=== PATIENT | male | born 1960 | race Caucasian/White ===

== ENCOUNTER → 2019-11-29 14:35 | Outpatient (BNVA) | payer MEDICARE, MEDICAID, SELFPAY | PROVIDERS: Family Provider Internal Medicine; PCP Internal Medicine; Visit Provider Specialist | DX: F31.9 Bipolar disorder, unspecified (principal) | CPT/HCPCS: 99213 ==

== ENCOUNTER 2019-12-17 11:50 | Inpatient (IN) | payer MEDICARE, MEDICAID, SELFPAY ==
[2019-12-17] VITALS (69 sets, daily range): BP systolic 79–132; BP diastolic 45–94; PULSE 65–124; RESP 5–23; TEMP 35.7–37.6; O2SAT 89–100; BMI 27.6
--- NOTE | 2019-12-17 12:07 | XR_ITS ---
WS: [id number] XR chest 1V portable [id number] REASON FOR EXAM: sob FINDINGS: Comparisons October 12, 2018. There is now evidence of an alveolar infiltrate in the basilar portion of the right lower lung. There is increased peribronchial markings noted bilaterally. There is normal appearance of the heart. XR/XR chest 1V portable [id number] IMPRESSION: Low-grade pneumonia bronchitis changes throughout both lung domínguez with pneumon ia right lower lung.
--- NOTE | 2019-12-17 12:09 | ECG_ITS ---
Measurements Intervals [place] Rate: 92 P: 46 [place]: 121 QRS: -4 QRSD: 92 T: 11 QT: 364 QTc: 452 SINUS RHYTHM LOW QRS VOLTAGE IN PRECORDIAL LEADS [QRS DEFLECTION < 1.0 mV IN CHEST LEADS] INCOMPLETE RIGHT BUNDLE BRANCH BLOCK [90+ ms QRS DURATION, TERMINAL R IN V1/V2, 40+ ms S IN I/aVL/V4/V5/V6] INTERPRETATION BASED ON A DEFAULT AGE OF 40 YEARS Compared to ECG 10/21/2015 20:02:40 Incomplete right bundle-branch block now present Electronically Signed On 12-18-2019 17:00:53 CDT by Lebron Nevarez M.D. [id number] hairston
--- NOTE | 2019-12-17 12:10 | USR_ITS ---
PROCEDURE INFORMATION: Exam: US Duplex Lower Extremity Veins, Bilateral Exam date and time: 12/17/2019 12:11 PM Age: 59 years old Clinical indication: Other: Leg weakness; Patient HX: History of dvt in the right TECHNIQUE: Imaging protocol: Real-time duplex ultrasound of the extremities with 2-D gee scale, color Doppler flow and spectral waveform analysis with image documentation. Complete exam focused on the bilateral lower extremity veins. COMPARISON: No relevant prior studies available. FINDINGS: Right deep veins: No deep venous thrombosis in the visualized right common femoral, popliteal, peroneal, or posterior tibial veins. Nonocclusive thrombus in the right superficial and deep femoral veins, which is reportedly chronic by history. Right superficial veins: Saphenofemoral junction is patent without thrombus. Left deep veins: No deep venous thrombosis in the visualized left common femoral, profunda femorals, superficial femoral, popliteal, peroneal, or posterior tibial veins. Left superficial veins: Saphenofemoral junction is patent without thrombus. Soft tissues: Subcutaneous edema. US/CV venous duplex [facility] [id number] IMPRESSION: 1. No deep venous thrombosis in the visualized left lower extremity. 2. Nonocclusive thrombus in the right superficial and deep femoral veins, which is reportedly chronic by history.
--- NOTE | 2019-12-17 12:12 | ED_ITS ---
HPI - General Adult General: Chief complaint: General Medical Stated complaint: fever/poss blood clot Time Seen by Provider: 12/17/19 11:53 History of Present Illness: HPI narrative: Patient caregiver reports the patient has had a fever today. Also report that he is usually able to help with transfers and with walking but today his legs are too weak to support him at all. Onset (ago): hour(s) Review of Systems General: Reports: 10 or more systems reviewed and unremarkable except in HPI and below Const: Reports: fever(s) Neuro: Reports: weakness in extremities and difficulty walking PFS ED PFSH: Medical History Alzheimers disease Bipolar 1 disorder Hypothyroidism, unspecified Trisomy 21 Social History Smoking and tobacco status: never smoked Alcohol intake: never Physical Exam HENMT: COMMON NORMALS: normocephalic HEAD & SCALP: normocephalic Neck/C-Spine: COMMON NORMALS: full ROM, no meningeal signs and no JVD Resp: COMMON NORMALS: normal respiratory effort, No retractions, No use of accessory muscles and clear to auscultation bilaterally AUSCULTATION: clear to auscultation bilaterally Cardio: COMMON NORMALS: no JVD, regular rate and regular rhythm RATE: regular rate RHYTHM: regular rhythm GI: COMMON NORMALS: Normal to inspection, nondistended, normoactive bowel sounds present Extremity: COMMON NORMALS: capillary refill normal, no joint enlargement and no clubbing, cyanosis or edema GENERAL: Yes weight-bearing difficulty Neuro: MENINGEAL SIGNS: Yes no meningeal signs Course Vital Signs: Vital signs: Vital Signs Temperature 99.7 F H 12/17/19 11:55 Pulse Rate 84 12/17/19 14:40 Respiratory Rate 19 H 12/17/19 14:40 Blood Pressure 97/54 12/17/19 14:40 Pulse Oximetry 89 L 12/17/19 14:40 [facility] - General Adult Lab Data: Labs: Lab Results 12/17/19 12/17/19 12/17/19 Range/Units 12:13 12:13 12:13 WBC 16.2 H (4.0-10.0) 10^3/ uL RBC 3.80 L (4.1-5.3) 10^6/u L Hgb 12.1 (11.7-16.6) g/dL Hct 38.9 L (42.0-52.0) % MCV 102.4 H (80-94) fL MCH 31.8 (28.0-34.0) pg MCHC 31.1 (30.0-36.0) g/dL RDW 14.3 (12.1-15.1) % Plt Count 139 (130-400) 10^3/c mm MPV 10.2 (7.4-10.4) fL Neut % (Auto) 90.6 % Lymph % (Auto) 3.5 % [place] % (Auto) 4.8 % Eos % (Auto) 0.1 % Baso % (Auto) 0.4 % Neut # (Auto) 14.7 H (1.8-7.7) 10^3/u L Lymph # (Auto) 0.6 L (0.8-4.8) 10^3/u L [place] # (Auto) 0.8 (0.2-0.9) 10^3/u L Eos # (Auto) 0.0 (0.0-0.8) 10^3/u L Baso # (Auto) 0.1 (0.0-0.1) 10^3/u L Nucleated RBC % (a uto) 0 % Nucleated RBCs # 0.0 /100WBC PT (10.5-13.3) SECO NDS INR (0.8-1.2) Sodium 143 (136-145) mmol/L Potassium 4.8 (3.5-5.1) mmol/L Chloride 104 (98-107) mmol/L Carbon Dioxide 26 (22-29) mmol/L Anion Gap 17.8 (5-19) BUN 20 (6-20) mg/dL Creatinine 1.3 H (0.7-1.2) mg/dL GFR Calculation 56.7 L (90-130) mL/min Glucose 128 H (65-115) mg/dL Calculated Osmolal ity 294 (285-295) mOsm/k g Lactate 3.0 H (0.5-2.2) mmol/L Calcium 8.9 (8.5-10.5) mg/dL Magnesium 1.8 (1.7-2.3) mg/dL Total Bilirubin 0.6 (0.15-1.2) mg/dL AST 26 (0-40) U/L ALT 16 (0-41) U/L Alkaline Phosphata se 78 (40-130) IU/L Troponin T Baselin e (0-15) ng/mL Troponin T 120 Min resighini (0-15) ng/mL Delta Troponin T (0-10) ABS# NT-Pro-B Natriuret Pep 122 (0-125) pg/mL Total Protein 6.4 L (6.6-8.7) g/dL Albumin 3.3 L (3.5-5.2) g/dL Globulin 3.1 (1.3-4.6) g/dL 12/17/19 12/17/19 12/17/19 Range/Units 12:13 12:13 14:19 WBC (4.0-10.0) 10^3/ uL RBC (4.1-5.3) 10^6/u L Hgb (11.7-16.6) g/dL Hct (42.0-52.0) % MCV (80-94) fL MCH (28.0-34.0) pg MCHC (30.0-36.0) g/dL RDW (12.1-15.1) % Plt Count (130-400) 10^3/c mm MPV (7.4-10.4) fL Neut % (Auto) % Lymph % (Auto) % [place] % (Auto) % Eos % (Auto) % Baso % (Auto) % Neut # (Auto) (1.8-7.7) 10^3/u L Lymph # (Auto) (0.8-4.8) 10^3/u L [place] # (Auto) (0.2-0.9) 10^3/u L Eos # (Auto) (0.0-0.8) 10^3/u L Baso # (Auto) (0.0-0.1) 10^3/u L Nucleated RBC % (a uto) % Nucleated RBCs # /100WBC PT 22.80 H (10.5-13.3) SECO NDS INR 1.93 H (0.8-1.2) Sodium (136-145) mmol/L Potassium (3.5-5.1) mmol/L Chloride (98-107) mmol/L Carbon Dioxide (22-29) mmol/L Anion Gap (5-19) BUN (6-20) mg/dL Creatinine (0.7-1.2) mg/dL GFR Calculation (90-130) mL/min Glucose (65-115) mg/dL Calculated Osmolal ity (285-295) mOsm/k g Lactate (0.5-2.2) mmol/L Calcium (8.5-10.5) mg/dL Magnesium (1.7-2.3) mg/dL Total Bilirubin (0.15-1.2) mg/dL AST (0-40) U/L ALT (0-41) U/L Alkaline Phosphata se (40-130) IU/L Troponin T Baselin e 21 H (0-15) ng/mL Troponin T 120 Min resighini 19.42 H (0-15) ng/mL Delta Troponin T -1.58 L (0-10) ABS# NT-Pro-B Natriuret Pep (0-125) pg/mL Total Protein (6.6-8.7) g/dL Albumin (3.5-5.2) g/dL Globulin (1.3-4.6) g/dL Discharge Plan Discharge Patient Disposition: Admitted As Inpatient Clinical Impression: Trisomy 21 Sepsis Qualifiers: Sepsis type: sepsis due to unspecified organism Sepsis acute organ dysfunction status: unspecified Qualified Code(s): A41.9 - Sepsis, unspecified organism Condition: Stable Referrals: Jimmy Gomez MD [Primary Care Provider] - Coding Level of Care Code ED Domestic Maid for [facility] Fwd Exam Detailed
[2019-12-17] MEDS: sodium chloride 0.9% 500 ML IV (12:25)
[2019-12-17 12:30] LABS: Basophils # 0.1 10^3/uL (0.0-0.1); Basophils % 0.4 %; Eosinophils % 0.1 %; Hematocrit 38.9 % (42.0-52.0); Hemoglobin 12.1 g/dL (11.7-16.6); Lymphocytes # 0.6 10^3/uL (0.8-4.8); Lymphocytes % 3.5 %; Mean Corpuscular HGB Conc 31.1 g/dL (30.0-36.0); Mean Corpuscular Hemoglobin 31.8 pg (28.0-34.0); Mean Corpuscular Volume 102.4 fL (80-94); Mean Platelet Volume 10.2 fL (7.4-10.4); Monocytes # 0.8 10^3/uL (0.2-0.9); Monocytes % 4.8 %; Neutrophils # 14.7 10^3/uL (1.8-7.7); Neutrophils % 90.6 %; Nucleated Red Blood Cells % 0 %; Platelet Count 139 10^3/cmm (130-400); Red Cell Distribution Width 14.3 % (12.1-15.1); White Blood Count 16.2 10^3/uL (4.0-10.0)
[2019-12-17 12:47] LABS: Troponin(5th) Baseline 21 ng/mL (0-15)
[2019-12-17 12:56] LABS: Alanine Aminotransferase 16 U/L (0-41); Albumin Level 3.3 g/dL (3.5-5.2); Alkaline Phosphatase 78 IU/L (40-130); Anion Gap 17.8 (5-19); Aspartate Amino Transferase 26 U/L (0-40); Blood Urea Nitrogen 20 mg/dL (6-20); Calcium 8.9 mg/dL (8.5-10.5); Carbon Dioxide 26 mmol/L (22-29); Chloride 104 mmol/L (98-107); Globulin 3.1 g/dL (1.3-4.6); Glomerular Filtration Rate 56.7 mL/min (90-130); Glucose 128 mg/dL (65-115); Magnesium 1.8 mg/dL (1.7-2.3); NT Pro B Type Natriuretic Pept 122 pg/mL (0-125); Osmolality Calculated 294 mOsm/kg (285-295); Potassium 4.8 mmol/L (3.5-5.1); Sodium 143 mmol/L (136-145); Total Bilirubin 0.6 mg/dL (0.15-1.2); Total Protein 6.4 g/dL (6.6-8.7)
[2019-12-17] MEDS: piperacillin-tazobactam 4.5 GM in sodium chloride 0.9% (plus) 50 ML IV (13:35)
--- NOTE | 2019-12-17 14:09 | ECG_ITS ---
Measurements Intervals [place] Rate: 72 P: 43 [place]: 129 QRS: 23 QRSD: 90 T: 40 QT: 398 QTc: 436 SINUS RHYTHM LOW QRS VOLTAGE IN PRECORDIAL LEADS [QRS DEFLECTION < 1.0 mV IN CHEST LEADS] Compared to ECG 10/21/2015 20:02:40 No significant changes Electronically Signed On 12-18-2019 17:06:46 CDT by Lebron Nevarez M.D. [id number]
[2019-12-17] MEDS: lidocaine 2% Urojet 20 mL TOPICAL (14:33)
[2019-12-17] MEDS: sodium chloride 0.9% 1,000 ML 999 ML IV (14:41)
[2019-12-17 14:43] LABS: Troponin 5 2HR 19.42 ng/mL (0-15)
--- NOTE | 2019-12-17 14:56 | PC.NURSE ---
unable to get past the prostate with multiple attempts and multiple different sizes of catheters.
--- NOTE | 2019-12-17 14:57 | PC.NURSE ---
Patient bladder scanned and only 94 mL in bladder
[2019-12-17 15:00] LABS: INR 1.93 (0.8-1.2)
[2019-12-17 15:01] LABS: Troponin 5 2HR Delta -1.58 ABS# (0-10)
--- NOTE | 2019-12-17 15:06 | CTR_ITS ---
PROCEDURE INFORMATION: Exam: CT Abdomen And Pelvis With Contrast Exam date and time: 12/17/2019 3:09 PM Age: 59 years old Clinical indication: Patient HX: Fever, weakness, SOB, abd discomfort; Additional info: Abd pain TECHNIQUE: Imaging protocol: Computed tomography of the abdomen and pelvis with intravenous contrast. Radiation optimization: All CT scans at this facility use at least one of these dose optimization techniques: automated exposure control; mA and/or kV adjustment per patient size (includes targeted exams where dose is matched to clinical indication); or iterative reconstruction. Contrast material: OMNI 300; Contrast volume: 95 ml; Contrast route: 20G; COMPARISON: US Bladder wwo Post Void [id number] 01/15/2014 10:32 AM RADIATION DOSE METRICS: Total DLP: 1330.32 mGy-cm FINDINGS: The examination performed is degraded by motion artifact. Lungs: Interstitial prominence and chronic granulomatous disease. Poorly defined 4 mm nodular density in the left lower lobe (series 2: Image 1).For patients at low risk (minimal or absent history of smoking and of other known risk factors), no routine follow-up is indicated. For patients at high risk (history of smoking or of other known risk factors), consider optional CT Chest at 12 months. [place] H, Fleischner Society, 2017. Borderline cardiomegaly. Small hiatal hernia. Liver: Macey's lobe, without focal hepatic mass. Gallbladder and bile ducts: No cholelithiasis or biliary ductal dilatation. Pancreas: No pancreatic mass or ductal dilatation. Spleen: No splenomegaly. 10 mm accessory spleen. Adrenals: Unremarkable adrenals. Kidneys and ureters: Dilatation of the left renal pelvis and/or parapelvic cysts, which are poorly differentiated in the absence of contrast opacification. No ureteral dilatation. Stomach and bowel: Questionable wall thickening in the nondistended stomach. No significant small bowel dilatation. Copious stool, in a pattern of constipation. Diverticula, without pericolonic inflammation. Appendix: No acute appendicitis. Intraperitoneal space: No free fluid. Vasculature: Normal caliber of the abdominal aorta. Lymph nodes: No pathologically enlarged lymph nodes. Bladder: Marked circumferential bladder wall thickening. Reproductive: Prostate calcification. Bones/joints: Levoscoliosis. Degenerative change and disc bulging. Soft tissues: Bowel containing left inguinal hernia, without high-grade obstruction. CT/CT abdomen pelvis w con* [id number] IMPRESSION: 1. Dilatation of the left renal pelvis and/or parapelvic cysts, which are poorly differentiated in the absence of contrast opacification. 2. Marked circumferential bladder wall thickening. 3. Additional findings as described above. Radiation Dose CTDIVOL = (mGy): DLP = 1330.32 (mGy-cm)
--- NOTE | 2019-12-17 15:15 | PM.HP ---
Providers/Chief Complaint Primary Care Provider: Jimmy Gomez MD Chief Complaint: fever/poss blood clot History of Present Illness Nicanor Hung is a 59 year old male with Down syndrome who presents with 2-day history of increasing weakness. He has had some cough. A fever is indicated by his caregiver. He is not for sure exactly how high it was. No vomiting or diarrhea. Seems lethargic at times. Worker reports seemed to have some right lower quadrant pain, yesterday but obviously this is difficult for the patient to communicate. Has been urinating quite a bit but has not seem to indicate any pain. No exposure to anybody with COVID and no ill contacts. Lives with caregiver in independent living. Guardian is Teto Velasquez. No recent antibiotics. Patient cannot give a history as most of the time he is nonverbal. Caregiver with him now usually just drives him. While in the emergency department he required some oxygen. Urinalysis was attempted by cath 3 different times, without success. Caregiver indicates he urinates on his own without difficulty usually. Bladder scan was done while I was in the room and only 90 cc was indicated. Review of Systems General: Reports: ROS unobtainable due to mental status (Typically nonverbal with Down's) Medications/Allergies Home Medications Medication Instructions Recorded Confirmed Last Taken Type levothyroxine 112 mcg capsule 112 mcg PO DAILY #30 cap 08/21/19 12/17/19 12/17/19 Rx inhalational spacing device #1 each 09/26/19 12/17/19 Unknown Rx acetaminophen 325 mg tablet 650 mg PO QID PRN tab 11/08/19 12/17/19 Unknown History aluminum-mag hydroxide-simethicone 5 ml PO QID PRN 11/08/19 12/17/19 Unknown History 400 mg-400 mg-40 mg/5 mL oral susp bismuth subsalicylate 525 mg/15 mL 525 mg PO Q30M PRN 11/08/19 12/17/19 Unknown History oral suspension carbamide peroxide 6.5 % ear drops 5 drop EAR-BOTH DAILY 11/08/19 12/17/19 Unknown History citalopram 40 mg tablet 40 mg PO DAILY 11/08/19 12/17/19 12/17/19 History dextromethorphan-guaifenesin 10 10 ml PO Q4H PRN 11/08/19 12/17/19 Unknown History mg-100 mg/5 mL oral liquid donepezil 5 mg tablet 5 mg PO DAILY 11/08/19 12/17/19 12/17/19 History fluticasone 500 mcg-salmeterol 50 1 inh INHALATION BID 11/08/19 12/17/19 Unknown History mcg/dose blistr powdr for inhalation fluticasone propionate 230 2 puff INHALATION BID 11/08/19 12/17/19 Unknown History mcg-salmeterol 21 mcg/actuation HFA inhaler loratadine 10 mg tablet 10 mg PO DAILY 11/08/19 12/17/19 12/17/19 History magnesium hydroxide 2,400 mg/10 mL 5 ml PO DAILY PRN 11/08/19 12/17/19 Unknown History oral suspension olanzapine 2.5 mg tablet 5 mg PO DAILY 11/08/19 12/17/19 Unknown History olanzapine 5 mg tablet 5 mg PO DAILY 11/08/19 12/17/19 12/16/19 History warfarin 2 mg tablet 2 mg PO .DAILY DIRECTED tab 11/08/19 12/17/19 12/16/19 History ketoconazole 1 applic TOPICAL BID 12/17/19 12/17/19 12/17/19 History [id number] See Rx Instructions .ROUTE .COMPLEX 12/17/19 12/17/19 Unknown History [Neosporin (bib-gfy-boicy)] Allergies Allergy/AdvReac Type Severity Reaction Status Date / Time No Known Allergies Allergy Verified 11/29/19 15:02 PFSH Acute PFSH: Medical History (Updated 12/17/19 @ 15:25 by Ang Hunter MD) Alzheimers disease Bipolar 1 disorder Chronic anticoagulation DVT (deep venous thrombosis) Hypothyroidism, unspecified Pathological dislocation of both shoulder joints Trisomy 21 Social History Smoking and tobacco status: never smoked Alcohol intake: never Supplemental PFSH Information: Secondary to mental status unable to obtain family history. No current tobacco alcohol or illicit substance use. This was obtained from caregiver. Vitals/I&O/Wt Last Vital Signs Temp 99.7 F H 12/17/19 11:55 Pulse 84 12/17/19 14:40 Resp 19 H 05/31/20 14:40 BP 97/54 12/17/19 14:40 Pulse Ox 89 L 12/17/19 14:40 12/17/19 12/17/19 12/17/19 06:59 14:59 22:59 Intake Total 550 / 550 Balance 550 / 550 Weight last 48 hrs Weight 77.836 kg Physical Exam Narrative: EXAM NARRATIVE: General exam is no apparent distress, opens eyes and allows exam. Blood pressure noted to be low on admission but is now improved. HEENT: Pupils equally round. Oropharynx appears clear without erythema or exudate Neck is supple no lymphadenopathy or thyromegaly Cardiovascular regular rate and rhythm without murmur Lungs show a few crackles at the bases bilaterally. Abdomen is soft, obese. I cannot delineate any tenderness currently. No obvious organomegaly demonstrates uncircumcised male with a little bit of blood at his meatus Extremities trace edema bilaterally. No cyanosis or clubbing Skin without rash Neuro no focal deficits Data : 12/17/19 12:13 12/17/19 12:13 Micro: Microbiology 12/17/19 12:10 Blood Culture - Preliminary Blood SPECIMEN COLLECTED 12/17/19 12:13 Blood Culture - Preliminary Blood SPECIMEN COLLECTED Other data: CT abdomen and pelvis has been ordered Chest x-ray shows bibasilar infiltrates, official read pending. INR 1.93 LFTs largely normal. Troponin baseline 21, and no significant delta on repeat Venous duplex demonstrates nonocclusive thrombus right superficial and deep femoral veins which appear chronic EKG demonstrates sinus rhythm, left axis deviation, incomplete right bundle A&P Assessment and plan (1) Sepsis: As demonstrated by leukocytosis, history of fever, lethargy, hypotension on arrival. Source is not yet known. Per my read of x-ray he appears to have a bibasilar pneumonia. Initially will start on Zosyn If has any clinical worsening consider addition of vancomycin Continue to try to obtain urine in case UTI is present. With history of some abdominal discomfort we will also check CT abdomen and pelvis. I have visited briefly with urology that we may require their services for catheter placement if he cannot urinate it is known or has significant urinary retention. No evidence currently of septic shock as he already responded to fluid bolus. He is at high risk for fluid overload with his Down syndrome and already with some peripheral edema. IV fluids at maintenance currently and close clinical follow-up. Covid 19 testing will be done secondary to his history of cough and fever Status: Acute Qualifiers: Sepsis acute organ dysfunction status: unspecified Sepsis type: sepsis due to unspecified organism Qualified Code(s): A41.9 - Sepsis, unspecified organism (2) Leukocytosis: See above Status: Acute (3) Anticoagulated on Coumadin: INR near therapeutic. No other intervention for DVT prophylaxis needed today. Hold Coumadin currently in case any surgical procedures are needed If INR dropping tomorrow, consider institution of DVT prophylaxis dosing of Lovenox Status: Acute Additional A&P Information Down syndrome History of hypothyroidism, check TSH Dementia History of bipolar disorder Full code at this time Recently on Coumadin, INR 1.93. No DVT prophylaxis until reassessed tomorrow. Attestations Medical Necessity Statement*: Will need greater than 2 midnight stay for evaluation and treatment of sepsis Time Spent in Patient Care: Greater than 35 minutes Coding Level of Care Code Acute Electric Dolly Operator for [facility] Fwd Diagnoses Sepsis A41.9 Sepsis acute organ dysfunction status: unspecified Sepsis type: sepsis due to unspecified organism Leukocytosis D72.829 Anticoagulated on Coumadin Z79.01
[2019-12-17 15:23] LABS: Add On to Lab Order(s) Added
[2019-12-17] MEDS: iohexol 300 mg/mL 100 mL Btl IV (15:33)
[2019-12-17 15:45] LABS: Procalcitonin 0.81 ng/mL (0-0.5); Thyroid Stimulating Hormone 0.57 uIU/mL (0.27-4.20)
[2019-12-17] MEDS: sodium chloride 0.9% 1,000 ML 75 ML IV ×2 (16:15→22:41)
--- NOTE | 2019-12-17 16:25 | PC.NURSE ---
attempted to put on pt ,nonverbal appears scared and uncomfortable pulling away taken off for now sitting at bedside with him in isolation
--- NOTE | 2019-12-17 16:52 | PC.NURSE ---
continues to sit up in bed looking around on room air at this time sat of 92 heart rate 73. frequent looking out window of isolation room and looking at o2 sat probe and iv . appears scared at bedside in isolation room to offer calm support . nonverbal.but moves hand and head . ekg done
--- NOTE | 2019-12-17 18:09 | ECG_ITS ---
Measurements Intervals [place] Rate: 80 P: 46 [place]: 130 QRS: -11 QRSD: 93 T: 5 QT: 398 QTc: 460 SINUS RHYTHM LOW QRS VOLTAGE IN PRECORDIAL LEADS [QRS DEFLECTION < 1.0 mV IN CHEST LEADS] INCOMPLETE RIGHT BUNDLE BRANCH BLOCK [90+ ms QRS DURATION, TERMINAL R IN V1/V2, 40+ ms S IN I/aVL/V4/V5/V6] Compared to ECG 10/21/2015 20:02:40 Incomplete right bundle-branch block now present Electronically Signed On 12-18-2019 17:05:51 CDT by Lebron Nevarez M.D. [id number]
[2019-12-17 18:45] LABS: Troponin 5 6HR 16.19 ng/mL (0-15)
[2019-12-17 18:47] LABS: Troponin 5 6HR Delta -4.81 ng/L (0-12)
--- NOTE | 2019-12-17 19:12 | PC.NURSE ---
Unable to void Dr. Dozier at bedside with portable bladder scope for goodman placement. Large clots were expressed from meatus. Dr. Dozier unable to advance scope due to obstruction. Orders were given to prep for OR for cystoscopy for goodman placement and possible suprapublic catheter placement. Pt tolerated well.
--- NOTE | 2019-12-17 19:35 | PC.NURSE ---
Consent At 1935 DPOA Teto Lobato was notified by phone and consented to surgery for cystoscopy for goodman catheter placement with the possibility of supra pubic catheter placement. Second nurse verified authorization, see chart.
--- NOTE | 2019-12-17 19:38 | P.CONIM_ITS ---
Providers/Reason For Consult Consulting Physican/Specialty*: Urology/Dozier Reason for Consult*: Urinary retention, inability to pass catheter, urethral false passage Attending Physician: Ang Hunter MD Primary Care Provider: Jimmy Gomez MD History of Present Illness History of Present Illness Nicanor Hung is a 59 year old male who I evaluated for the first time tonight at the request of Ang Hunter for the above complaints. He is a 59-year-old Down syndrome patient who I saw x2 visits in 2013 for bloody urethral discharge and possibly a slow stream. Full work-up was reviewed including cystoscopy but his attendant felt that would require general anesthes ia. The bloody discharge spontaneously resolved. Bladder ultrasound showed no retention or bladder wall thickening. Cytology was negative. Physical exam revealed tight phimosis and bilateral testicular atrophy but no other gross pathology. Was placed on a return to clinic as needed basis. He presented this hospital stay with a 2-day history of weakness and cough. Subjective fever noted by his caregiver. Did not seem his usual self. No specific complaints of pain. No exposure to COVID although he is under COVID precautions. He is not able to address any of his symptoms due to nonverbal status. His blood pressure was somewhat low on evaluation in the emergency department and attempts at catheter placement were unsuccessful with ultimately bleeding noted. Further complicated by chronic warfarin 2 mg daily. Initially bladder scan showed about 90 cc in his bladder. Later he was rescanned with about 250 cc in his bladder but he did try to void and just had some blood. I was consulted for catheter placement PROCEDURE: Flexible cystoscopy with flexible cystoscope and flexible ureteroscope Scope was lubricated. Prepped and draped in the usual sterile fashion. Scope was introduced into the tight phimosis and under direct vision the urethral meatus was identified with the flexible cystoscope which was then passed and in the bulbar urethra there was a significant amount of trauma with no clear lumen identified. It appeared that there was probably a stricture in that area that was disrupted with catheter attempts. A 7 Faroese flexible ureteroscope was then utilized to see if this would help find the true lumen but all attempts were unsuccessful. I could not see anything that looked like a flap of normal mucosa leading to true lumen. Procedure was aborted after extensive trial of trying to identify the true lumen. Recommendations to take to the operating room for attempt at identification of the true lumen and if possible catheter placement over guidewire or suprapubic tube placement. Consent was obtained from his legal guardian for medical decisions Mr. Velasquez. Review of Systems General: Reports: ROS unobtainable due to mental status Meds/Allergies Home Medications and Allergies Home Medications Medication Instructions Recorded Confirmed Last Taken Type levothyroxine 112 mcg capsule 112 mcg PO DAILY #30 cap 08/21/19 12/17/19 12/17/19 Rx inhalational spacing device #1 each 09/26/19 12/17/19 Unknown Rx acetaminophen 325 mg tablet 650 mg PO QID PRN tab 11/08/19 12/17/19 Unknown History aluminum-mag hydroxide-simethicone 5 ml PO QID PRN 11/08/19 12/17/19 Unknown History 400 mg-400 mg-40 mg/5 mL oral susp bismuth subsalicylate 525 mg/15 mL 525 mg PO Q30M PRN 11/08/19 12/17/19 Unknown History oral suspension carbamide peroxide 6.5 % ear drops 5 drop EAR-BOTH DAILY 11/08/19 12/17/19 Unknown History citalopram 40 mg tablet 40 mg PO DAILY 11/08/19 12/17/19 12/17/19 History dextromethorphan-guaifenesin 10 10 ml PO Q4H PRN 11/08/19 12/17/19 Unknown History mg-100 mg/5 mL oral liquid donepezil 5 mg tablet 5 mg PO DAILY 11/08/19 12/17/19 12/17/19 History fluticasone 500 mcg-salmeterol 50 1 inh INHALATION BID 11/08/19 12/17/19 Unknown History mcg/dose blistr powdr for inhalation fluticasone propionate 230 2 puff INHALATION BID 11/08/19 12/17/19 Unknown Histo ry mcg-salmeterol 21 mcg/actuation HFA inhaler loratadine 10 mg tablet 10 mg PO DAILY 11/08/19 12/17/19 12/17/19 History magnesium hydroxide 2,400 mg/10 mL 5 ml PO DAILY PRN 11/08/19 12/17/19 Unknown History oral suspension olanzapine 2.5 mg tablet 5 mg PO DAILY 11/08/19 12/17/19 Unknown History olanzapine 5 mg tablet 5 mg PO DAILY 11/08/19 12/17/19 12/16/19 History warfarin 2 mg tablet 2 mg PO .DAILY DIRECTED tab 11/08/19 12/17/19 12/16/19 History ketoconazole 1 applic TOPICAL BID 12/17/19 12/17/19 12/17/19 History [id number] See Rx Instructions .ROUTE .COMPLEX 12/17/19 12/17/19 Unknown History [Neosporin ([id number])] Allergies Allergy/AdvReac Type Severity Reaction Status Date / Time No Known Allergies Allergy Verified 11/29/19 15:02 Current Medications Current Medications Generic Name Dose Route Start Last Admin Trade Name Freq PRN Reason Stop Dose Admin Sodium Chloride 1,000 mls @ 75 mls/hr 12/17/19 15:41 12/17/19 16:15 Sodium Chloride 0.9% IV 75 mls/hr .[id number] PATRICE Administration PFSH Acute PFSH: Medical History Alzheimers disease Bipolar 1 disorder Chronic anticoagulation DVT (deep venous thrombosis) Hypothyroidism, unspecified Pathological dislocation of both shoulder joints Trisomy 21 Social History Smoking and tobacco status: never smoked Alcohol intake: never Vitals/I&O/Wt Last Vital Signs Temp 99.7 F H 12/17/19 11:55 Pulse 78 12/17/19 16:30 Resp 14 12/17/19 16:30 BP 93/76 12/17/19 16:30 Pulse Ox 94 12/17/19 16:30 12/17/19 12/17/19 12/17/19 06:59 14:59 22:59 Intake Total 550 / 550 Balance 550 / 550 Weight last 48 hrs Weight 171 lb 9.6 oz Physical Exam Const: COMMON NORMALS: no acute distress, alert and well nourished GENERAL APPEARANCE: well kempt and well developed NUTRITIONAL APPEARANCE: obese morbidly obese HENMT: COMMON NORMALS: normocephalic and atraumatic HEAD & SCALP: normocephalic and atraumatic Eye: COMMON NORMALS: no scleral icterus Neck/C-Spine: GENERAL: Yes normal visual inspection Resp: COMMON NORMALS: normal respiratory effort EFFORT & INSPECTION: No labored and Yes Actively coughing OTHER: Coarse breath sounds. Cardio: COMMON NORMALS: regular rate and regular rhythm RATE: regular rate RHYTHM: regular rhythm Extremity: NARRATIVE EXTREMITY EXAM: Mild edema. 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
--- NOTE | 2019-12-17 20:08 | P.ANESASSM_ITS ---
Pre-Anesthetic Assessment Pre-Anesthetic Assessment: Height/Weight: Height 1.68 m Weight 77.836 kg Temp Pulse Resp BP Pulse Ox 99.7 F H 78 14 93/76 94 12/17/19 11:55 12/17/19 16:30 12/17/19 16:30 12/17/19 16:30 12/17/19 16:30 Proposed Procedure: Operation Date: 12/17/19 20:30 Proposed Procedures p Cystoscopy(Not Applicable) - Kwaku Dozier MD Last intake: Intake Last Liquid Date 12/17/19 Last Liquid Time 16:00 Last Solid Date 12/17/19 Last Solid Time 16:00 Social: Social History: No alcohol and No tobacco Exam: Pre-Anes Outpt Exam: alert, oriented x 3 (non verbal, ) and clear to auscultation bilaterally Airway: Submandibular: WNL Cervical ROM: WNL MP: 3 Dentition: False (upper and lower) History/ROS: No significant history except as noted Pulmonary: Pulmonary: Asthma CV/HEM: CV/HEM: DVT : : Chronic renal Insufficiency Hepatic: Hepatic: None reported GI: GI: GERD Metabolic: Metabolic: Thyroid Musc/skel: Musc/skel: OA/DJD Comments: bilat shoulder dislocations Neuropsych: Neuropsych: Bipolar and Dementia Comments: trisomy 21 Anesthetic Plan: ASA status: 3E Anesthesia: Anesthesia Evaluation and General Risk of > 500 ml blood loss (7ml/kg in children): No Meds/Allergies Current Medications: Current Medications Generic Name Dose Route Start Last Admin Trade Name Freq PRN Reason Stop Dose Admin Sodium Chloride 1,000 mls @ 75 ml s/hr 12/17/19 15:41 12/17/19 16:15 Sodium Chloride 0.9% IV 75 mls/hr .[id number] PATRICE Administration PFSH Anesthesia PFSH: Medical History Alzheimers disease Bipolar 1 disorder Chronic anticoagulation DVT (deep venous thrombosis) Hypothyroidism, unspecified Pathological dislocation of both shoulder joints Trisomy 21 Social History Smoking and tobacco status: never smoked Alcohol intake: never Supplemental PFSH Information: Secondary to mental status unable to obtain family history. No current tobacco alcohol or illicit substance use. This was obtained from caregiver. Data Anesthesia CBC & Chem 7: 12/17/19 12:13 12/17/19 12:13 Other Labs: Laboratory Results - last 48 hr 12/17/19 12/17/19 12/17/19 12:13 12:13 12:13 WBC 16.2 H RBC 3.80 L Hgb 12.1 Hct 38.9 L MCV 102.4 H MCH 31.8 MCHC 31.1 RDW 14.3 Plt Count 139 MPV 10.2 Neut % (Auto) 90.6 Lymph % (Auto) 3.5 [place] % (Auto) 4.8 Eos % (Auto) 0.1 Baso % (Auto) 0.4 Neut # (Auto) 14.7 H Lymph # (Auto) 0.6 L [place] # (Auto) 0.8 Eos # (Auto) 0.0 Baso # (Auto) 0.1 Nucleated RBC % (auto) 0 Nucleated RBCs # 0.0 PT INR Sodium 143 Potassium 4.8 Chloride 104 Carbon Dioxide 26 Anion Gap 17.8 BUN 20 Creatinine 1.3 H GFR Calculation 56.7 L Glucose 128 H Calculated Osmolality 294 Lactate 3.0 H Calcium 8.9 Magnesium 1.8 Total Bilirubin 0.6 AST 26 ALT 16 Alkaline Phosphatase 78 Troponin I 6 Hour Troponin I Hi Sens Del Troponin T Baseline Troponin T 120 Minute Delta Troponin T NT-Pro-B Natriuret Pep 122 Total Protein 6.4 L Albumin 3.3 L Globulin 3.1 Procalcitonin TSH 12/17/19 12/17/19 12/17/19 12:13 12:13 14:19 WBC RBC Hgb Hct MCV MCH MCHC RDW Plt Count MPV Neut % (Auto) Lymph % (Auto) [place] % (Auto) Eos % (Auto) Baso % (Auto) Neut # (Auto) Lymph # (Auto) [place] # (Auto) Eos # (Auto) Baso # (Auto) Nucleated RBC % (auto) Nucleated RBCs # PT 22.80 H INR 1.93 H Sodium Potassium Chloride Carbon Dioxide Anion Gap BUN Creatinine GFR Calculation Glucose Calculated Osmolality Lactate Calcium Magnesium Total Bilirubin AST ALT Alkaline Phosphatase Troponin I 6 Hour Troponin I Hi Sens Del Troponin T Baseline 21 H Troponin T 120 Minute 19.42 H Delta Troponin T -1.58 L NT-Pro-B Natriuret Pep Total Protein Albumin Globulin Procalcitonin TSH 12/17/19 12/17/19 14:19 18:15 WBC RBC Hgb Hct MCV MCH MCHC RDW Plt Count MPV Neut % (Auto) Lymph % (Auto) [place] % (Auto) Eos % (Auto) Baso % (Auto) Neut # (Auto) Lymph # (Auto) [place] # (Auto) Eos # (Auto) Baso # (Auto) Nucleated RBC % (auto) Nucleated RBCs # PT INR Sodium Potassium Chloride Carbon Dioxide Anion Gap BUN Creatinine GFR Calculation Glucose Calculated Osmolality Lactate Calcium Magnesium Total Bilirubin AST ALT Alkaline Phosphatase Troponin I 6 Hour 16.19 H Troponin I Hi Sens Del -4.81 L Troponin T Baseline Troponin T 120 Minute Delta Troponin T NT-Pro-B Natriuret Pep Total Protein Albumin Globulin Procalcitonin 0.81 H TSH 0.57 Micro: Microbiology 12/17/19 12:10 Blood Culture - Preliminary Blood SPECIMEN COLLECTED 12/17/19 12:13 Blood Culture - Preliminary Blood SPECIMEN COLLECTED Cardiac Studies: No Data to Display
--- NOTE | 2019-12-17 20:20 | PC.NURSE ---
Patient to OR To OR via bed on 3L NC. Consent received, preoperative check list completed and chlorhexidine gluconate bath given. Mask placed on patient for transport. 20 gauge IV to right forearm patent and intact.
--- NOTE | 2019-12-17 20:26 | SC_ITS ---
WS: [id number] C-arm [place] for Urology REASON FOR EXAM: intra-op FINDINGS: Intraoperative images show filling of the bladder with irregular diverticulum of the bladde r. The ureters were not identified on these images. SC/C-arm [facility] for Urology IMPRESSION: Dilated urinary bladder with diverticulum.
[2019-12-17] MEDS: piperacillin-tazobactam 3.375 GM in sodium chloride 0.9% (plus) 50 ML IV (20:34)
[2019-12-17] MEDS: iohexol 300 mg/mL 50 mL Btl (OR ONLY) XX (21:15)
[2019-12-17] MEDS: neomycin-poly-bacitracin oint 28 gm 1 APPLIC TOPICAL (21:48)
--- NOTE | 2019-12-17 21:48 | P.OP_ITS ---
Operative Report Date of procedure: December 17, 2019 Pre-op Diagnosis: Urinary retention, inability to place urethral catheter, multiple false passages Post-op diagnosis: same Procedure Done: 1. Urethroscopy 2. Retrograde urethrogram 3. Suprapubic tube placement percutaneously Implants: 10 [place]er suprapubic Das catheter Pathology: none sent Surgeon: Tasia Anesthesia: General Estimated blood loss: Less than 10 cc Urine output: Not measured Complications: No surgical complications but failed to be able to access the true urethral lumen due to severe false passages and urethral trauma. Suprapubic tube was placed percutaneously without difficulty. Findings: Despite extensive endoscopic investigation with a very small ureteroscope I could never find the true lumen. Retrograde urethrogram showed no extravasation into surrounding tissues but there was essentially blind ending passageways. 10 Hong Konger Das catheter placed suprapubically with percutaneous suprapubic tube catheter set Condition: stable Disposition: ICU Brief History: Homero is a very pleasant 59-year-old Down syndrome nonverbal patient who presented with fever, cough, pneumonia. A catheter was attempted to be placed to monitor urine output due to concern for sepsis. Apparently multiple attempts were made in the emergency department unsuccessfully with different catheters. There was some blood. Bladder scan at that time showed about 90 cc. Because the patient did spontaneously void on his own at baseline it was decided to give a further trial of voiding but he failed to initiate a stream with his much is 250 cc in his bladder. Prior to bringing him to the operating room a flexible cystoscopy and then a flexible ureteroscope were used to try to find the true lumen but they were unsuccessful. It was decided to reattempt in the operating room under anesthesia with more controlled setting and if unsuccessful place a suprapubic tube. His CT scan was thoroughly evaluated and the bladder though thickened and what appeared to be fairly low volume in it at that time was positioned such that there was no bowel anterior to the bladder. He had had no prior abdominal surgeries in that area. Did have a large inguinal hernia incision that was well-healed though on the right side. Procedure: After emergent evaluation examination and obtaining of informed consent from his medical guardian he was taken to the operating suite on 12/17/2019 where general anesthesia was administered under COVID precaution protocols since he is under investigation. Appropriate timeout was performed. Prepped and draped in usual sterile fashion in dorsolithotomy position pain careful attention to avoiding pressure points. The tight phimosis foreskin was stretched with hemostat. A 6 [place] Konger mini ureteroscope was then advanced through the preputial skin into the urethra. There were multiple levels of mild trauma but the most concerning area was a deep bulbar urethra where there was a generalized traumatized appearance. There appeared to be multiple directions of false passages. No severe bleeding at the time. I could never identify the true lumen nor any flaps of mucosa that might have been created with 1 of the false passages. I spent about 30 to 40 minutes looking. A retrograde urethrogram was performed showing no evidence of extravasation but did show some multiple blind-ending avenues. Gentle attempts at passing a flexible tip guidewire was unsuccessful. Fluoroscopy was utilized during this time and the wire just simply curled. Fluoroscopy was then utilized to visualize the bladder which was distended with contrast from a CT scan earlier. The fluoroscopic unit was then placed in a lateral position in order to help visualize the entry way into the bladder with a percutaneous needle placement. Approximately 1 inch above the symphysis pubis (which was the preferable area based on CT scan evaluation) a 22-gauge 3.5 spinal needle was advanced posteriorly and popped into the bladder. Good flow demonstrated without bleeding. The bladder could be palpated somewhat but he was rather obese with a thick abdominal wall. A percutaneous suprapubic catheter kit was utilized with a 14 Hong Konger grooved trocar, 10 Hong [place]er Das catheter, and stylette. The catheter was secured in the trocar in appropriate position. A puncture incision was made in the appropriately determined spot as above. Hemostat was passed down to the abdominal wall and blunt dissection was utilized. The suprapubic trocar was then passed without difficulty into the bladder with good drainage noted through the Das catheter. With the lateral position fluoroscopy assisting with guidance the trocar was passed approximately another 2 inches into the bladder well away from the posterior wall. The stylette was then placed in the catheter and the trocar was then backed off of the catheter. The balloon was inflated and confirmed to be functioning. Urine continued to drain. The catheter was secured to the skin with 2 heavy silk sutures and a drain sponge was placed. Some antibiotic ointment was used on the incision site. Catheter was confirmed to be functioning well and the procedure completed. He tolerated the procedure well without complications and was awakened in the operating room and sent directly to the ICU. PLANS: 1. Maintain suprapubic catheter with plans for change to a larger size catheter in approximately 1 month. 2. Sequential increase catheter size and at some point consider reevaluation of the urethra possibly from a retrograde and antegrade approach. 3. Given the degree of trauma I think that there is a reasonably good chance that he will stenosed completely and have a impassable urethral stricture.
--- NOTE | 2019-12-17 22:19 | PC.NURSE ---
Back to unit From OR at 2210. Eyes open spontanenously and lethargic. Large snoring on arrival to unit , 8 liters via simple mask. Breathing even and non-labored. Lung sounds coarse throughout. No pain per flacc scale. Pt has Suprapubic catheter sutured in place. Pt placed in droplet/contact isolation pending covid results.
--- NOTE | 2019-12-17 22:29 | ANE.PACU2 ---
Inpatient post-anesthesia follow up: Vital signs: Temperature 98.3 F Pulse Rate [Monito r] 100 Pulse Rate 74 Respiratory Rate 14 Blood Pressure [Le ft Arm] 80/46 Blood Pressure 95/61 Pulse Oximetry 94 Oxygen Delivery Me thod Oxymask Oxygen Flow Rate 10 Fraction of Inspir ed Oxygen Hydration adequate: Yes Nausea and vomiting: No Pain level: Other Pain level: non verbal appears comfortable Mental status: Baseline
[2019-12-17 22:51] LABS: Bilirubin Urine Neg (NEGATIVE); Blood Urine 3+ (Negative); Glucose Urine UA Norm (Normal); Ketones Urine Negative (Negative); Nitrate Urine Negative (Negative); Protein Urine Neg (Negative); Specific Gravity, Urine 1.005 (1.005-1.030); Urine Appearance SL Hazy (CLEAR); Urine Color Straw (Yellow); pH Urine 5 (5-7)
[2019-12-17 22:52] LABS: Add Urine Microscopic? YES; Leukocyte Esterase Urine Negative (Negative); Urobilinogen Urine Norm (Negative)
[2019-12-17 22:53] LABS: Add Urine Culture? Yes; Bacteria Urine TRACE; Hyaline Casts Urine 0-4; Mucus Urine TRACE; RBC Urine >100 /hpf (0-2); Squamous Epithelial Cell Urine 0-4 (0-5); WBC Urine 0-4 /hpf (0-5)
[2019-12-18] VITALS (27 sets, daily range): BP systolic 79–116; BP diastolic 52–75; PULSE 62–92; RESP 10–21; TEMP 36.1–37.4; O2SAT 89–98
--- NOTE | 2019-12-18 02:35 | PC.NURSE ---
Physician notification Lung sounds more coarse with rhonchi, pt asleep with shallow respiration. Weak cough. O2 saturations 90-93 on 3L NC. Frequent periodic episodes of sleep apnea, physician aware. Chest xray ordered and ordered to hold fluids until results obtained.
--- NOTE | 2019-12-18 02:39 | XR_ITS ---
WS: [id number] XR chest 1V portable [id number] REASON FOR EXAM: crackles FINDINGS: Cardiomegaly is noted the heart is larger than previous exam. Interstitial pulmonary edema seen bilaterally with small amount of right pleural effusion. There is no pneumonia, pneumothorax, or consolidation. XR/XR chest 1V portable [id number] IMPRESSION: Interstitial pulmonary edema Mild right pleural effusion.
[2019-12-18] MEDS: piperacillin-tazobactam 3.375 GM in sodium chloride 0.9% (plus) 50 ML IV ×3 (03:28→20:25)
[2019-12-18 03:32] LABS: INR 1.95 (0.8-1.2)
[2019-12-18 03:37] LABS: Basophils # 0.1 10^3/uL (0.0-0.1); Basophils % 0.7 %; Eosinophils # 0.2 10^3/uL (0.0-0.8); Eosinophils % 1.6 %; Hematocrit 37.6 % (42.0-52.0); Hemoglobin 11.6 g/dL (11.7-16.6); Lymphocytes # 0.8 10^3/uL (0.8-4.8); Lymphocytes % 8.4 %; Mean Corpuscular HGB Conc 30.9 g/dL (30.0-36.0); Mean Corpuscular Hemoglobin 32.1 pg (28.0-34.0); Mean Corpuscular Volume 104.2 fL (80-94); Mean Platelet Volume 10.3 fL (7.4-10.4); Monocytes # 0.6 10^3/uL (0.2-0.9); Monocytes % 6.5 %; Neutrophils # 7.8 10^3/uL (1.8-7.7); Neutrophils % 82.5 %; Nucleated Red Blood Cells % 0 %; Platelet Count 122 10^3/cmm (130-400); Red Blood Count 3.61 10^6/uL (4.1-5.3); Red Cell Distribution Width 14.5 % (12.1-15.1); White Blood Count 9.5 10^3/uL (4.0-10.0)
[2019-12-18 03:46] LABS: Alanine Aminotransferase 15 U/L (0-41); Albumin Level 2.8 g/dL (3.5-5.2); Alkaline Phosphatase 67 IU/L (40-130); Anion Gap 11.1 (5-19); Aspartate Amino Transferase 26 U/L (0-40); Blood Urea Nitrogen 15 mg/dL (6-20); Calcium 7.4 mg/dL (8.5-10.5); Carbon Dioxide 26 mmol/L (22-29); Chloride 109 mmol/L (98-107); Globulin 3.2 g/dL (1.3-4.6); Glomerular Filtration Rate 99.3 mL/min (90-130); Glucose 82 mg/dL (65-115); Osmolality Calculated 289 mOsm/kg (285-295); Potassium 4.1 mmol/L (3.5-5.1); Sodium 142 mmol/L (136-145)
[2019-12-18] MEDS: FUROsemide 10 mg/mL SDV 2mL 20 MG IVP (06:19)
--- NOTE | 2019-12-18 08:24 | PC.NURSE ---
Spoke with Nayeli Baldwin [phone] who states she is the warehouse operations manager at [facility] where the patient lives. Updated given Nayeli asked that the physician give her a call when he rounds on the patient this morning. Dr. Osborn notified and number given to him for Nayeli Baldwin.
--- NOTE | 2019-12-18 08:58 | P.PN_ITS ---
Subjective Subjective: Interval history: Non-verbal, but appears in good spirits. Sitter reports he has had mild episode of cough with breakfast. Vitals/I&O/Wt Last Vital Signs Temp 98.0 F 12/18/19 08:00 Pulse 74 12/18/19 08:00 Resp 18 12/18/19 08:00 BP 97/63 12/18/19 08:00 Pulse Ox 96 12/18/19 08:00 12/17/19 12/18/19 12/18/19 22:59 06:59 14:59 Intake Total 1028.75 / 1578.75 210 / 1788.75 50 / 50 Output Total 905 / 905 275 / 1180 1080 / 1080 Balance 123.75 / 673.75 -65 / 608.75 -1030 / -1030 Weight last 48 hrs Weight 77.836 kg Physical Exam Const: COMMON NORMALS: no acute distress; negative for patient oriented x3 HENMT: COMMON NORMALS: oropharynx normal Neck/C-Spine: COMMON NORMALS: no JVD (Although difficult to examine neck) Resp: COMMON NORMALS: normal respiratory effort and clear to auscultation bilaterally AUSCULTATION: clear to auscultation bilaterally Cardio: COMMON NORMALS: no JVD (Although difficult to examine neck), regular rhythm, S1 normal heart sound present, S2 normal heart sound present and No murmurs present (Cardio) RHYTHM: regular rhythm HEART SOUNDS: S1 normal heart sound present and S2 normal heart sound present GI: COMMON NORMALS: Normal to inspection, nondistended, normoactive bowel soun ds present, Soft to palpation and non-tender PALPATION: Yes Soft to palpation Extremity: COMMON NORMALS: no joint enlargement and no pedal edema Neuro: COMMON NORMALS: moves all extremities; negative for patient oriented x3 Skin: COMMON NORMALS: no rashes or lesions noted GENERAL SKIN EXAM: no rashes or lesions noted Urinary Catheter Management^: Suprapubic: Cath Placed During This Visit: yes Reason for Continuing Indwelling Catheter: Acute Urinary Retention or Obstruction Urinary Catheter Date of Insertion: 12/17/19 Urinary Catheter Time of Insertion: 21:48 Data : 12/18/19 03:04 12/18/19 03:04 Micro: Microbiology 12/17/19 12:10 Blood Culture - Preliminary Blood SPECIMEN COLLECTED 12/17/19 12:13 Blood Culture - Preliminary Blood SPECIMEN COLLECTED A&P Assessment and plan (1) Pneumonia: At this time continue antibiotic with Zosyn. He was noted to have some cough with food and drink today. Prescription with [facility] appears he frequently loses focus, sometimes eating too fast, sometimes coughing with f ood. Needs to be frequently redirected to pay attention. At [place] [facility] he is on mechanical soft diet. Nickel sized bites. Overall, unfortunately, condition recently has been declining. He has not been needing assistance with ambulation, and other tasks. Is not normally on oxygen. For now pending COVID-19 testing. Would benefit from additional assessment by speech therapy, possibly barium sw allow evaluation. Status: Acute (2) Sepsis: Sepsis appears to be improving, with leukocytosis resolved, no tachyca rdia, afebrile. Overnight IV fluids had to be stopped. Requiring oxygen currently. With noted pulmonary edema on x-ray. Received Lasix. At this time will hold off additional fluids. Continue antibiotics. Follow-up COVID-19 results. UA not very suggestive of infection. Hematuria suspected secondary to urethral manipulation. Status: Acute Qualifiers: Sepsis acute organ dysfunction status: unspecified Sepsis type: sepsis due to unspecified organism Qualified Code(s): A41.9 - Sepsis, unspecified orga nism (3) Leukocytosis: Resolved Status: Acute (4) Anticoagulated on Coumadin: INR still 1.95. Per discussion w urology can continue warfarin. Status: Acute (5) Urinary retention: Urinary catheter could not be placed, including with flexible cystoscopy and flexible ureteroscope due to multiple false lumens, trauma. Suprapubic catheter had to be placed. At this time will stay in place with plans for change to a larger size in 1 month. With sequential increase in catheter size consideration at some point will be given to reevaluation of her urethra. See urology note regarding more details. Status: Acute Additional A&P Information Down syndrome History of hypothyroidism, check TSH Dementia History of bipolar disorder VTE Attestations Medical Necessity Statement*: Continue admission versus management of pneu monia, improving sepsis, urinary retention, status post suprapubic catheter in the setting of chronic anticoagulation, VTE. Coding Level of Care Code Acute Channel Program Manager for [facility] Diagnoses Pneumonia J18.9 Sepsis A41.9 Sepsis acute organ dysfunction status: unspecified Sepsis type: sepsis due to unspecified organism Leukocytosis D72.829 Anticoagulated on Coumadin Z79.01 Urinary retention R33.9
[2019-12-18] MEDS: OLANZapine 5 mg TABLET PO (09:00)
[2019-12-18] MEDS: donepezil 5 MG Tablet PO (09:00)
[2019-12-18] MEDS: levothyroxine 112 mcg Tablet PO (09:00)
[2019-12-18 14:30] LABS: Coronavirus Lab Test PTC NOT DETECTED
[2019-12-18] MEDS: warfarin 2 mg Tablet PO (14:46)
--- NOTE | 2019-12-18 15:01 | PC.NURSE ---
Received a call from the warehouse material handler at this time that patient's COVIID test was negative.
--- NOTE | 2019-12-18 15:08 | PC.NURSE ---
Nayeli Baldwin warehouse associate at [facility] notified that patient's COVIID test was negative.
[2019-12-19] VITALS (12 sets, daily range): BP systolic 93–121; BP diastolic 58–75; PULSE 86–96; RESP 18–24; TEMP 36.9–37.8; O2SAT 85–94
[2019-12-19] MEDS: piperacillin-tazobactam 3.375 GM in sodium chloride 0.9% (plus) 50 ML IV (03:57)
[2019-12-19] MEDS: acetaminophen 325 mg Tablet 650 MG PO (05:03)
[2019-12-19 05:31] LABS: Basophils % 0.4 %; Eosinophils # 0.1 10^3/uL (0.0-0.8); Eosinophils % 1.3 %; Hematocrit 36.3 % (42.0-52.0); Hemoglobin 11.4 g/dL (11.7-16.6); Lymphocytes # 0.5 10^3/uL (0.8-4.8); Mean Corpuscular HGB Conc 31.4 g/dL (30.0-36.0); Mean Corpuscular Hemoglobin 32.8 pg (28.0-34.0); Mean Corpuscular Volume 104.3 fL (80-94); Mean Platelet Volume 10.5 fL (7.4-10.4); Monocytes # 0.4 10^3/uL (0.2-0.9); Monocytes % 5.1 %; Neutrophils # 7.2 10^3/uL (1.8-7.7); Neutrophils % 86.7 %; Nucleated Red Blood Cells % 0 %; Platelet Count 102 10^3/cmm (130-400); Red Blood Count 3.48 10^6/uL (4.1-5.3); Red Cell Distribution Width 14.5 % (12.1-15.1); White Blood Count 8.4 10^3/uL (4.0-10.0)
[2019-12-19 05:34] LABS: INR 2.15 (0.8-1.2)
--- NOTE | 2019-12-19 05:39 | PC.NURSE ---
Gave report to Kelsi LUNA on Med surg floor.
[2019-12-19 05:52] LABS: Alanine Aminotransferase 14 U/L (0-41); Albumin Level 2.9 g/dL (3.5-5.2); Alkaline Phosphatase 66 IU/L (40-130); Anion Gap 10.5 (5-19); Aspartate Amino Transferase 23 U/L (0-40); Blood Urea Nitrogen 9 mg/dL (6-20); Calcium 8.2 mg/dL (8.5-10.5); Carbon Dioxide 30 mmol/L (22-29); Chloride 105 mmol/L (98-107); Globulin 3.2 g/dL (1.3-4.6); Glomerular Filtration Rate 86.7 mL/min (90-130); Glucose 92 mg/dL (65-115); Osmolality Calculated 288 mOsm/kg (285-295); Potassium 4.5 mmol/L (3.5-5.1); Sodium 141 mmol/L (136-145); Total Bilirubin 0.6 mg/dL (0.15-1.2); Total Protein 6.1 g/dL (6.6-8.7)
[2019-12-19] MEDS: donepezil 5 MG Tablet PO (08:50)
[2019-12-19] MEDS: OLANZapine 5 mg TABLET PO (08:50)
[2019-12-19] MEDS: levothyroxine 112 mcg Tablet PO (08:50)
--- NOTE | 2019-12-19 09:28 | FL_ITS ---
WS: [id number] FL barium swallow modifd [id number] REASON FOR EXAM: Oral dysphagia FLUOROSCOPY TIME: 2 minutes FINDINGS: Fluoroscopy was performed for speech therapy. No definite deformities were seen. FL/FL barium swallow modifd [id number] IMPRESSION: Fluoroscopy performed for speech therapy please see their workup for details.
--- NOTE | 2019-12-19 14:47 | P.DS_ITS ---
Discharge Providers Date of Admission: 12/17/19 15:28 Date of Discharge: December 19, 2019 Attending Provider at Admission: Ang Hunter MD Attending Provider at Discharge: Geovanni Osborn Primary Care Provider: Jimmy Gomez MD Diagnoses at Discharge Discharge Diagnosis (1) Pneumonia: Status: Acute (2) Sepsis: Status: Acute Qualifiers: Sepsis acute organ dysfunction status: unspecified Sepsis type: sepsis due to unspecified organism Qualified Code(s): A41.9 - Sepsis, unspecified organism (3) Leukocytosis: Status: Acute (4) Anticoagulated on Coumadin: Status: Acute (5) Urinary retention: Status: Acute Reason for Visit Reason for Visit: fever/poss blood clot Hospital Course Hospital Course: Pleasant 59-year-old gentleman with Down syndrome, history of DVT, on chronic anticoagulation with warfarin, and other medical conditions, was admitted for assessment management after presenting with worsening weakness in the 2 preceding days, some cough, fever, lethargy, requiring some oxygen on presentation, noted to be in sepsis with leukocytosis, fever, mental status changes, hypotension on presentation. With pneumonia noted on imaging, so was started on Zosyn. Attempts to obtain urine studies were unsuccessful, with noted urinary retention, inability to place Das catheter. He responded well to fluid boluses and blood pressure improved. Given his symptoms also was tested for COVID-19 which was negative. Warfarin was held for 1 day as he required assessment by urology, unfortunately again with inability to find the true lumen despite fiber scopic evaluation, with finding of multiple false lumens, with noted trauma, possibly from attempts at Das placement earlier. Due to retention, suprapubic catheter had to be placed, and will be maintained at this time, with repeat follow-up with urology in office in about 1 month for consideration of exchange to larger size, and subsequently consideration of ad ditional reevaluation. CT abdomen pelvis performed on admission did not show findings concerning for mass, was noted to have circumferential bladder thickening, although urine studies once could be obtained were not suggestive of UTI. Perhaps secondary to prior infections, alternatively perhaps secondary to recurrent obstruction episodes. Noted some dilation of left renal pelvis. Is abscess quickly resolved. He was noted to have some coughing with food and drink, and per discussion with living facility unfortunately has been overall declining in terms of functional capacity, requiring assistance with walking over the last several weeks to months, as well as more frequent episodes of cough with food, requiring close supervision during eating. He was assessed by speech therapy here with finding of risk of aspiration, and subsequently noted penetration with all consistencies of diet but no aspiration on modified barium swallow evaluation, with recommendation for continuation of pur?ed diet with nectar thick liquids. As per discussion with his legal guardian, unfortunately given overall functional decline, he is at risk of recurrence of further aspiration episodes. Current episode of pneumonia has been improving well. Sepsis resolved. He has been comfortable, not in any distress, not short of breath, and has weaned down to room air on oxygen requirement at rest, although on home evaluation does still need 2 L by nasal cannula. Please continue close supervision with very strict aspiration precautions. His warfarin has been resumed, please continue regular INR monitoring. Latest INR today therapeutic at 2.15. Physical Exam Const: COMMON NORMALS: no acute distress; negative for patient oriented x3 GENERAL APPEARANCE: comfortable ORIENTATION/CONSCIOUSNESS: Yes Other orientation findings (Noncommunicative, which is baseline.) HENMT: COMMON NORMALS: oropharynx normal Neck/C-Spine: COMMON NORMALS: no JVD (Although difficult to examine neck) Resp: COMMON NORMALS: normal respiratory effort and clear to auscultation bilaterally AUSCULTATION: clear to auscultation bilaterally Cardio: COMMON NORMALS: no JVD (Although difficult to examine neck), regular rhythm, S1 normal heart sound present, S2 normal heart sound present and No murmurs present (Cardio) RHYTHM: regular rhythm HEART SOUNDS: S1 normal heart sound present and S2 normal heart sound present GI: COMMON NORMALS: Normal to inspection, nondistended, normoactive bowel sounds present, Soft to palpation and non-tender PALPATION: Yes Soft to palpation Extremity: COMMON NORMALS: no joint enlargement and no pedal edema Neuro: COMMON NORMALS: moves all extremities; negative for patient oriented x3 Skin: COMMON NORMALS: no rashes or lesions noted GENERAL SKIN EXAM: no rashes or lesions noted Urinary Catheter Management^: Suprapubic: Cath Placed During This Visit: yes Reason for Continuing Indwelling Catheter: Acute Urinary Retention or Obstruction Urinary Catheter Date of Insertion: 12/17/19 Urinary Catheter Time of Insertion: 21:48 Discharge Data Data Completed and Pending: Completed Studies During Hospitalization Category Date Time Status CT abdomen pelvis w con* [id number] Urge nt Cat Scan 12/17/19 15:06 Completed Modified barium s wallow [FL barium swallow modifd 742 30 Exams 12/19/19 09:28 Completed ] Routine XR chest 1V des ble [id number] Stat Exams 12/18/19 02:39 Completed XR chest 1V des ble [id number] Urgent Exams 12/17/19 12:07 [place] [id number] Urgent Ultrasound 12/17/19 12:10 Completed Pending at discharge Category Date Time Status Blood Culture Sta t Lab 12/17/19 12:10 Results Complete Blood Co unt w/Auto AM LABS Lab 12/20/19 04:00 Ordered Comprehensive Met abolic Panel AM LA BS Lab 12/20/19 04:00 Ordered Urine Culture Sta t Lab 12/17/19 22:20 Results Labs from last 24 hours 12/19/19 12/19/19 12/19/19 04:30 04:30 04:30 WBC 8.4 RBC 3.48 L Hgb 11.4 L Hct 36.3 L MCV 104.3 H MCH 32.8 MCHC 31.4 RDW 14.5 Plt Count 102 L MPV 10.5 H Neut % (Auto) 86.7 Lymph % (Auto) 6.0 Gates % (Auto) 5.1 Eos % (Auto) 1.3 Baso % (Auto) 0.4 Neut # (Auto) 7.2 Lymph # (Auto) 0.5 L Gates # (Auto) 0.4 Eos # (Auto) 0.1 Baso # (Auto) 0.0 Nucleated RBC % (a uto) 0 Nucleated RBCs # 0.0 PT 24.80 H INR 2.15 H Sodium 141 Potassium 4.5 Chloride 105 Carbon Dioxide 30 H Anion Gap 10.5 BUN 9 Creatinine 0.9 GFR Calculation 86.7 L Glucose 92 Calculated Osmolal ity 288 Calcium 8.2 L Total Bilirubin 0.6 AST 23 ALT 14 Alkaline Phosphata se 66 Total Protein 6.1 L Albumin 2.9 L Globulin 3.2 Vitals: Last Vital Signs Temp 98.6 F 12/19/19 12:00 Pulse 87 12/19/19 12:00 Resp 22 H 12/19/19 14:09 BP 103/64 12/19/19 12:00 Pulse Ox 85 L 12/19/19 13:44 Discharge Plan Discharge Patient Disposition: Xfer LTC Condition: Stable Prescriptions: New Augmentin 875-125 mg tablet 1 tab PO BID Qty: 14 RF: 0 Continued loratadine 10 mg tablet 10 mg PO DAILY RF: 0 olanzapine [Zyprexa] 5 mg tablet 5 mg PO DAILY RF: 0 Advair HFA 230-21 mcg/actuation HFA aerosol inhaler 2 puff INHALATION BID RF: 0 fluticasone propion-salmeterol [Advair Diskus] 500-50 mcg/dose blister with device 1 inh INHALATION BID RF: 0 olanzapine [Zyprexa] 2.5 mg tablet 5 mg PO DAILY RF: 0 carbamide peroxide [Debrox] 6.5 % drops 5 drop EAR-BOTH DAILY RF: 0 warfarin [Coumadin] 2 mg tablet 2 mg PO .DAILY DIRECTED RF: 0 citalopram [Celexa] 40 mg tablet 40 mg PO DAILY RF: 0 donepezil [Aricept] 5 mg tablet 5 mg PO DAILY RF: 0 dextromethorphan-guaifenesin [Adult Robitussin Peak Cold DM] 10-100 mg/5 mL liquid 10 ml PO Q4H PRN (Reason: COUGH/CONGESTION) RF: 0 bismuth subsalicylate 525 mg/15 mL suspension 525 mg PO Q30M PRN (Reason: DIARRHEA/STOMACH RELIEF) RF: 0 alum-mag hydroxide-simeth [Mylanta Maximum Strength] 400-400-40 mg/5 mL suspension 5 ml PO QID PRN (Reason: UPSET STOMACH/GAS RELIEF) RF: 0 magnesium hydroxide [Milk Of Magnesia Concentrated] 2,400 mg/10 mL suspension 5 ml PO DAILY PRN (Reason: Constipation) RF: 0 acetaminophen [Tylenol] 325 mg tablet 650 mg PO QID PRN (Reason: Pain) RF: 0 levothyroxine 112 mcg capsule 112 mcg PO DAILY Qty: 30 RF: 1 (DME) Compact Space Chamber Spacer See Rx Instructions .ROUTE .MEDSUPPLY Qty: 1 RF: 0 ketoconazole 2 % Cream 1 applic TOPICAL BID RF: 0 Neosporin ([id number]) 3.5-400-5,000 ra-saon-ruah Ointment In Packet See Rx Instructions .ROUTE .COMPLEX RF: 0 Discharge Orders: Discharge Order (Routine); Ordered 12/19/19 Ordered By: Geovanni Osborn Other Ambulatory Orders: DME: Oxygen (Order) Location: None Selected Ordered By: Geovanni Osborn Referrals: Jimmy Gomez MD [Primary Care Provider] - 12/25/19 1:45 pm Kwaku Dozier MD [Physician] - 01/17/20 10:45 am (Suprapubic catheter, possible urethral stricture, bladder wall thickening ) Discharge Diet: As Directed Discharge Activity: Resume usual activity Patient Instructions: Amoxicillin/Clavulanate Potassium (By mouth), Viral Pneumonia (DC), How to Care for Your Suprapubic Catheter (DC) Activity Restrictions/Additional Instructions: Strict aspiration precautions. Pur?ed diet, nectar thick liquids. Continue speech therapy follow-up. Continue catheter care. Maintain suprapubic catheter in place. Follow-up with urology in 1 month. With regards to new catheter: Shower and sponge bath are okay. Avoid soaking the area. 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
== END 2019-12-19 17:00 | DRG 871 ==
LOC: ER 14:49 → ICU 15:38 → MEDSURG 12-19 05:52
PROVIDERS: Family Medicine; Urology; Admitting Provider Internal Medicine; Emergency Provider Internal Medicine; Family Provider Internal Medicine; PCP Internal Medicine; Visit Provider Internal Medicine
PROC: 0WJR8ZZ Inspection of Genitourinary Tract, Via Natural or Artificial Opening Endoscopic Approach (ICD-10-PCS; CPT 51102; 2019-12-17 20:30)
DX: A41.9 Sepsis, unspecified organism (principal); J18.9 Pneumonia, unspecified organism; Q90.9 Down syndrome, unspecified; Z79.01 Long term (current) use of anticoagulants; F31.9 Bipolar disorder, unspecified; Z86.718 Personal history of other venous thrombosis and embolism; E03.9 Hypothyroidism, unspecified; R33.9 Retention of urine, unspecified
CPT/HCPCS: 12345; 36415; 51701; 51798; 71045; 74177; 74230; 76000; 80053; 81001; 83605; 83735; 83880; 84145; 84443; 84484; 85025; 85610; 87040; 87086; 87635; 92610; 92611; 93005; 93970; 94760; 96375; 99283; J0330; J1940; J2001; J2543; J2704; J2710; J3010; J3490; J7030; J7040; Q9967

== ENCOUNTER 2019-12-22 09:05 | Emergency (ER) | payer MEDICARE, MEDICAID, SELFPAY ==
[2019-12-22 09:15] VITALS: BP 121/58; PULSE 71; RESP 18; TEMP 36.6; O2SAT 95; BMI 30.6
--- NOTE | 2019-12-22 09:26 | ED_ITS ---
HPI - Male Genitourinary General: Chief complaint: Urogenital-Male Stated complaint: CATH ISSUE Time Seen by Provider: 12/22/19 09:15 Source: patient Mode of arrival: ambulatory Limitations: no limitations History of Present Illness: HPI Narrative: Patient was brought in due to continued urination through the penis. Patient has a suprapubic catheter intact but is not draining large amounts of fluid. Patient appears well. Patient appears in no pain. Patient was recently in the hospital for pneumonia and was noted to have urinary retention and had a suprapubic catheter put in place. Patient was noted to have a really diseased prostate and multiple false openings in the prostate which led to the suprapubic catheter placement. There is clear urine in the catheter and bag, caregiver was prompted to bring patient in due to urine output from the penis. Review of Systems General: Reports: 10 or more systems reviewed and unremarkable except in HPI and below : Reports: other (Suprapubic cath dysfunction) [facility] ED PFSH: Medical History (Updated 12/22/19 @ 10:28 by ELZBIETA Angulo) Alzheimers disease Bipolar 1 disorder Chronic anticoagulation DVT (deep venous thrombosis) Hypothyroidism, unspecified Pathological dislocation of both shoulder joints Trisomy 21 Social History Smoking and tobacco status: never smoked Alcohol intake: never Physical Exam Const: COMMON NORMALS: no acute distress and well nourished GENERAL APPEARANCE: cooperative HENMT: COMMON NORMALS: normocephalic and Normal external nose present HEAD & SCALP: normal to inspection and normocephalic NOSE: Normal external nose present Eye: GENERAL EYE: appearance normal, both eyes and all related structures Neck/C-Spine: COMMON NORMALS: full ROM Lymph: LYMPHATIC: no lymphadenopathy noted Chest: COMMONS NORMALS: normal inspection of the chest Resp: COMMON NORMALS: normal respiratory effort Cardio: COMMON NORMALS: regular rate and regular rhythm RATE: regular rate RHYTHM: regular rhythm GI: COMMON NORMALS: non-tender : COMMON NORMALS: Yes no CVA tenderness BLADDER/KIDNEY EXAM: Yes no CVA tenderness MALE GROIN/PERINEUM EXAM: Yes other (Suprapubic catheter in place, sutures are intact holding catheter in place, no redness or induration is noted of the tissues.) Back/Pelvis: COMMON NORMALS: no CVA tenderness and thoracic and lumbar spine normal to inspection Extremity: COMMON NORMALS: normal to inspection Neuro: COMMON NORMALS: moves all extremities Psych: COMMON NORMALS: mental status grossly normal and cooperative Skin: COMMON NORMALS: no rashes or lesions noted GENERAL SKIN EXAM: no rashes or lesions noted Course Vital Signs: Vital signs: Vital Signs Temperature 98 F 12/22/19 09:15 Pulse Rate 71 12/22/19 09:15 Respiratory Rate 18 12/22/19 09:15 Blood Pressure 121/58 12/22/19 09:15 Pulse Oximetry 95 12/22/19 09:15 MDM - Male MDM Narrative: Medical decision making narrative: Patient was brought in for concerns of clogged suprapubic urinary catheter. On exam patient's abdomen soft nontender. Suprapubic catheter site was healthy looking without any signs of infection. Vital signs were normal without fever. Differential diagnosis includes urinary tract infection, hematuria, dysfunction of the suprapubic catheter. Catheter was flushed without resistance and with good return. Reviewed with caregiver recommendations for flushing catheter as needed. Recommend monitoring for fever. Return to the ER as needed. Continue with routine care as directed. Follow-up with urology as scheduled. Discharge Plan Discharge Patient Disposition: Home, Self-Care Clinical Impression: Suprapubic catheter dysfunction Qualifiers: Encounter type: initial encounter Qualified Code(s): T83.010A - Breakdown (mechanical) of cystostomy catheter, initial encounter Condition: Stable Prescriptions: No Action loratadine 10 mg tablet 10 mg PO DAILY RF: 0 olanzapine [Zyprexa] 5 mg tablet 5 mg PO DAILY RF: 0 Advair HFA 230-21 mcg/actuation HFA aerosol inhaler 2 puff INHALATION BID RF: 0 olanzapine [Zyprexa] 2.5 mg tablet 5 mg PO DAILY RF: 0 carbamide peroxide [Debrox] 6.5 % drops 5 drop EAR-BOTH DAILY RF: 0 warfarin [Coumadin] 2 mg tablet 2 mg PO .DAILY DIRECTED RF: 0 citalopram [Celexa] 40 mg tablet 40 mg PO DAILY RF: 0 donepezil [Aricept] 5 mg tablet 5 mg PO DAILY RF: 0 dextromethorphan-guaifenesin [Adult Robitussin Peak Cold DM] 10-100 mg/5 mL liquid 10 ml PO Q4H PRN (Reason: COUGH/CONGESTION) RF: 0 bismuth subsalicylate 525 mg/15 mL suspension 525 mg PO Q30M PRN (Reason: DIARRHEA/STOMACH RELIEF) RF: 0 alum-mag hydroxide-simeth [Mylanta Maximum Strength] 400-400-40 mg/5 mL suspension 5 ml PO QID PRN (Reason: UPSET STOMACH/GAS RELIEF) RF: 0 magnesium hydroxide [Milk Of Magnesia Concentrated] 2,400 mg/10 mL suspension 5 ml PO DAILY PRN (Reason: Constipation) RF: 0 acetaminophen [Tylenol] 325 mg tablet 650 mg PO QID PRN (Reason: Pain) RF: 0 levothyroxine 112 mcg capsule 112 mcg PO DAILY Qty: 30 RF: 1 (DME) Compact Space Chamber Spacer See Rx Instructions .ROUTE .MEDSUPPLY Qty: 1 RF: 0 ketoconazole 2 % Cream 1 applic TOPICAL BID RF: 0 Neosporin ([id number]-[id number]) 3.5-400-5,000 tc-qvhk-ehoq Ointment In Packet See Rx Instructions .ROUTE .COMPLEX RF: 0 Augmentin 875-125 mg tablet 1 tab PO BID Qty: 14 RF: 0 Referrals: Jimmy Gomez MD [Primary Care Provider] - Discharge Diet: Usual diet Discharge Activity: Resume usual activity Activity Restrictions/Additional Instructions: Encourage plenty of fluids. Monitor for fever. He has tolerated. Follow-up with primary care in 1 week. Follow-up with urology as scheduled. Return to the ER for fever or new concerns. 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
[2019-12-22 11:15] VITALS: BP 114/78; PULSE 74; RESP 18; O2SAT 97
== END 2019-12-22 11:15 | disposition home or self-care (01) ==
PROVIDERS: Emergency Provider Nurse Practitioner Family; Family Provider Internal Medicine; PCP Internal Medicine
DX: T83.010A Breakdown (mechanical) of cystostomy catheter, initial encounter (principal); Z79.01 Long term (current) use of anticoagulants; G30.9 Alzheimer's disease, unspecified; F02.80 Dementia in other diseases classified elsewhere, unspecified severity, without behavioral disturbance, psychotic disturbance, mood disturbance, and anxiety
CPT/HCPCS: 12345; 99281

== ENCOUNTER 2019-12-22 21:15 | Emergency (ER) | payer MEDICARE, MEDICAID, SELFPAY ==
[2019-12-22 21:33] VITALS: BP 102/64; PULSE 88; RESP 18; TEMP 36.2; O2SAT 98
--- NOTE | 2019-12-22 21:44 | ED_ITS ---
HPI - Male Genitourinary General: Chief complaint: Urogenital-Male Stated complaint: catheter issues Time Seen by Provider: 12/22/19 21:36 History of Present Illness: HPI Narrative: Patient is a 59-year-old male who comes to the ED with suprapubic catheter issues. Patient's care worker is present. Patient was just here earlier today for same complaint. Suprapubic catheter was placed several days ago on 12/16 because patient was unable to urinate. Today supra pubic catheter was not draining and he was urinating out of his penis. Here in the ED earlier they flushed it and suprapubic catheter began flowing again and he was discharged. Patient's care worker said that catheter was flowing after was flushed but then when they got back home no urine has not flowed into bag since. After discharge from ED earlier today patient was urinating out of his penis instead of into catheter.. Patient's care worker was recommending that we provide some extra flushes for the care facility to flush catheter themselves to help address issue. Patient is currently on an antibiotic and has a follow-up appointment with Dr. Gomez on Wednesday and Dr. Dozier later in the week. Associated symptoms: Deny dysuria, hematuria, nausea or vomiting Review of Systems Const: Denies: fever(s), chills or fatigue Eyes: Denies: change in vision or eye discomfort ENMT: Denies: throat pain, odynophagia, nasal discharge or nasal congestion Card: Denies: chest pain, palpitations, edema, swelling of feet/ankles, dyspnea on exertion or orthopnea Resp: Denies: dyspnea, productive cough or non-productive cough GI: Denies: abdominal pain, nausea, vomiting, diarrhea, constipation or hematochezia : Reports: other (suprapubic cath not flowing); Denies: flank pain, difficulty urinating, dysuria or hematuria Musc: Denies: neck pain, back pain or extremity swelling Skin/Breast: Denies: rash or new lesions Neuro: Denies: headache(s), numbness in extremities or weakness in extremities [facility] ED PFSH: Medical History Alzheimers disease Bipolar 1 disorder Chronic anticoagulation DVT (deep venous thrombosis) Hypothyroidism, unspecified Pathological dislocation of both shoulder joints Trisomy 21 Social History Smoking and tobacco status: never smoked Alcohol intake: never Physical Exam Const: COMMON NORMALS: no acute distress, patient oriented x3 and alert EXAM LIMITATIONS: other limitations (Patient has trisomy 21 and was in a wheelchair.) HENMT: COMMON NORMALS: normocephalic HEAD & SCALP: normocephalic MOUTH: Normal oral and palatal mucosa present THROAT: posterior oropharynx normal and uvula midline Neck/C-Spine: COMMON NORMALS: supple GENERAL: Yes normal visual inspection Resp: COMMON NORMALS: normal respiratory effort, No retractions, No use of accessory muscles and clear to auscultation bilaterally AUSCULTATION: clear to auscultation bilaterally Cardio: COMMON NORMALS: regular rate, regular rhythm, S1 normal heart sound present, S2 normal heart sound present, No gallops present (Cardio), No clicks present (Cardio), No murmurs present (Cardio) and Peripheral pulses 2+ throughout RATE: regular rate RHYTHM: regular rhythm HEART SOUNDS: S1 normal heart sound present and S2 normal heart sound present PERIPHERAL PULSES: Peripheral pulses 2+ throughout GI: COMMON NORMALS: Normal to inspection, nondistended, normoactive bowel sounds present, Soft to palpation, non-tender and no masses PALPATION: Yes Soft to palpation : COMMON NORMALS: Yes no CVA tenderness BLADDER/KIDNEY EXAM: Yes bladder normal to palpation and Yes no CVA tenderness OTHER: Catheter site shows no signs of infection or drainage around catheter. Back/Pelvis: COMMON NORMALS: no CVA tenderness Neuro: COMMON NORMALS: patient oriented x3 SENSORIUM/ORIENTATION: Yes alert Skin: GENERAL SKIN EXAM: dry skin Course ED course: Nurse irrigated catheter with 60 mL of fluid. No urine or fluid is drained into bag yet. Nurse performed a bladder scan and it read 62 mL of fluid. Patient virtual classroom manager did say that he patient has been voiding out of his penis and not through catheter throughout the day. Vital Signs: Vital signs: Vital Signs Temperature 97.2 F L 12/22/19 21:33 Pulse Rate 88 12/22/19 21:33 Respiratory Rate 18 12/22/19 21:33 Blood Pressure 102/64 12/22/19 21:33 Pulse Oximetry 98 12/22/19 21:33 MDM - Male MDM Narrative: Medical decision making narrative: Patient is a 59-year-old male comes to the ED with suprapubic catheter complaint. Patient was seen here in the ED earlier today for same complaint. Patient had a suprapubic catheter placed approximately 5 days ago due to urinary retention. Patient's virtual classroom manager says that he has been usually voiding out of his penis and not into the suprapubic catheter bag today. CBC and CMP were unremarkable. Bladder scan was also performed after nurse irrigated bladder with 60 mL's of fluid and bladder scan showed 62 mL bladder. Patient was discharged and Patient's virtual classroom manager was given some supplies to irrigate and flush suprapubic catheter while at home. Patient already has an Dr. Gomez appointment early next week and also Dr. Dozier appointment later in the week. Patient's virtual classroom manager understood and agreed with plan. Lab Data: Attestation: I reviewed the patient's lab results. Labs: Lab Results 12/22/19 12/22/19 Range/Units 23:58 23:58 WBC 3.8 L (4.0-10.0) 10^3/ uL RBC 3.64 L (4.1-5.3) 10^6/u L Hgb 11.5 L (11.7-16.6) g/dL Hct 37.5 L (42.0-52.0) % MCV 103.0 H (80-94) fL MCH 31.6 (28.0-34.0) pg MCHC 30.7 (30.0-36.0) g/dL RDW 14.0 (12.1-15.1) % Plt Count 101 L (130-400) 10^3/c mm MPV 11.3 H (7.4-10.4) fL Neut % (Auto) 58.7 % Lymph % (Auto) 20.5 % [place] % (Auto) 13.3 % Eos % (Auto) 5.1 % Baso % (Auto) 1.3 % Neut # (Auto) 2.2 (1.8-7.7) 10^3/u L Lymph # (Auto) 0.8 (0.8-4.8) 10^3/u L [place] # (Auto) 0.5 (0.2-0.9) 10^3/u L Eos # (Auto) 0.2 (0.0-0.8) 10^3/u L Baso # (Auto) 0.1 (0.0-0.1) 10^3/u L Nucleated RBC % (a uto) 0 % Nucleated RBCs # 0.0 /100WBC Sodium 144 (136-145) mmol/L Potassium 4.4 (3.5-5.1) mmol/L Chloride 103 (98-107) mmol/L Carbon Dioxide 32 H (22-29) mmol/L Anion Gap 13.4 (5-19) BUN 11 (6-20) mg/dL Creatinine 1.0 (0.7-1.2) mg/dL GFR Calculation 76.7 L (90-130) mL/min Glucose 89 (65-115) mg/dL Calculated Osmolal ity 294 (285-295) mOsm/k g Calcium 8.5 (8.5-10.5) mg/dL Total Bilirubin 0.3 (0.15-1.2) mg/dL AST 24 (0-40) U/L ALT 15 (0-41) U/L Alkaline Phosphata se 85 (40-130) IU/L Total Protein 6.4 L (6.6-8.7) g/dL Albumin 3.0 L (3.5-5.2) g/dL Globulin 3.4 (1.3-4.6) g/dL Discharge Plan Discharge Patient Disposition: Home, Self-Care Clinical Impression: Suprapubic catheter dysfunction Qualifiers: Encounter type: subsequent encounter Qualified Code(s): T83.010D - Breakdown (mechanical) of cystostomy catheter, subsequent encounter Condition: Stable Prescriptions: No Action loratadine 10 mg tablet 10 mg PO DAILY RF: 0 olanzapine [Zyprexa] 5 mg tablet 5 mg PO DAILY RF: 0 Advair HFA 230-21 mcg/actuation HFA aerosol inhaler 2 puff INHALATION BID RF: 0 olanzapine [Zyprexa] 2.5 mg tablet 5 mg PO DAILY RF: 0 carbamide peroxide [Debrox] 6.5 % drops 5 drop EAR-BOTH DAILY RF: 0 warfarin [Coumadin] 2 mg tablet 2 mg PO .DAILY DIRECTED RF: 0 citalopram [Celexa] 40 mg tablet 40 mg PO DAILY RF: 0 donepezil [Aricept] 5 mg tablet 5 mg PO DAILY RF: 0 dextromethorphan-guaifenesin [Adult Robitussin Peak Cold DM] 10-100 mg/5 mL liquid 10 ml PO Q4H PRN (Reason: COUGH/CONGESTION) RF: 0 bismuth subsalicylate 525 mg/15 mL suspension 525 mg PO Q30M PRN (Reason: DIARRHEA/STOMACH RELIEF) RF: 0 alum-mag hydroxide-simeth [Mylanta Maximum Strength] 400-400-40 mg/5 mL suspension 5 ml PO QID PRN (Reason: UPSET STOMACH/GAS RELIEF) RF: 0 magnesium hydroxide [Milk Of Magnesia Concentrated] 2,400 mg/10 mL suspension 5 ml PO DAILY PRN (Reason: Constipation) RF: 0 acetaminophen [Tylenol] 325 mg tablet 650 mg PO QID PRN (Reason: Pain) RF: 0 levothyroxine 112 mcg capsule 112 mcg PO DAILY Qty: 30 RF: 1 (DME) Compact Space Chamber Spacer See Rx Instructions .ROUTE .MEDSUPPLY Qty: 1 RF: 0 ketoconazole 2 % Cream 1 applic TOPICAL BID RF: 0 Neosporin (dfv-kqd-ksoyg) 3.5-400-5,000 [id number] Ointment In Packet See Rx Instructions .ROUTE .COMPLEX RF: 0 Augmentin 875-125 mg tablet 1 tab PO BID Qty: 14 RF: 0 Discharge Orders: Discharge Order (Routine); Ordered 12/23/19 Ordered By: Teto Mcdonnell Referrals: Jimmy Gomez MD [Primary Care Provider] - Discharge Diet: Regular Discharge Activity: Resume usual activity Patient Instructions: How to Care for Your Suprapubic Catheter (ED) Activity Restrictions/Additional Instructions: Go to your previously scheduled appointment with Dr. Gomez early next week for reevaluation. Also go to your scheduled appoint with Dr. Dozier's upcoming in the next week. Nurse will send you home with some catheter flushing and irrigating equipment and supplies. Patient can return to ED for any worsening symptoms. Coding Level of Care Code ED Music Supervisor for Gio Fwd Exam Comprehensive
[2019-12-23 00:23] LABS: Basophils # 0.1 10^3/uL (0.0-0.1); Basophils % 1.3 %; Eosinophils # 0.2 10^3/uL (0.0-0.8); Eosinophils % 5.1 %; Hematocrit 37.5 % (42.0-52.0); Hemoglobin 11.5 g/dL (11.7-16.6); Lymphocytes # 0.8 10^3/uL (0.8-4.8); Lymphocytes % 20.5 %; Mean Corpuscular HGB Conc 30.7 g/dL (30.0-36.0); Mean Corpuscular Hemoglobin 31.6 pg (28.0-34.0); Mean Platelet Volume 11.3 fL (7.4-10.4); Monocytes # 0.5 10^3/uL (0.2-0.9); Monocytes % 13.3 %; Neutrophils # 2.2 10^3/uL (1.8-7.7); Neutrophils % 58.7 %; Nucleated Red Blood Cells % 0 %; Platelet Count 101 10^3/cmm (130-400); Red Blood Count 3.64 10^6/uL (4.1-5.3); White Blood Count 3.8 10^3/uL (4.0-10.0)
[2019-12-23 00:44] LABS: Alanine Aminotransferase 15 U/L (0-41); Alkaline Phosphatase 85 IU/L (40-130); Anion Gap 13.4 (5-19); Aspartate Amino Transferase 24 U/L (0-40); Blood Urea Nitrogen 11 mg/dL (6-20); Calcium 8.5 mg/dL (8.5-10.5); Carbon Dioxide 32 mmol/L (22-29); Chloride 103 mmol/L (98-107); Globulin 3.4 g/dL (1.3-4.6); Glomerular Filtration Rate 76.7 mL/min (90-130); Glucose 89 mg/dL (65-115); Osmolality Calculated 294 mOsm/kg (285-295); Potassium 4.4 mmol/L (3.5-5.1); Sodium 144 mmol/L (136-145); Total Bilirubin 0.3 mg/dL (0.15-1.2); Total Protein 6.4 g/dL (6.6-8.7)
--- NOTE | 2019-12-23 02:13 | PC.NURSE ---
No urine output observed via navin pubic catheter. However, Pt. voided large amount into brief.
[2019-12-23 02:14] VITALS: BP 125/84; PULSE 99; RESP 16; O2SAT 95
== END 2019-12-23 02:16 | disposition home or self-care (01) ==
PROVIDERS: Emergency Provider Physician Assistant; PCP Internal Medicine
DX: T83.010A Breakdown (mechanical) of cystostomy catheter, initial encounter (principal); Z79.01 Long term (current) use of anticoagulants; G30.9 Alzheimer's disease, unspecified; F02.80 Dementia in other diseases classified elsewhere, unspecified severity, without behavioral disturbance, psychotic disturbance, mood disturbance, and anxiety
CPT/HCPCS: 12345; 51798; 80053; 85025; 99281; 99283

== ENCOUNTER 2020-04-23 15:06 | Emergency (ER) | payer MEDICARE, MEDICAID, SELFPAY ==
[2020-04-23 15:49] VITALS: BP 120/65; PULSE 76; RESP 15; TEMP 36.8; O2SAT 94; BMI 30.4
--- NOTE | 2020-04-23 17:11 | XRR_ITS ---
PROCEDURE INFORMATION: Exam: XR Chest, 1 View Exam date and time: 04/23/2020 6:39 PM Age: 59 years old Clinical indication: Shortness of breath; Patient HX: Low 02, unable to obtain history; Additional info: SOB TECHNIQUE: Imaging protocol: XR of the chest Views: 1 view. COMPARISON: CR XR chest 1V portable [id number] 12/18/2019 2:59 AM FINDINGS: Limitations: The study is technically limited by breathing motion artifact. Lungs: There is bilateral bronchial wall thickening and haziness. No septal line formation or fissural thickening. No focal peripheral lung consolidation, air bronchogram formation, or silhouette sign. Pleural space: No pleural effusion or pneumothorax. Heart/Mediastinum: The cardiac silhouette is not enlarged. The mediastinal contours are normal. Bones/joints: S-shaped curvature of the thoracolumbar junction. XR/XR chest 1V portable [id number] IMPRESSION: Bronchial inflammation/edema.
--- NOTE | 2020-04-23 17:38 | ECG_ITS ---
[facility] Test Date: 2020-04-23 Pat Name: Nicanor Hung Department: Room: Gender: Male Clinical Appeals Auditor: : [id number] Requested By: Yelena Medina Order Number: [id number] Terrell MD: Giovanna Carrillo M.D. Measurements Intervals [place] Rate: 71 P: HI: -1 QRS: 5 QRSD: 89 T: 30 QT: 399 QTc: 435 Interpretive Statements SINUS RHYTHM WITH HIGH GRADE AV BLOCK LOW QRS VOLTAGE IN PRECORDIAL LEADS [QRS DEFLECTION < 1.0 mV IN CHEST LEADS] PATTERN CONSISTENT WITH PULMONARY DISEASE CRITICAL TEST RESULT Compared to ECG 12/17/2019 17:01:55 No significant changes Electronically Signed On 04-23-2020 20:55:57 CDT by Giovanna Carrillo M.D. [id number]
--- NOTE | 2020-04-23 17:41 | ED_ITS ---
HPI - URI/Sore Throat General: Chief Complaint: Upper Respiratory Infection Stated Complaint: productive cough Time Seen by Provider: 04/23/20 17:16 History of Present Illness: HPI Narrative: This patient is a 59-year-old male with a history of Down syndrome. He has dementia. He has a history of fluid retention. He lives in a [facility]. 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 He has not been tested for COVID. He has not had fevers. He was brought in today because he did have an episode of desat at home. He does normally use oxygen and at times his sat runs around 90 even with the oxygen. Today he was off the oxygen for about 2 minutes and his saturations dropped into the 70s. Once back on the oxygen it came back up. Staff notes a rattling sound when he breathes. He also has been more weak and emotionally labile than normal. He is having increasing swelling and what seems to be pain in his right leg. He is nonverbal so it is difficult to elicit detailed history from him. He has a history of DVTs and has had clots in that right leg in the past. MD elicited complaint: cough Pertinent past history: other (Down syndrome) Onset (ago): day(s) (A few) Consistency: constant Severity: moderate Exacerbating factors: exertion Relieving factors: nothing Associated symptoms: Deny chills or fever(s) Review of Systems General: Reports: ROS unobtainable due to mental status (Limited review of systems per staff) Const: Reports: fatigue and malaise; Denies: fever(s) or chills ENMT: Denies: odynophagia Musc: Reports: extremity swelling PFSH ED PFSH: Medical History Alzheimers disease Bipolar 1 disorder Chronic anticoagulation DVT (deep venous thrombosis) Hypothyroidism, unspecified Hypoxemia Pathological dislocation of both shoulder joints Suprapubic catheter Traumatic injury of urethra Trisomy 21 Social History Smoking and tobacco status: never smoked Alcohol intake: never Housing: Assisted Living Facility Marital status: Single Current occupational status: disabled History of recent travel: No Physical Exam Const: COMMON NORMALS: alert GENERAL APPEARANCE: cooperative HENMT: HEAD & SCALP: normal to inspection FACE & SINUS: normal facial exam Eye: GENERAL EYE: appearance normal, both eyes and all related structures Neck/C-Spine: COMMON NORMALS: supple, no meningeal signs and no JVD Chest: COMMONS NORMALS: normal inspection of the chest Resp: EFFORT & INSPECTION: Yes tachypneic, Yes respiratory distress, Yes labored and Yes uses accessory muscles AUSCULTATION: rales and rhonchi Cardio: COMMON NORMALS: no JVD, regular rate, regular rhythm and No murmurs present (Cardio) RATE: regular rate RHYTHM: regular rhythm GI: COMMON NORMALS: Normal to inspection, nondistended, normoactive bowel sounds present, Soft to palpation and non-tender INSPECTION: Yes normal to inspection AUSCULTATION: Yes normoactive bowel sounds PALPATION: Yes Soft to palpation Back/Pelvis: COMMON NORMALS: thoracic and lumbar spine normal to inspection Extremity: COMMON NORMALS: normal to inspection NARRATIVE EXTREMITY EXAM: Some swelling of both legs, definitely greater on the right. Tender to palpation. Neuro: COMMON NORMALS: moves all extremities, no focal motor deficits and no sensory deficits noted SENSORIUM/ORIENTATION: Yes alert MENINGEAL SIGNS: Yes no meningeal signs Psych: COMMON NORMALS: cooperative and normal affect Skin: COMMON NORMALS: no rashes or lesions noted and turgor normal GENERAL SKIN EXAM: no rashes or lesions noted and turgor normal Course ED course: This patient's rapid COVID was negative however his labs and x-ray are still concerning to me that he could have COVID. CT of his chest suggests possible viral pneumonia picture but could also be due to a small amount of fluid. I do not think he needs any changes in his medications right now. They will continue to quarantine at his home. A quest swab was sent and should be back within the next few days. His INR is low and as he is had increased swelling in his right leg it is possible that he is having more symptoms there. He apparently had his INR checked as is the normal routine, earlier today, so I advised them just to follow-up with that to see if the dose needs to be adjust ed. Vital Signs: Vital signs: Vital Signs Temperature 98.2 F 04/23/20 15:49 Pulse Rate 74 04/23/20 21:51 Respiratory Rate 16 04/23/20 21:51 Blood Pressure 105/69 04/23/20 21:51 Pulse Oximetry 99 04/23/20 21:51 MDM - URI/Sore Throat 2 Lab Data: Labs: Lab Results 04/23/20 04/23/20 04/23/20 Range/Units 17:51 17:51 17:51 WBC 5.4 (4.0-10.0) 10^3/ uL RBC 3.89 L (4.1-5.3) 10^6/u L Hgb 12.1 (11.7-16.6) g/dL Hct 41.1 L (42.0-52.0) % MCV 105.7 H (80-94) fL MCH 31.1 (28.0-34.0) pg MCHC 29.4 L (30.0-36.0) g/dL RDW 15.2 H (12.1-15.1) % Plt Count 173 (130-400) 10^3/c mm MPV 10.6 H (7.4-10.4) fL Neut % (Auto) 75.3 % Lymph % (Auto) 12.5 % [facility] % (Auto) 8.1 % Eos % (Auto) 2.4 % Baso % (Auto) 1.1 % Neut # (Auto) 4.09 (1.8-7.7) 10^3/u L Lymph # (Auto) 0.7 L (0.8-4.8) 10^3/u L [facility] # (Auto) 0.4 (0.2-0.9) 10^3/u L Eos # (Auto) 0.1 (0.0-0.8) 10^3/u L Baso # (Auto) 0.1 (0.0-0.1) 10^3/u L Nucleated RBC % (a uto) 0 % Nucleated RBCs # 0.0 /100WBC PT 18.30 H (12.1-14.9) SECO NDS INR 1.47 H (0.8-1.2) Fibrinogen 675 H (174-498) mg/dL D-Dimer 2.68 H (0-0.59) ug/mIFE U Sodium 136 (136-145) mmol/L Potassium 4.1 (3.5-5.1) mmol/L Chloride 94 L (98-107) mmol/L Carbon Dioxide 34 H (22-29) mmol/L Anion Gap 12.1 (5-19) BUN 12 (6-20) mg/dL Creatinine 0.9 (0.7-1.2) mg/dL GFR Calculation 86.7 L (90-130) mL/min Glucose 85 (65-115) mg/dL Calculated Osmolal ity 281 L (285-295) mOsm/k g Lactate (0.5-2.2) mmol/L Calcium 8.6 (8.5-10.5) mg/dL Magnesium 2.3 (1.7-2.3) mg/dL Total Bilirubin 0.3 (0.15-1.2) mg/dL AST 20 (0-40) U/L ALT 11 (0-41) U/L Alkaline Phosphata se 89 (40-130) IU/L Creatine Kinase 103 (39-308) U/L Troponin T Gen 5 n g/L Troponin T Baselin e (0-15) ng/L Troponin T 120 [place] (0-15) ng/L Delta Troponin T (0-10) ABS# C-Reactive Protein 78.9 H (0.0-4.9) mg/L NT-Pro-B Natriuret Pep 314 H (0-125) pg/mL Total Protein 7.9 (6.6-8.7) g/dL Albumin 3.3 L (3.5-5.2) g/dL Globulin 4.6 (1.3-4.6) g/dL Procalcitonin 0.06 (0-0.5) ng/mL SARS-CoV-2 Ag (Rap id) (Negative) 04/23/20 04/23/20 04/23/20 Range/Units 17:51 17:51 17:51 WBC (4.0-10.0) 10^3/ uL RBC (4.1-5.3) 10^6/u L Hgb (11.7-16.6) g/dL Hct (42.0-52.0) % MCV (80-94) fL MCH (28.0-34.0) pg MCHC (30.0-36.0) g/dL RDW (12.1-15.1) % Plt Count (130-400) 10^3/c mm MPV (7.4-10.4) fL Neut % (Auto) % Lymph % (Auto) % [facility] % (Auto) % Eos % (Auto) % Baso % (Auto) % Neut # (Auto) (1.8-7.7) 10^3/u L Lymph # (Auto) (0.8-4.8) 10^3/u L [facility] # (Auto) (0.2-0.9) 10^3/u L Eos # (Auto) (0.0-0.8) 10^3/u L Baso # (Auto) (0.0-0.1) 10^3/u L Nucleated RBC % (a uto) % Nucleated RBCs # /100WBC PT (12.1-14.9) SECO NDS INR (0.8-1.2) Fibrinogen (174-498) mg/dL D-Dimer (0-0.59) ug/mIFE U Sodium (136-145) mmol/L Potassium (3.5-5.1) mmol/L Chloride (98-107) mmol/L Carbon Dioxide (22-29) mmol/L Anion Gap (5-19) BUN (6-20) mg/dL Creatinine (0.7-1.2) mg/dL GFR Calculation (90-130) mL/min Glucose (65-115) mg/dL Calculated Osmolal ity (285-295) mOsm/k g Lactate 0.9 (0.5-2.2) mmol/L Calcium (8.5-10.5) mg/dL Magnesium (1.7-2.3) mg/dL Total Bilirubin (0.15-1.2) mg/dL AST (0-40) U/L ALT (0-41) U/L Alkaline Phosphata se (40-130) IU/L Creatine Kinase (39-308) U/L Troponin T Gen 5 n g/L Cancelled Troponin T Baselin e 13 (0-15) ng/L Troponin T 120 [place] (0-15) ng/L Delta Troponin T (0-10) ABS# C-Reactive Protein (0.0-4.9) mg/L NT-Pro-B Natriuret Pep (0-125) pg/mL Total Protein (6.6-8.7) g/dL Albumin (3.5-5.2) g/dL Globulin (1.3-4.6) g/dL Procalcitonin (0-0.5) ng/mL SARS-CoV-2 Ag (Rap id) (Negative) 04/23/20 04/23/20 Range/Units 18:02 19:45 WBC (4.0-10.0) 10^3/ uL RBC (4.1-5.3) 10^6/u L Hgb (11.7-16.6) g/dL Hct (42.0-52.0) % MCV (80-94) fL MCH (28.0-34.0) pg MCHC (30.0-36.0) g/dL RDW (12.1-15.1) % Plt Count (130-400) 10^3/c mm MPV (7.4-10.4) fL Neut % (Auto) % Lymph % (Auto) % [facility] % (Auto) % Eos % (Auto) % Baso % (Auto) % Neut # (Auto) (1.8-7.7) 10^3/u L Lymph # (Auto) (0.8-4.8) 10^3/u L [facility] # (Auto) (0.2-0.9) 10^3/u L Eos # (Auto) (0.0-0.8) 10^3/u L Baso # (Auto) (0.0-0.1) 10^3/u L Nucleated RBC % (a uto) % Nucleated RBCs # /100WBC PT (12.1-14.9) SECO NDS INR (0.8-1.2) Fibrinogen (174-498) mg/dL D-Dimer (0-0.59) ug/mIFE U Sodium (136-145) mmol/L Potassium (3.5-5.1) mmol/L Chloride (98-107) mmol/L Carbon Dioxide (22-29) mmol/L Anion Gap (5-19) BUN (6-20) mg/dL Creatinine (0.7-1.2) mg/dL GFR Calculation (90-130) mL/min Glucose (65-115) mg/dL Calculated Osmolal ity (285-295) mOsm/k g Lactate (0.5-2.2) mmol/L Calcium (8.5-10.5) mg/dL Magnesium (1.7-2.3) mg/dL Total Bilirubin (0.15-1.2) mg/dL AST (0-40) U/L ALT (0-41) U/L Alkaline Phosphata se (40-130) IU/L Creatine Kinase (39-308) U/L Troponin T Gen 5 n g/L Troponin T Baselin e (0-15) ng/L Troponin T 120 [place] 13.37 (0-15) ng/L Delta Troponin T 0.37 (0-10) ABS# C-Reactive Protein (0.0-4.9) mg/L NT-Pro-B Natriuret Pep (0-125) pg/mL Total Protein (6.6-8.7) g/dL Albumin (3.5-5.2) g/dL Globulin (1.3-4.6) g/dL Procalcitonin (0-0.5) ng/mL SARS-CoV-2 Ag (Rap id) Negative (Negative) Discharge Plan Discharge Patient Disposition: Home Clinical Impression: Trisomy 21, Anticoagulated on Coumadin, Close exposure to 2019 novel c oronavirus Upper respiratory infection Qualifiers: URI type: unspecified viral URI Qualified Code(s): J06.9 - Acute upper respiratory infection, unspecified Condition: Stable Prescriptions: No Action olanzapine [Zyprexa] 5 mg tablet 5 mg PO DAILY RF: 0 carbamide peroxide [Debrox] 6.5 % drops 5 drop EAR-BOTH DAILY RF: 0 warfarin [Coumadin] 2 mg tablet 2 mg PO .DAILY DIRECTED RF: 0 citalopram [Celexa] 40 mg tablet 40 mg PO DAILY RF: 0 donepezil [Aricept] 5 mg tablet 5 mg PO DAILY RF: 0 dextromethorphan-guaifenesin [Adult Robitussin Peak Cold DM] 10-100 mg/5 mL liquid 10 ml PO Q4H PRN (Reason: COUGH/CONGESTION) RF: 0 bismuth subsalicylate 525 mg/15 mL suspension 525 mg PO Q30M PRN (Reason: DIARRHEA/STOMACH RELIEF) RF: 0 alum-mag hydroxide-simeth [Mylanta Maximum Strength] 400-400-40 mg/5 mL suspension 5 ml PO QID PRN (Reason: UPSET STOMACH/GAS RELIEF) RF: 0 magnesium hydroxide [Milk Of Magnesia Concentrated] 2,400 mg/10 mL suspension 5 ml PO DAILY PRN (Reason: Constipation) RF: 0 acetaminophen [Tylenol] 325 mg tablet 650 mg PO QID PRN (Reason: Pain) RF: 0 olanzapine [Zyprexa] 2.5 mg tablet 5 mg PO .prn RF: 0 albuterol sulfate 2.5 mg /3 mL (0.083 %) solution for nebulization 2.5 mg INHALATION Q6H RF: 0 furosemide [Lasix] 40 mg tablet 40 mg PO DAILY Qty: 90 RF: 3 loratadine [Claritin] 10 mg tablet 10 mg PO DAILY RF: 0 levothyroxine 112 mcg capsule 112 mcg PO DAILY Qty: 30 RF: 1 (DME) Urinary Leg Bag Kit See Rx Instructions .ROUTE .MEDSUPPLY Qty: 1 RF: 12 ketoconazole 2 % Cream 1 applic TOPICAL BID RF: 0 Neosporin (yqo-ppc-noubo) 3.5-400-5,000 bi-gkfr-fzcx Ointment In Packet See Rx Instructions .ROUTE .COMPLEX RF: 0 Discharge Orders: Discharge Order (Routine); Ordered 04/23/20 Ordered By: Yelena Nichole Referrals: Jimmy Gomez MD [Primary Care Provider] - Discharge Diet: Usual diet Discharge Activity: Resume usual activity Patient Instructions: Viral Pneumonia (ED) Activity Restrictions/Additional Instructions: Return to the emergency department if increasing shortness of breath or diff iculty keeping the oxygen saturations around 90. Follow-up with your regular doctor. The warfarin dose may need to be adjusted based on the labs today. Continue quarantining until the results of the second test are available. Discharge Date/Time: 04/23/20 21:54 Coding Level of Care Code ED Therapeutic Activities Services Worker for Chg Fwd Exam Comprehensive
[2020-04-23 18:08] LABS: Basophils # 0.1 10^3/uL (0.0-0.1); Basophils % 1.1 %; Eosinophils # 0.1 10^3/uL (0.0-0.8); Eosinophils % 2.4 %; Hematocrit 41.1 % (42.0-52.0); Hemoglobin 12.1 g/dL (11.7-16.6); Lymphocytes # 0.7 10^3/uL (0.8-4.8); Lymphocytes % 12.5 %; Mean Corpuscular HGB Conc 29.4 g/dL (30.0-36.0); Mean Corpuscular Hemoglobin 31.1 pg (28.0-34.0); Mean Corpuscular Volume 105.7 fL (80-94); Mean Platelet Volume 10.6 fL (7.4-10.4); Monocytes # 0.4 10^3/uL (0.2-0.9); Monocytes % 8.1 %; Neutrophils # 4.09 10^3/uL (1.8-7.7); Neutrophils % 75.3 %; Nucleated Red Blood Cells % 0 %; Platelet Count 173 10^3/cmm (130-400); Red Blood Count 3.89 10^6/uL (4.1-5.3); Red Cell Distribution Width 15.2 % (12.1-15.1); White Blood Count 5.4 10^3/uL (4.0-10.0)
[2020-04-23 18:15] LABS: INR 1.47 (0.8-1.2)
[2020-04-23 18:16] LABS: Fibrinogen 675 mg/dL (174-498)
[2020-04-23 18:18] LABS: D Dimer 2.68 ug/mIFEU (0-0.59)
[2020-04-23 18:22] LABS: Lactate (Lactic Acid level) 0.9 mmol/L (0.5-2.2); Troponin(5th) Baseline 13 ng/L (0-15)
[2020-04-23 18:30] LABS: NT Pro B Type Natriuretic Pept 314 pg/mL (0-125); Procalcitonin 0.06 ng/mL (0-0.5)
[2020-04-23 18:41] LABS: Alanine Aminotransferase 11 U/L (0-41); Albumin Level 3.3 g/dL (3.5-5.2); Alkaline Phosphatase 89 IU/L (40-130); Anion Gap 12.1 (5-19); Aspartate Amino Transferase 20 U/L (0-40); Blood Urea Nitrogen 12 mg/dL (6-20); C Reactive Protein 78.9 mg/L (0.0-4.9); Calcium 8.6 mg/dL (8.5-10.5); Carbon Dioxide 34 mmol/L (22-29); Chloride 94 mmol/L (98-107); Creatine Phosphokinase 103 U/L (39-308); Globulin 4.6 g/dL (1.3-4.6); Glomerular Filtration Rate 86.7 mL/min (90-130); Glucose 85 mg/dL (65-115); Magnesium 2.3 mg/dL (1.7-2.3); Osmolality Calculated 281 mOsm/kg (285-295); Potassium 4.1 mmol/L (3.5-5.1); Sodium 136 mmol/L (136-145); Total Bilirubin 0.3 mg/dL (0.15-1.2); Total Protein 7.9 g/dL (6.6-8.7)
[2020-04-23 18:51] LABS: SARS Covid-2 Antigen Negative (Negative)
--- NOTE | 2020-04-23 19:00 | CTR_ITS ---
PROCEDURE INFORMATION: Exam: CT Angiography Chest With Contrast Exam date and time: 04/23/2020 7:57 PM Age: 59 years old Clinical indication: Cough and shortness of breath; Additional info: Hypoxia, h/o dvt, R/O covid TECHNIQUE: Imaging protocol: Computed tomographic angiography of the chest with intravenous contrast. 3D rendering (Not supervised by radiologist): MIP and/or 3D reconstructed images were created by the technologist. Radiation optimization: All CT scans at this facility use at least one of these dose optimization techniques: automated exposure control; mA and/or kV adjustment per patient size (includes targeted exams where dose is matched to clinical indication); or iterative reconstruction. Contrast material: OMNI 350; Contrast volume: 69 ml; Contrast route: INTRAVENOUS (IV); COMPARISON: 1. CR XR chest 1V portable [id number] 04/23/2020 6:[address] abdomen pelvis w con* [id number] 12/17/2019 3:25:33 PM RADIATION DOSE METRICS: Total DLP (mGy-cm): 632.1 FINDINGS: Pulmonary arteries: The pulmonary arteries are adequately opacified for evaluation to the subsegmental level. There is no filling defect to suggest embolism. Aorta: The aorta is unremarkable. There is no aneurysm. Lungs: There is mild thickening of central interstitial markings bilaterally. There are clustered tiny branching (tree-in-bud) nodules in the right upper lobe. see axial series 3 image 26 through 30. There is a noncalcified subpleural nodule in the right upper lobe measuring up to 6 mm diameter. There is a benign calcified granuloma in the left lower lobe. There is subsegmental atelectasis in the lung bases. There is mild patchy ground-glass opacity in the left lung apex. Pleural space: There is no pleural effusion or pneumothorax. Heart: The heart is unremarkable. There is no pericardial effusion. Mediastinal space: There is decreased AP diameter of the distal trachea and central bronchi consistent with tracheobronchomalacia. Lymph nodes: There is no mediastinal or hilar lymphadenopathy. Kidneys and ureters: There are simple parapelvic cysts in the left kidney. Bones/joints: There is a 13 x 9 mm lucent bone lesion in the right T9 transverse process. The lesion is circumscribed and there is an ill-defined high attenuation focus centrally. There is cortical breakthrough anteriorly. There is irregular periosteal new bone formation adjacent to the lesion. Bones are otherwise unremarkable. Soft tissues: The extrathoracic soft tissues are unremarkable. Other findings: Small bilateral fat containing posterior diaphragmatic hernias. CT/CT angio chest PE protcl [id number] IMPRESSION: 1. Mild nonspecific bilateral pulmonary opacities. Findings suggest a combination of mild interstitial edema and/or low-grade infection. 2. No pulmonary embolism. 3. Tracheobronchomalacia. 4. Bone lesion in the right T9 transverse process with indeterminate features. No change since 12/17/2019. Metastasis is not excluded. Consider follow-up bone scan. 5. 6 mm noncalcified right upper lobe pulmonary nodule. For patients at low risk (minimal or absent history of smoking and of other known risk factors), no routine follow-up is indicated. For patients at high risk (history of smoking or of other known risk factors), consider optional CT Chest at 12 months. (Reference: Heidy) COMMENTS: Consistent with the [place] [employer]'s Incidental Findings Committee white paper (J Am Opllo Radiol 2018): Any incidental renal lesion less than 1 cm or classified as too small to characterize, or any incidental cystic renal lesion characterized as simple-appearing, is likely benign. No follow-up imaging is recommended for these lesions per consensus recommendations based on imaging criteria. REFERENCES: Heidy Evangelista, et al. Guidelines for Management of Incidental Pulmonary Nodules Detected on CT Images: From the Fleischner Society 2017. Radiology. 2017;284(1):228-243. Radiation Dose CTDIVOL = (mGy): DLP = 632.1 (mGy-cm)
--- NOTE | 2020-04-23 19:38 | ECG_ITS ---
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 Measurements Intervals [place] Rate: 68 P: 50 RI: 130 QRS: -6 QRSD: 88 T: 24 QT: 416 QTc: 444 Interpretive Statements SINUS RHYTHM LOW QRS VOLTAGE IN PRECORDIAL LEADS [QRS DEFLECTION < 1.0 mV IN CHEST LEADS] PATTERN CONSISTENT WITH PULMONARY DISEASE Compared to ECG 12/17/2019 17:01:55 No significant changes Electronically Signed On 04-24-2020 21:38:39 CDT by Giovanna Carrillo M.D. [email or web address] county medical centerBlueBox Groupmercy health st. [facility].[employer]!/store/OM/[id number]
[2020-04-23] MEDS: iohexol 300 mg/mL 100 mL Btl IV (19:58)
[2020-04-23] MEDS: iohexol 350 mg/mL 100 mL Btl IV (20:08)
[2020-04-23 20:15] LABS: Troponin 5 2HR 13.37 ng/L (0-15); Troponin 5 2HR Delta 0.37 ABS# (0-10)
[2020-04-23 20:59] VITALS: BP 117/80; PULSE 76; RESP 18; O2SAT 100
[2020-04-23 21:51] VITALS: BP 105/69; PULSE 74; RESP 16; O2SAT 99
[2020-04-26 14:43] LABS: Quest SARS-CoV-2 RNA NOT DETECTED (NOT DETECTED)
--- NOTE | 2020-04-27 07:36 | PC.NURSE ---
Pt called and notified of negative COVID result.
== END 2020-04-23 21:54 | disposition home or self-care (01) ==
PROVIDERS: Nurse Practitioner Family; Emergency Provider Emergency Medicine; PCP Internal Medicine
DX: J06.9 Acute upper respiratory infection, unspecified (principal); Z20.828 Contact with and (suspected) exposure to other viral communicable diseases; Q90.9 Down syndrome, unspecified; Z79.01 Long term (current) use of anticoagulants; G30.9 Alzheimer's disease, unspecified; F02.80 Dementia in other diseases classified elsewhere, unspecified severity, without behavioral disturbance, psychotic disturbance, mood disturbance, and anxiety
CPT/HCPCS: 12345; 36415; 71045; 71275; 80053; 82550; 83605; 83735; 83880; 84145; 84484; 85025; 85378; 85384; 85610; 86140; 87426; 87635; 93005; 99282; 99284; Q9967

== ENCOUNTER → 2020-05-29 14:14 | Outpatient (BNVA) | payer MEDICARE, MEDICAID, SELFPAY | PROVIDERS: PCP Internal Medicine; Visit Provider Specialist | DX: Z51.5 Encounter for palliative care (principal); G30.9 Alzheimer's disease, unspecified; F02.80 Dementia in other diseases classified elsewhere, unspecified severity, without behavioral disturbance, psychotic disturbance, mood disturbance, and anxiety; Q90.9 Down syndrome, unspecified; F31.9 Bipolar disorder, unspecified | CPT/HCPCS: 99213 ==

== ENCOUNTER 2020-06-11 22:42 | Emergency (ER) | payer MEDICARE, MEDICAID, SELFPAY ==
[2020-06-11 23:15] VITALS: BP 115/77; PULSE 74; RESP 16; TEMP 36.1; O2SAT 93; BMI 40.4
--- NOTE | 2020-06-11 23:24 | ED_ITS ---
HPI - Male Genitourinary General: Chief complaint: Urogenital-Male Stated complaint: BROKEN CATHETER Time Seen by Provider: 06/11/20 23:20 Source: patient Mode of arrival: ambulatory Limitations: no limitations History of Present Illness: HPI Narrative: Nicanor is a pleasant 59-year-old male with dementia and Down syndrome who comes in with a suprapubic catheter that is malfunctioning. They noticed that the catheter had almost backed out entirely from the patient's abdomen. Patient does not have any discomfort. There is no fever or vomiting. Review of Systems General: Reports: ROS unobtainable due to mental status PFSH ED PFSH: Medical History Alzheimers disease Bipolar 1 disorder Chronic anticoagulation DVT (deep venous thrombosis) Hypothyroidism, unspecified Hypoxemia Pathological dislocation of both shoulder joints Suprapubic catheter Traumatic injury of urethra Trisomy 21 Social History Smoking and tobacco status: never smoked Alcohol intake: never Housing: Assisted Living Facility Marital status: Single Current occupational status: disabled History of recent travel: No Physical Exam Const: COMMON NORMALS: no acute distress, no limitations and alert GENERAL APPEARANCE: cooperative HENMT: COMMON NORMALS: normocephalic and atraumatic HEAD & SCALP: normal to inspection, normocephalic and atraumatic FACE & SINUS: normal facial exam and face symmetric Eye: COMMON NORMALS: Equal, round and reactive pupils present and conjunctivae normal GENERAL EYE: appearance normal, both eyes and all related structures ALIGNMENT: Yes alignment normal PERIORBITAL: periorbital findings normal EYELID: eyelids normal CONJUNCTIVA: Yes conjunctivae normal SCLERA: sclerae normal PUPIL: Yes Equal, round and reactive pupils present GI: COMMON NORMALS: Soft to palpation and No hepatosplenomegaly present PALPATION: Yes Soft to palpation, No Tenderness to palpation present (GI), No Guarding due to palpation present (GI), No Rigid due to palpation, Yes No hepatosplenomegaly present, No Hernia present, No Palpable mass present and No Pulsatile mass present Neuro: COMMON NORMALS: moves all extremities, no focal motor deficits and no s ensory deficits noted SENSORIUM/ORIENTATION: Yes alert Skin: COMMON NORMALS: no rashes or lesions noted, turgor normal, no jaundice, no petechiae and no mottling GENERAL SKIN EXAM: no rashes or lesions noted and turgor normal Course Vital Signs: Vital signs: Vital Signs Temperature 96.9 F L 06/11/20 23:15 Pulse Rate 74 06/11/20 23:15 Respiratory Rate 16 06/11/20 23:15 Blood Pressure 115/77 06/11/20 23:15 Pulse Oximetry 93 06/11/20 23:15 MDM - Male MDM Narrative: Medical decision making narrative: Patient's balloon port on the Das catheter has come off and there is no air in the balloon. The catheter has backed itself out. We will go ahead and replace it and once it is functioning normally we will discharge him home. Discharge Plan Discharge Patient Disposition: Home Clinical Impression: Complication of Das catheter Qualifiers: Encounter type: initial encounter Qualified Code(s): T83.9XXA - Unspecified complication of genitourinary prosthetic device, implant and graft, initial encounter Condition: Stable Prescriptions: New cefdinir 300 mg capsule 300 mg PO Q12H 10 Days Qty: 20 RF: 0 No Action olanzapine [Zyprexa] 5 mg tablet 5 mg PO DAILY RF: 0 carbamide peroxide [Debrox] 6.5 % drops 5 drop EAR-BOTH DAILY RF: 0 warfarin [Coumadin] 2 mg tablet 2 mg PO .DAILY DIRECTED RF: 0 citalopram [Celexa] 40 mg tablet 40 mg PO DAILY RF: 0 donepezil [Aricept] 5 mg tablet 5 mg PO DAILY RF: 0 dextromethorphan-guaifenesin [Adult Robitussin Peak Cold DM] 10-100 mg/5 mL liquid 10 ml PO Q4H PRN (Reason: COUGH/CONGESTION) RF: 0 bismuth subsalicylate 525 mg/15 mL suspension 525 mg PO Q30M PRN (Reason: DIARRHEA/STOMACH RELIEF) RF: 0 alum-mag hydroxide-simeth [Mylanta Maximum Strength] 400-400-40 mg/5 mL suspension 5 ml PO QID PRN (Reason: UPSET STOMACH/GAS RELIEF) RF: 0 magnesium hydroxide [Milk Of Magnesia Concentrated] 2,400 mg/10 mL suspension 5 ml PO DAILY PRN (Reason: Constipation) RF: 0 olanzapine [Zyprexa] 2.5 mg tablet 5 mg PO .prn RF: 0 doxycycline hyclate 100 mg capsule 100 mg PO BID Qty: 10 RF: 0 albuterol sulfate 2.5 mg /3 mL (0.083 %) solution for nebulization 2.5 mg INHALATION Q6H RF: 0 loratadine [Claritin] 10 mg tablet 10 mg PO DAILY RF: 0 levothyroxine 112 mcg capsule 112 mcg PO DAILY Qty: 30 RF: 1 (DME) Urinary Leg Bag Kit See Rx Instructions .ROUTE .MEDSUPPLY Qty: 1 RF: 12 furosemide [Lasix] 40 mg tablet 50 mg PO DAILY Qty: 90 RF: 3 furosemide [Lasix] 20 mg tablet 10 mg PO QAM Qty: 90 RF: 0 ketoconazole 2 % Cream 1 applic TOPICAL BID RF: 0 Neosporin (fru-nqx-txzig) 3.5-400-5,000 [id number] Ointment In Packet See Rx Instructions .ROUTE .COMPLEX RF: 0 Discharge Orders: Discharge Order (Routine); Ordered 06/11/20 Ordered By: Ameena Marin Referrals: Jimmy Gomez MD [Primary Care Provider] - 1 week Discharge Diet: Usual diet Discharge Activity: Resume usual activity Patient Instructions: Das Catheter Care Activity Restrictions/Additional Instructions: Please return to the ER immediately for any of the signs or symptoms listed on your discharge instruction sheets, worsening/changing of your symptoms, you are not getting better as quickly as expected, or for ANY other cause or concerns. If you have any further problems with your catheter please return to the ER immediately for recheck. Coding Level of Care Code ED Commissioning Specialist for Gio Fwguzman Exam Comprehensive
[2020-06-11] MEDS: cefdinir 300 MG CAPSULE PO (23:59)
--- NOTE | 2020-06-12 00:06 | PC.NURSE ---
16 fr goodman placed.
== END 2020-06-12 00:06 | disposition home or self-care (01) ==
PROVIDERS: Emergency Provider Emergency Medicine; PCP Internal Medicine
DX: T83.9XXA Unspecified complication of genitourinary prosthetic device, implant and graft, initial encounter (principal); Z79.01 Long term (current) use of anticoagulants; G30.9 Alzheimer's disease, unspecified; F02.80 Dementia in other diseases classified elsewhere, unspecified severity, without behavioral disturbance, psychotic disturbance, mood disturbance, and anxiety; Q90.9 Down syndrome, unspecified
CPT/HCPCS: 12345; 99281; 99283

== ENCOUNTER 2020-09-29 23:19 | Inpatient (IN) | payer MEDICARE, MEDICAID, SELFPAY ==
[2020-09-29 23:23] VITALS: BP 139/82; PULSE 98; RESP 21; O2SAT 98; BMI 36.0
--- NOTE | 2020-09-29 23:25 | XR_ITS ---
WS: [id number] XR chest 1V portable [id number] REASON FOR EXAM: chf FINDINGS: There is cardiomegaly. There are interstitial changes in both lower lung domínguez which appear both chr onic and subacute. There are small pleural effusions and fluid in the minor fissure on the right. No recent chest radiographs to compare with. XR/XR chest 1V portable [id number] IMPRESSION: Findings compatible with congestive heart failure, likely chronic and subacute.
--- NOTE | 2020-09-29 23:25 | ECG_ITS ---
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 Measurements Intervals [place] Rate: 94 P: 50 MN: 124 QRS: -9 QRSD: 95 T: 44 QT: 354 QTc: 444 Interpretive Statements SINUS RHYTHM LOW QRS VOLTAGE IN PRECORDIAL LEADS [QRS DEFLECTION < 1.0 mV IN CHEST LEADS] INCOMPLETE RIGHT BUNDLE BRANCH BLOCK [90+ ms QRS DURATION, TERMINAL R IN V1/V2, 40+ ms S IN I/aVL/V4/V5/V6] Compared to ECG 04/23/2020 19:03:55 Incomplete right bundle-branch block now present Electronically Signed On 09-30-2020 23:52:13 CDT by Giovanna Carrillo M.D. [email or web address] GoodQuizrrtrinity [facility] hospital.[email or web address]/store/OM/[id number]
[2020-09-29 23:36] VITALS: BP 100/56; PULSE 99; RESP 20; O2SAT 97
[2020-09-29] MEDS: FUROsemide 10 mg/mL SDV 10mL 80 MG IVP (23:41)
[2020-09-29 23:42] VITALS: PULSE 95; RESP 20; O2SAT 95
[2020-09-29] MEDS: nitroglycerin 1 gm/inch oint Pkt 1 INCH TOPICAL (23:42)
[2020-09-29] MEDS: diphenhydrAMINE 50 mg/mL SDV 1mL IVP (23:46)
[2020-09-29 23:48] LABS: Basophils # 0.1 10^3/uL (0.0-0.1); Basophils % 0.5 %; Eosinophils % 0.2 %; Hemoglobin 11.5 g/dL (11.7-16.6); Lymphocytes # 0.2 10^3/uL (0.8-4.8); Lymphocytes % 1.7 %; Mean Corpuscular HGB Conc 29.5 g/dL (30.0-36.0); Mean Corpuscular Hemoglobin 31.3 pg (28.0-34.0); Mean Corpuscular Volume 106.3 fL (80-94); Mean Platelet Volume 10.2 fL (7.4-10.4); Monocytes # 0.7 10^3/uL (0.2-0.9); Monocytes % 4.9 %; Neutrophils # 12.83 10^3/uL (1.8-7.7); Neutrophils % 92.1 %; Nucleated Red Blood Cells % 0 %; Platelet Count 198 10^3/cmm (130-400); Red Blood Count 3.67 10^6/uL (4.1-5.3); Red Cell Distribution Width 16.7 % (12.1-15.1); White Blood Count 13.9 10^3/uL (4.0-10.0)
[2020-09-29 23:50] LABS: ABG PH Result 7.33 (7.35-7.45); Arterial Blood Gas Hematocrit 36.1 % (42-52); Base Excess ABG 8.9 mmol/L (-2.0-2.0); Blood Gas Allen Test Pos; Blood Gas Sample Site Radial, right; Blood Gas Sample Type Arterial; HCO3 ABG 37.1 mmol/L (22-26); Oxygen Device BIPAP; PO2 ABG 92.9 mmHg (80.0-100.0)
[2020-09-29 23:51] VITALS: BP 108/61; PULSE 97; RESP 18; O2SAT 98
[2020-09-29 23:51] LABS: ABG PCO2 70.3 mmHg (35-45)
[2020-09-30] VITALS (232 sets, daily range): BP systolic 77–139; BP diastolic 35–105; PULSE 57–127; RESP 10–37; TEMP 36.8–37; O2SAT 45–100
[2020-09-30 00:04] LABS: Lactate (Lactic Acid level) 1.5 mmol/L (0.5-2.2)
[2020-09-30 00:06] LABS: Troponin(5th) Baseline 21 ng/L (0-15)
[2020-09-30 00:16] LABS: Alanine Aminotransferase 10 U/L (0-41); Albumin Level 3.2 g/dL (3.5-5.2); Alkaline Phosphatase 97 IU/L (40-130); Anion Gap 13.8 (5-19); Aspartate Amino Transferase 19 U/L (0-40); Blood Urea Nitrogen 19 mg/dL (6-20); Calcium 8.4 mg/dL (8.5-10.5); Carbon Dioxide 34 mmol/L (22-29); Chloride 97 mmol/L (98-107); Glomerular Filtration Rate 56.5 mL/min (90-130); Glucose 122 mg/dL (65-115); NT Pro B Type Natriuretic Pept 559 pg/mL (0-125); Osmolality Calculated 294 mOsm/kg (285-295); Potassium 4.8 mmol/L (3.5-5.1); Sodium 140 mmol/L (136-145); Thyroid Stimulating Hormone 9.24 uIU/mL (0.27-4.20); Total Bilirubin 0.4 mg/dL (0.15-1.2); Total Protein 7.2 g/dL (6.6-8.7)
[2020-09-30] MEDS: cefTRIAXone 1,000 MG in sodium chloride 0.9% (plus) 50 ML 100 MG IV (01:05)
--- NOTE | 2020-09-30 01:16 | P.HP_ITS ---
Providers/Chief Complaint Primary Care Provider: Jimmy Gomez MD Chief Complaint: CHF History of Present Illness Nicanor Hung is a 60 year old male with a past medical history of Down syndrome, early Alzheimer's dementia, has had a slow decline over the last 6 months, history of DVT anticoagulation recently discontinued, hypothyroidism, who presents to [facility] due to shortness of breath. Currently patient is in the emergency room, he is on the BiPAP, he is fairly lethargic, does not open his eyes to commands, does not follow commands, alert oriented x0, he does moan in pain when sternal rub, but does not have any other responses. I spoke to patient his [facility], I spoke to their manager council Nayeli, who tells me that patient has had a slow decline over the last year, he has had progressively worsening dementia, he has good days and bad days, is wheelchair-bound, can feed himself, but has increased episodes of confusion. She tells me that today patient has been complaining of shortness of breath, towards the end of the day he had increased shortness of breath, requiring a breathing treatment, and soon after his lips turned blue, became increasingly less short of breath, he had low O2 sats so they brought him to [facility]. Here in the emergency room patient has acute hypercarbic respiratory failure secondary to secondary to COPD and right lower lobe pneumonia, currently he is on the BiPAP, unfortunately he is not alert, not awake, he is breathing on the BiPAP machine, but likely the elimination of carbon dioxide is significantly hampered given his lack of cognition, and I am concerned for the lack of utility of the BiPAP machine. I reviewed patient's paperwork, discussed with ER provider, discussed with [facility], patient is DNR, DNI. I have reached out to patient's public aix system administrator Teto Velasquez, for goals of care, however I was unable to reach him, I have left a message. Review of Systems General: Reports: ROS unobtainable due to medical condition Medications/Allergies Home Medications Medication Instructions Recorded Confirmed Last Taken Type levothyroxine 112 mcg capsule 112 mcg PO DAILY #30 cap 08/21/19 05/27/20 12/17/19 Rx bismuth subsalicylate 525 mg/15 mL 525 mg PO Q30M PRN 11/08/19 05/27/20 Unknown History oral suspension carbamide peroxide 6.5 % ear drops 5 drop EAR-BOTH DAILY 11/08/19 05/27/20 Unknown History citalopram 40 mg tablet 40 mg PO DAILY 11/08/19 05/27/20 12/17/19 History dextromethorphan-guaifenesin 10 10 ml PO Q4H PRN 11/08/19 05/27/20 Unknown History mg-100 mg/5 mL oral liquid donepezil 5 mg tablet 5 mg PO DAILY 11/08/19 05/27/20 12/17/19 History magnesium hydroxide 2,400 mg/10 mL 5 ml PO DAILY PRN 11/08/19 05/27/20 Unknown History oral suspension olanzapine 5 mg tablet 5 mg PO DAILY 11/08/19 05/27/20 12/16/19 History Neosporin (jrn-zum-muind) See Rx Instructions .ROUTE .COMPLEX 12/17/19 05/27/20 Unknown History ketoconazole 1 applic TOPICAL BID 12/17/19 05/27/20 12/17/19 History albuterol sulfate 2.5 mg INHALATION Q6H 01/17/20 05/27/20 Unknown History olanzapine 2.5 mg tablet 5 mg PO .prn tab 01/17/20 05/27/20 Unknown History urinary bag #1 each 01/17/20 05/27/20 Unknown Rx loratadine 10 mg tablet 10 mg PO DAILY 03/29/20 05/27/20 Unknown History doxycycline hyclate 100 mg capsule 100 mg PO BID #10 cap 05/15/20 05/27/20 Unknown Rx furosemide 20 mg tablet 10 mg PO QAM #90 tab 05/30/20 Unknown Rx furosemide 40 mg tablet 50 mg PO DAILY #90 tab 05/30/20 Unknown Rx aluminum-mag hydroxide-simethicone 5 ml PO Q4H PRN ml 06/17/20 Unknown History 400 mg-400 mg-40 mg/5 mL oral susp depends incontience diapers #60 ea 06/20/20 Unknown Rx Allergies Allergy/AdvReac Type Severity Reaction Status Date / Time No Known Allergies Allergy Verified 06/11/20 23:19 PFSH Acute PFSH: Medical History Alzheimers disease Bipolar 1 disorder Chronic anticoagulation DVT (deep venous thrombosis) Hypothyroidism, unspecified Hypoxemia Pathological dislocation of both shoulder joints Suprapubic catheter Traumatic injury of urethra Trisomy 21 Social History Smoking and tobacco status: never smoked Alcohol intake: never Housing: Assisted Living Facility Marital status: Single Current occupational status: disabled History of recent travel: No Vitals/I&O/Wt Last Vital Signs Pulse 93 09/30/20 00:21 Resp 19 H 09/30/20 00:21 BP 107/74 09/30/20 00:21 Pulse Ox 92 09/30/20 00:21 Weight last 48 hrs Weight 95.254 kg Physical Exam Narrative: EXAM NARRATIVE: Patient is alert oriented x0, does not follow commands, does moan in pain during sternal rub, Const: COMMON NORMALS: no acute distress HENMT: COMMON NORMALS: normocephalic HEAD & SCALP: normocephalic Eye: GENERAL EYE: appearance normal, both eyes and all related structures PUPIL: Yes Equal, round and reactive pupils present Neck/C-Spine: COMMON NORMALS: full ROM, no lymphadenopathy and no JVD THYROID: Thyroid normal Lymph: LYMPHATIC: no lymphadenopathy noted Resp: COMMON NORMALS: normal respiratory effort, No retractions, No use of accessory muscles and clear to auscultation bilaterally AUSCULTATION: wheezes Cardio: COMMON NORMALS: no JVD, regular rate, regular rhythm, S1 normal heart sound present, S2 normal heart sound present, No gallops present (Cardio), No clicks present (Cardio) and No murmurs present (Cardio) RATE: regular rate RHYTHM: regular rhythm HEART SOUNDS: S1 normal heart sound present and S2 normal heart sound present GI: COMMON NORMALS: Normal to inspection, nondistended, normoactive bowel sounds present, Soft to palpation, non-tender and No hepatosplenomegaly present PALPATION: Yes Soft to palpation and Yes No hepatosplenomegaly present Extremity: COMMON NORMALS: normal to inspection, full ROM and no pedal edema Neuro: OTHER: Unable to follow neurologic testing Data : 09/29/20 23:27 09/29/20 23:27 Micro: Microbiology 09/29/20 23:27 Blood Culture - Preliminary Blood SPECIMEN COLLECTED A&P Assessment and plan (1) Acute respiratory failure with hypoxia and hypercapnia: -Secondary to right lower lobe pneumonia, likely aspiration pneumonia -Some component of COPD exacerbation -Some component of fluid overload pulmonary edema Plan: -Admit to ICU -Continue BiPAP, however I am concerned about the utility of using BiPAP as he is alert oriented x0, barely responds to sternal rub -We will see how his ABGs looks in the next few hours after BiPAP, will see if I can get his PCO2 down -I reached out to Teto Velasquez about patient's goals of care, I have not received a response as of yet -Broad-spectrum antibiotic therapy vancomycin, Zosyn -Continue Solu-Medrol 40 every 12 hours -Nebulizers 4 times daily -Lasix 40 IV once daily -Increase levothyroxine to 60 mcg every 24 hours -Serial EKGs, shortness opponents -CT angiogram, pro-Raj, CRP, blood cultures, sputum cultures, urine cultures -DNR/DNI -Lovenox for DVT prophylaxis Status: Acute Attestations Medical Necessity Statement*: Patient requires hospitalization, inpatient, greater than 2 midnights, ICU mission for acute respiratory failure with hypoxia and hypercapnia secondary to right lower lobe pneumonia, COPD, pulmonary edema Coding Level of Care Code Acute Farm Field Manager for Gio Monahan Diagnoses Acute respiratory failure with hypoxia and hypercapnia J96.01; J96.02
--- NOTE | 2020-09-30 01:25 | ECG_ITS ---
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 Measurements Intervals [place] Rate: 82 P: 50 SC: 128 QRS: -1 QRSD: 105 T: 35 QT: 393 QTc: 460 Interpretive Statements SINUS RHYTHM INCOMPLETE RIGHT BUNDLE BRANCH BLOCK [90+ ms QRS DURATION, TERMINAL R IN V1/V2, 40+ ms S IN I/aVL/V4/V5/V6] Compared to ECG 09/29/2020 21:59:33 No significant changes Electronically Signed On 10-01-2020 0:05:47 CDT by Giovanna Carrillo M.D. [id number]
[2020-09-30 01:59] LABS: Troponin 5 2HR 19.54 ng/L (0-15)
[2020-09-30 02:02] LABS: Troponin 5 2HR Delta -1.46 ABS# (0-10)
[2020-09-30 03:02] LABS: ABG PH Result 7.33 (7.35-7.45); Arterial Blood Gas Hematocrit 36.6 % (42-52); Base Excess ABG 10.8 mmol/L (-2.0-2.0); Blood Gas Allen Test Pos; Blood Gas Sample Site Radial, right; Blood Gas Sample Type Arterial; HCO3 ABG 39.5 mmol/L (22-26); Oxygen Device BIPAP
--- NOTE | 2020-09-30 03:13 | ED_ITS ---
HPI - SOB/Dyspnea General: Chief Complaint: Shortness of Breath/Dyspnea Stated Complaint: CHF Time Seen by Provider: 09/29/20 23:25 History of Present Illness: HPI Narrative: 60-year-old male with a history of Down syndrome. He also has a history of dementia, pneumonia. He presents with significant shortness of breath with a decently quick onset. He evidently is on 2 L of concentrated oxygen at home. His saturations were low. His breathing was labored. The patient is nonverbal, so no other history could be gleaned. Typically, he is nonverbal, and mostly in bed. He is to have help with all transfers. MD elicited complaint: shortness of breath Pertinent past history: pneumonia Onset (ago): hour(s) Timing: constant and progressively worsening Severity: severe Exacerbating factors: lying flat Relieving factors: oxygen Known history of: recurrent pneumonia Associated symptoms: Reports chest congestion, cough and rash; Deny fever(s) or vomiting Review of Systems General: Reports: ROS unobtainable due to medical condition and ROS unobtainable due to mental status Const: Denies: fever(s) Resp: Reports: chest congestion GI: Denies: vomiting PFSH ED PFSH: Medical History Alzheimers disease Bipolar 1 disorder Chronic anticoagulation DVT (deep venous thrombosis) Hypothyroidism, unspecified Hypoxemia Pathological dislocation of both shoulder joints Suprapubic catheter Traumatic injury of urethra Trisomy 21 Social History Smoking and tobacco status: never smoked Alcohol intake: never Housing: Assisted Living Facility Marital status: Single Current occupational status: disabled History of recent travel: No Physical Exam Const: EXAM LIMITATIONS: altered mental status GENERAL APPEARANCE: in distress, lethargic and ill appearing ORIENTATION/CONSCIOUSNESS: Yes lethargic Eye: COMMON NORMALS: Equal, round and reactive pupils present PUPIL: Yes Equal, round and reactive pupils present Chest: COMMONS NORMALS: normal inspection of the chest Resp: EFFORT & INSPECTION: Yes tachypneic, Yes respiratory distress, Yes labored, Yes grunting, Yes retractions and Yes uses accessory muscles AUSCULTATION: rales and rhonchi Cardio: COMMON NORMALS: regular rhythm RATE: tachycardic RHYTHM: regular rhythm GI: COMMON NORMALS: Soft to palpation PALPATION: Yes Soft to palpation Neuro: SENSORIUM/ORIENTATION: Yes lethargic Course 2 Consultations: Consultation #1: humberto Vital Signs: Vital signs: Vital Signs Pulse Rate 78 09/30/20 03:15 Respiratory Rate 16 09/30/20 02:38 Blood Pressure 98/67 09/30/20 02:38 Pulse Oximetry 93 09/30/20 03:15 MDM - SOB/Dyspnea MDM Narrative: Medical decision making narrative: 60-year-old Down syndrome patient arrives by EMS and hyper bicarb acute hypoxic respiratory failure. He is a DO NOT RESUSCITATE patient. He was placed on immediately on BiPAP, and has done quite well on BiPAP. He is oxygenating well, and respirations are much less labored. He is a bit more alert after some time on BiPAP as well. His white blood cell count is 13.9. Creatinine is 1.3. Hemoglobin 11.5. X-ray shows a right lower lobe pneumonia, with some likely superimposed pulmonary edema. He is treated for both. He will go to the ICU. Lab Data: Labs: Lab Results 09/29/20 09/29/20 09/29/20 Range/Units 23:27 23:27 23:27 WBC 13.9 H (4.0-10.0) 10^3/ uL RBC 3.67 L (4.1-5.3) 10^6/u L Hgb 11.5 L (11.7-16.6) g/dL Hct 39.0 L (42.0-52.0) % MCV 106.3 H (80-94) fL MCH 31.3 (28.0-34.0) pg MCHC 29.5 L (30.0-36.0) g/dL RDW 16.7 H (12.1-15.1) % Plt Count 198 (130-400) 10^3/c mm MPV 10.2 (7.4-10.4) fL Neut % (Auto) 92.1 % Lymph % (Auto) 1.7 % Hickman % (Auto) 4.9 % Eos % (Auto) 0.2 % Baso % (Auto) 0.5 % Neut # (Auto) 12.83 H (1.8-7.7) 10^3/u L Lymph # (Auto) 0.2 L (0.8-4.8) 10^3/u L Hickman # (Auto) 0.7 (0.2-0.9) 10^3/u L Eos # (Auto) 0.0 (0.0-0.8) 10^3/u L Baso # (Auto) 0.1 (0.0-0.1) 10^3/u L Nucleated RBC % (a uto) 0 % Nucleated RBCs # 0.0 /100WBC Specimen Type Sample Site ABG pH (7.35-7.45) ABG pCO2 (35-45) mmHg ABG pO2 (80.0-100.0) mmH g ABG HCO3 (22-26) mmol/L ABG Base Excess (-2.0-2.0) mmol/ L Barry Test Hematocrit (42-52) % O2 Delivery Device FiO2 % Certified Health Education Specialist ID Sodium 140 (136-145) mmol/L Potassium 4.8 (3.5-5.1) mmol/L Chloride 97 L (98-107) mmol/L Carbon Dioxide 34 H (22-29) mmol/L Anion Gap 13.8 (5-19) BUN 19 (6-20) mg/dL Creatinine 1.3 H (0.7-1.2) mg/dL GFR Calculation 56.5 L (90-130) mL/min Glucose 122 H (65-115) mg/dL Calculated Osmolal ity 294 (285-295) mOsm/k g Lactate (0.5-2.2) mmol/L Calcium 8.4 L (8.5-10.5) mg/dL Total Bilirubin 0.4 (0.15-1.2) mg/dL AST 19 (0-40) U/L ALT 10 (0-41) U/L Alkaline Phosphata se 97 (40-130) IU/L Troponin T Baselin e 21 H (0-15) ng/L NT-Pro-B Natriuret Pep 559 H (0-125) pg/mL Total Protein 7.2 (6.6-8.7) g/dL Albumin 3.2 L (3.5-5.2) g/dL Globulin 4.0 (1.3-4.6) g/dL TSH 9.24 H (0.27-4.20) uIU/ mL 09/29/20 09/29/20 Range/Units 23:27 23:40 WBC (4.0-10.0) 10^3/ uL RBC (4.1-5.3) 10^6/u L Hgb (11.7-16.6) g/dL Hct (42.0-52.0) % MCV (80-94) fL MCH (28.0-34.0) pg MCHC (30.0-36.0) g/dL RDW (12.1-15.1) % Plt Count (130-400) 10^3/c mm MPV (7.4-10.4) fL Neut % (Auto) % Lymph % (Auto) % Hickman % (Auto) % Eos % (Auto) % Baso % (Auto) % Neut # (Auto) (1.8-7.7) 10^3/u L Lymph # (Auto) (0.8-4.8) 10^3/u L Hickman # (Auto) (0.2-0.9) 10^3/u L Eos # (Auto) (0.0-0.8) 10^3/u L Baso # (Auto) (0.0-0.1) 10^3/u L Nucleated RBC % (a uto) % Nucleated RBCs # /100WBC Specimen Type Arterial Sample Site Radial, right ABG pH 7.33 L (7.35-7.45) ABG pCO2 70.3 H* (35-45) mmHg ABG pO2 92.9 (80.0-100.0) mmH g ABG HCO3 37.1 H (22-26) mmol/L ABG Base Excess 8.9 H (-2.0-2.0) mmol/ L Barry Test Pos Hematocrit 36.1 L (42-52) % O2 Delivery Device Bipap FiO2 60.0 % Certified Health Education Specialist ID [email or web address] Sodium (136-145) mmol/L Potassium (3.5-5.1) mmol/L Chloride (98-107) mmol/L Carbon Dioxide (22-29) mmol/L Anion Gap (5-19) BUN (6-20) mg/dL Creatinine (0.7-1.2) mg/dL GFR Calculation (90-130) mL/min Glucose (65-115) mg/dL Calculated Osmolal ity (285-295) mOsm/k g Lactate 1.5 (0.5-2.2) mmol/L Calcium (8.5-10.5) mg/dL Total Bilirubin (0.15-1.2) mg/dL AST (0-40) U/L ALT (0-41) U/L Alkaline Phosphata se (40-130) IU/L Troponin T Baselin e (0-15) ng/L NT-Pro-B Natriuret Pep (0-125) pg/mL Total Protein (6.6-8.7) g/dL Albumin (3.5-5.2) g/dL Globulin (1.3-4.6) g/dL TSH (0.27-4.20) uIU/ mL Critical Care Time Critical Care Time: Critical Care Time: Yes Total Critical Care Time: 35 Attestation: This case had a high probability of a clinically significant, sudden, or life threatening deterioration of this patient's condition which required my full and direct attention, intervention and personal management. Discharge Plan Discharge Patient Disposition: Admitted As Inpatient Admit Provider: Gerard Henderson Clinical Impression: Acute respiratory failure with hypoxia and hypercapnia Pneumonia Qualifiers: Pneumonia type: due to unspecified organism Laterality: unspecified laterality Condition: Critical Coding Level of Care Code ED Yarn Examiner for Kristinag Fwd Exam Detailed
--- NOTE | 2020-09-30 03:49 | PC.PHAR ---
Pharmacokinetic dosing service Date: 09/30/20 Time: 399 Objective: Patient: Nicanor Hung Floor: ICU-3 Age: 60 yo Serum creatinine: 1.3 mg/dL Height: 64.0 Inches Weight (kg): 95.254 Diagnosis: Relevant medical/social history: Cultures and sensitivities: Other labs: Assessment: IBW (kg): 59.20 Dosing wt(kg): 95.254 Estimated Creatinine clearance (ml/min): 51.2 CRCL method: Cockcroft and Gault using ibw(default). Drug selected: Vancomycin Loading dose (mg): 0 Vd (liters): 85.7 (factor used: 0.9 L/kg) Ammon (hr-1): 0.047 Half life (hrs): 14.75 Recommended dose: 1500 mg Interval: 24 hrs Infusion time (hrs): 1.5 Predicted peak (mcg/mL): 25.0 Predicted trough (mcg/mL): 8.68 Total body weight is being used for vancomycin dosing. Renal function is stable [ ] /unstable [ ] Recommendations: Give Vancomycin 1500 mg q 24 hrs with an expected Cpeak of 25.0 mcg/ml and an expected Ctrough of 8.68 mcg/ml Renal dosing of other antibiotics (review renal dosing of other medications and list guidelines here): Thank you for the consult, will continue to follow. Signature: Nany Apodaca [facility]
[2020-09-30] MEDS: vancomycin 1,500 MG/300 ML PIGGYBACK 200 MG IV ×2 (04:13→21:25)
[2020-09-30] MEDS: enoxaparin 40 mg/0.4 mL Syringe SUBCUT (04:13)
[2020-09-30] MEDS: famotidine 20 mg/2 mL INJ IVP ×2 (04:14→15:21)
[2020-09-30] MEDS: piperacillin-tazobactam 3.375 GM in sodium chloride 0.9% (plus) 50 ML IV ×3 (04:44→22:17)
--- NOTE | 2020-09-30 05:25 | ECG_ITS ---
[facility] Test Date: 2020-09-30 Pat Name: Nicanor Hung Department: Room: ICU03 Gender: Male Nursing Care Attendant: : 1960 Requested By: Aiden Reina Order Number: [id number] Terrell MD: Giovanna Carrillo M.D. Measurements Intervals [place] Rate: 74 P: 60 UT: 128 QRS: 1 QRSD: 101 T: 33 QT: 417 QTc: 465 Interpretive Statements SINUS RHYTHM LOW QRS VOLTAGE IN PRECORDIAL LEADS [QRS DEFLECTION < 1.0 mV IN CHEST LEADS] PATTERN CONSISTENT WITH PULMONARY DISEASE INCOMPLETE RIGHT BUNDLE BRANCH BLOCK [90+ ms QRS DURATION, TERMINAL R IN V1/V2, 40+ ms S IN I/aVL/V4/V5/V6] Compared to ECG 09/29/2020 23:09:06 Low QRS voltage now present Electronically Signed On 10-01-2020 0:06:46 CDT by Giovanna Carrillo M.D. [email or web address]
[2020-09-30 06:53] LABS: Troponin 5 6HR 16.13 ng/L (0-15)
[2020-09-30 06:54] LABS: Troponin 5 6HR Delta -4.87 ng/L (0-12)
[2020-09-30] MEDS: ipratropium-albuterol 3 mL Neb INHALATION ×4 (08:03→19:57)
[2020-09-30] MEDS: FUROsemide 10 mg/mL SDV 4mL 40 MG IVP (08:08)
[2020-09-30] MEDS: levothyroxine 100 mcg SDV 60 MCG IVP (08:08)
--- NOTE | 2020-09-30 09:48 | PC.CHAP ---
Pastoral Care Encounter/Spiritual Assessment Type of Contact [] Declined beauty sales advisor visit [] Patient/Family/Request visit [] Outpatient visit [] Follow-up visit [] Physician referral [] Code/Alert [x] Routine visit [] Staff referral [] Actively dying [] Patient sleeping [] Family support [] [] Out of room [] Palliative care [] [] Receiving care in room [] Pre-surgical visit [] Trauma [] Long length of stay [x] ICU visit [x] Other: ventilator Relational/Emotional Strength [] Patient feels connected with others/family/visitors/staff [] Distress [] Loneliness/isolation [] Abandonment Spirituality of Patient [] Person of Natacha [] Attends Sabianist of their Natacha [] Believes in Prayer [] Reads Bible or Buddhist materials [] There are Spiritual issues to be addressed Electromedical Equipment Technician Interventions [x] Prayer [] Active listening [] Non-anxious presence [] Spiritual/emotional support [] Crisis/trauma care [] Spiritual counseling [] Bereavement support [] Provided bereavement packet [] Provided Bible/devotional materials [] Provided toy/stuffed animal, coloring book to patient or family member [] Provided Communion [] Anointing/[place] [] Salvation [x] Completed spiritual assessment [] Other: Impact on Illness or Injury [] Angry [] Fearful [] Anxious [] Often cries [] Exhaustion [] Unable to work [] Unable to attend confucianist [] Unable to walk/stand [] Unable to read [] Unable to drive [] Unable to eat/drink [] Unable to sleep [] Unable to be with family [] Patient intubated [] Other: Summary Time spent with patient
--- NOTE | 2020-09-30 11:07 | P.PN_ITS ---
Subjective Subjective: Interval history: Lethargic. Moaning somewhat to sternal rub. Not opening his eyes. Not following commands. Will bit later this morning noted awake, communicating with the nurse, pointing to the sink to indicate he is thirsty. Vitals/I&O/Wt Last Vital Signs Temp 98.6 F 09/30/20 03:15 Pulse 80 09/30/20 10:11 Resp 18 09/30/20 08:35 BP 139/60 09/30/20 08:35 Pulse Ox 45 L 09/30/20 10:59 09/29/20 09/30/20 09/30/20 22:59 06:59 14:59 Intake Total 350 / 350 50 / 50 Output Total 650 / 650 650 / 650 Balance -300 / -300 -600 / -600 Weight last 48 hrs Weight 95.254 kg Physical Exam Const: COMMON NORMALS: no acute distress ORIENTATION/CONSCIOUSNESS: Yes patient obtunded HENMT: COMMON NORMALS: oropharynx normal Neck/C-Spine: COMMON NORMALS: no JVD Resp: COMMON NORMALS: normal respiratory effort AUSCULTATION: rhonchi and wheezes Cardio: COMMON NORMALS: no JVD, regular rhythm, S1 normal heart sound present, S2 normal heart sound present and No murmurs present (Cardio) RHYTHM: regular rhythm HEART SOUNDS: S1 normal heart sound present and S2 normal heart sound present GI: COMMON NORMALS: Normal to inspection, nondistended, normoactive bowel sounds present, Soft to palpation and non-tender PALPATION: Yes Soft to palpation Extremity: COMMON NORMALS: no joint enlargement and no pedal edema Neuro: COMMON NORMALS: moves all extremities Skin: COMMON NORMALS: no rashes or lesions noted GENERAL SKIN EXAM: no rashes or lesions noted Data : 09/29/20 23:27 09/29/20 23:27 Micro: Microbiology 09/29/20 06:15 Blood Culture - Preliminary Blood SPECIMEN COLLECTED 09/29/20 23:27 Blood Culture - Preliminary Blood SPECIMEN COLLECTED A&P Assessment and plan (1) Acute respiratory failure with hypoxia and hypercapnia: Obtunded this morning. Worsening CO2. Discussed also with his hebert of court. Given his overall progressive decline, the CODE STATUS is considered appropriate. We will continue treatment for aspiration pneumonia. Antibiotics. Continue steroids at this time as he is wheezing also. Continue BiPAP support as regi ating. Maintain aspiration precautions. This morning was unable to take medications by mouth. TSH noted elevated, so checking free T4 free T3. Levothyroxine transition to IV. Later this morning noted to be waking up. Acute encephalopathy improved. For now empirically thickened liquids, but will hold off if possible with starting diet until speech therapy can assess him. For now continue Lasix. Reevaluate volume status. Status: Acute Attestations Medical Necessity Statement*: Continue admission for assessment management of acute respiratory failure, acute encephalopathy, aspiration pneumonia. Coding Level of Care Code Acute Senior Embedded Software Engineer for Chg Fwd Diagnoses Acute respiratory failure with hypoxia and hypercapnia J96.01; J96.02
[2020-09-30 12:49] LABS: Free T4 Free Thyroxine 0.78 ng/dL (0.82-1.77); T3 Free 1.4 PG/ML (2.0-4.4)
[2020-10-01] VITALS (27 sets, daily range): BP systolic 83–130; BP diastolic 55–76; PULSE 50–79; RESP 14–33; TEMP 36.6–37.1; O2SAT 86–97
--- NOTE | 2020-10-01 01:55 | PC.NURSE ---
DOCUMENTATION Documentation/assessments on and all medications given to this patient from 1845 on 09/30/20 to 0100 on 10/01/20 done by Gerri Herring RN.
--- NOTE | 2020-10-01 02:20 | PC.NURSE ---
[facility] CARE 1900 09/30/20 Report received from Miracle Kwan RN. Patient is lying in bed on 4L nasal cannula. Patient is making incomprehensible sounds but is smiling and giving nurse thumbs up when she gives him thumbs up. Patients suprapubic catheter in place with drainage sponge. Minimal drainage. Patient has peripheral IV in right AC with nothing running at this time.
--- NOTE | 2020-10-01 02:53 | PC.NURSE ---
OXYGEN 0000 hour Patient does not leave pulse ox probe on toe or finger and continually removes nasal cannula from nose and oxygen drops to mid 80s. Respiratory placed oxymask on patient at 4L so that it would stay in patients face. Appears to be working better and patients oxygen is remaining in the 90s.
[2020-10-01 04:05] LABS: Basophils % 0.1 %; Hematocrit 33.5 % (42.0-52.0); Hemoglobin 10.1 g/dL (11.7-16.6); Lymphocytes # 0.4 10^3/uL (0.8-4.8); Lymphocytes % 3.2 %; Mean Corpuscular HGB Conc 30.1 g/dL (30.0-36.0); Mean Corpuscular Hemoglobin 31.3 pg (28.0-34.0); Mean Corpuscular Volume 103.7 fL (80-94); Mean Platelet Volume 10.3 fL (7.4-10.4); Monocytes # 0.2 10^3/uL (0.2-0.9); Neutrophils # 11.55 10^3/uL (1.8-7.7); Neutrophils % 93.9 %; Nucleated Red Blood Cells % 0 %; Platelet Count 162 10^3/cmm (130-400); Red Blood Count 3.23 10^6/uL (4.1-5.3); Red Cell Distribution Width 16.5 % (12.1-15.1); White Blood Count 12.3 10^3/uL (4.0-10.0)
[2020-10-01] MEDS: famotidine 20 mg/2 mL INJ IVP ×2 (04:11→16:25)
[2020-10-01] MEDS: enoxaparin 40 mg/0.4 mL Syringe SUBCUT (04:11)
[2020-10-01 04:27] LABS: Lactate (Lactic Acid level) 1.2 mmol/L (0.5-2.2)
[2020-10-01 04:29] LABS: INR 1.14 (0.8-1.2)
[2020-10-01 04:37] LABS: Alanine Aminotransferase 10 U/L (0-41); Albumin Level 2.8 g/dL (3.5-5.2); Alkaline Phosphatase 74 IU/L (40-130); Anion Gap 10.9 (5-19); Aspartate Amino Transferase 16 U/L (0-40); Blood Urea Nitrogen 26 mg/dL (6-20); C Reactive Protein 81.1 mg/L (0.0-4.9); Calcium 8.2 mg/dL (8.5-10.5); Carbon Dioxide 35 mmol/L (22-29); Chloride 99 mmol/L (98-107); Globulin 4.3 g/dL (1.3-4.6); Glomerular Filtration Rate 76.5 mL/min (90-130); Glucose 142 mg/dL (65-115); Magnesium 2.1 mg/dL (1.7-2.3); Osmolality Calculated 299 mOsm/kg (285-295); Potassium 3.9 mmol/L (3.5-5.1); Sodium 141 mmol/L (136-145); Total Bilirubin 0.3 mg/dL (0.15-1.2); Total Protein 7.1 g/dL (6.6-8.7)
[2020-10-01 04:51] LABS: NT Pro B Type Natriuretic Pept 1186 pg/mL (0-125); Procalcitonin 0.15 ng/mL (0-0.5)
[2020-10-01 05:02] LABS: Chol HDL Ratio 2.93 mg/dL (1.0-5.00); Cholesterol 164 mg/dL (0-200); Creatine Phosphokinase 110 U/L (39-308); HDL Cholesterol 56 mg/dL (60-100); LDL Cholesterol Calculated 96 mg/dL (50-129); LDL HDL Ratio 1.71 RATIO (0.00-3.22); Triglycerides 61 mg/dL (0-150)
[2020-10-01] MEDS: piperacillin-tazobactam 3.375 GM in sodium chloride 0.9% (plus) 50 ML IV ×3 (05:06→20:49)
[2020-10-01 05:27] LABS: ABG PH Result 7.46 (7.35-7.45); Arterial Blood Gas Hematocrit 32.6 % (42-52); Base Excess ABG 12.5 mmol/L (-2.0-2.0); Blood Gas Operator Identificat JB; Blood Gas Sample Site Brachial, right; Blood Gas Sample Type Arterial; HCO3 ABG 38.2 mmol/L (22-26); Oxygen Device OXY MASK; PO2 ABG 90.1 mmHg (80.0-100.0)
--- NOTE | 2020-10-01 06:31 | PC.NURSE ---
SHIFT SUMMARY See previous oxygen note. Patient had 500 mL urine output. Currently on 4L oxymask. Neurological status remains the same.
[2020-10-01] MEDS: ipratropium-albuterol 3 mL Neb INHALATION ×4 (07:27→19:36)
[2020-10-01] MEDS: FUROsemide 10 mg/mL SDV 4mL 40 MG IVP (08:56)
[2020-10-01] MEDS: levothyroxine 100 mcg SDV 60 MCG IVP (08:56)
--- NOTE | 2020-10-01 09:03 | PC.CHAP ---
Pastoral Care Encounter/Spiritual Assessment Type of Contact [] Declined checkout operator visit [] Patient/Family/Request visit [] Outpatient visit [] Follow-up visit [] Physician referral [] Code/Alert [x] Routine visit [] Staff referral [] Actively dying [] Patient sleeping [] Family support [] [] Out of room [] Palliative care [] [] Receiving care in room [] Pre-surgical visit [] Trauma [] Long length of stay [x] ICU visit [x] Other: patient handicapped .. very emotional.. Relational/Emotional Strength [] Patient feels connected with others/family/visitors/staff [] Distress [] Loneliness/isolation [] Abandonment Spirituality of Patient [] Person of Natacha [] Attends Nondenominational of their Natacha [] Believes in Prayer [] Reads Bible or Samaritan materials [] There are Spiritual issues to be addressed Forensic Psychologist Interventions [x] Prayer [] Active listening [] Non-anxious presence [] Spiritual/emotional support [] Crisis/trauma care [] Spiritual counseling [] Bereavement support [] Provided bereavement packet [] Provided Bible/devotional materials [] Provided toy/stuffed animal, coloring book to patient or family member [] Provided Communion [] Anointing/[place] [] Salvation [x] Completed spiritual assessment [] Other: Impact on Illness or Injury [] Angry [] Fearful [] Anxious [] Often cries [] Exhaustion [] Unable to work [] Unable to attend hoahaoism [] Unable to walk/stand [] Unable to read [] Unable to drive [] Unable to eat/drink [] Unable to sleep [] Unable to be with family [] Patient intubated [] Other: Summary Time spent with patient
--- NOTE | 2020-10-01 15:54 | PC.NURSE ---
ICU TRANSFER UP VIA ICU WITH URIEL RN AT SIDE - OXYMASK PLACED ON PER RT AT 4L - AP RRR - LUNGS COARSE THROUGHOUT - ABD SOFT WITH NO DISTENTION - SUPRAPUBIC CATH INTACT WITH YELLOW URINE - PIID NOTED TO LEFT FA TO BE INTACT - SKIN INTACT THROUGHOUT - DOES NOT RESPOND VERBALLY OR FOLLOW COMMANDS AT PRESENT TIME - BROTHER AT SIDE
[2020-10-01] MEDS: vancomycin 1,500 MG/300 ML PIGGYBACK 150 MG IV (16:25)
[2020-10-01] MEDS: OLANZapine 5 mg TABLET PO (18:00)
--- NOTE | 2020-10-01 20:39 | PM.PN ---
Subjective Subjective: Interval history: He is awake, alert today. In good spirits, vocalizing, laughing. Not answering questions or following commands. Worked well with speech therapy. Vitals/I&O/Wt Last Vital Signs Temp 97.9 F 10/01/20 19:38 Pulse 64 10/01/20 19:38 Resp 18 10/01/20 19:38 BP 120/72 10/01/20 19:38 Pulse Ox 90 10/01/20 19:38 10/01/20 10/01/20 10/01/20 06:59 14:59 22:59 Intake Total 50 / 890 290 / 290 450 / 740 Output Total 200 / 200 Balance 50 / -760 290 / 290 250 / 540 Weight last 48 hrs Weight 86.999 kg Weight 95.254 kg Physical Exam Const: COMMON NORMALS: no acute distress and alert; negative for patient oriented x3 GENERAL APPEARANCE: comfortable ORIENTATION/CONSCIOUSNESS: Yes awake HENMT: COMMON NORMALS: oropharynx normal Neck/C-Spine: COMMON NORMALS: no JVD Resp: COMMON NORMALS: normal respiratory effort AUSCULTATION: rhonchi (Significantly improved) and no wheezes Cardio: COMMON NORMALS: no JVD, regular rhythm, S1 normal heart sound present, S2 normal heart sound present and No murmurs present (Cardio) RHYTHM: regular rhythm HEART SOUNDS: S1 normal heart sound present and S2 normal heart sound present GI: COMMON NORMALS: Normal to inspection, nondistended, normoactive bowel sounds present, Soft to palpation and non-tender PALPATION: Yes Soft to palpation Extremity: COMMON NORMALS: no joint enlargement and no pedal edema Neuro: COMMON NORMALS: moves all extremities; negative for patient oriented x3 SENSORIUM/ORIENTATION: Yes alert Skin: COMMON NORMALS: no rashes or lesions noted GENERAL SKIN EXAM: no rashes or lesions noted Data : 10/01/20 03:55 10/01/20 03:55 Micro: Microbiology 09/30/20 09:15 Urine Culture - Preliminary Urine Suprapubic Gram Negative Rods 09/29/20 06:15 Blood Culture - Preliminary Blood NEGATIVE TO DATE 09/29/20 23:27 Blood Culture - Preliminary Blood NEGATIVE TO DATE A&P Assessment and plan (1) Acute respiratory failure with hypoxia and hypercapnia: Obtundation resolved. Awake, alert, cooperating with speech therapy. Continue dysphagia diet. Weaned off BiPAP. Taper down steroid. Continue IV antibiotic for today. Monitor on medical surgical floor, if continues to improve, possibly may be able to discharge within the next 1-2 days. Rhonchi with significant improvement. Wheezing so far pretty resolved. Continue pulmonary toilet. Resume usual medications. Maintain aspiration precautions. Continue IV levothyroxine for now for hypothyroidism. Transition to p.o. at discharge. Follow-up thyroid studies with PCP. Change to oral Lasix. Monitor. Reevaluate volume status. Status: Acute Attestations Medical Necessity Statement*: Continue admission for assessment management of improving acute hypoxic and hypercapnic respiratory failure, taper off IV steroids, switch over to oral Lasix, reassess with speech therapy/monitor for aspiration. If continues to improve, possible discharge within the next 1-2 days. Coding Level of Care Code Acute Emblem Fuser Tender for Chg Fwd Diagnoses Acute respiratory failure with hypoxia and hypercapnia J96.01; J96.02
[2020-10-02] VITALS (26 sets, daily range): BP systolic 108–130; BP diastolic 62–78; PULSE 53–81; RESP 16–22; TEMP 36.6–37; O2SAT 92–98; BMI 32.9
[2020-10-02] MEDS: enoxaparin 40 mg/0.4 mL Syringe SUBCUT (03:44)
[2020-10-02] MEDS: famotidine 20 mg/2 mL INJ IVP ×2 (03:44→16:34)
[2020-10-02] MEDS: piperacillin-tazobactam 3.375 GM in sodium chloride 0.9% (plus) 50 ML IV ×3 (05:16→20:35)
[2020-10-02 05:46] LABS: Hematocrit 33.8 % (42.0-52.0); Hemoglobin 10.2 g/dL (11.7-16.6); Lymphocytes # 0.2 10^3/uL (0.8-4.8); Lymphocytes % 2.7 %; Mean Corpuscular HGB Conc 30.2 g/dL (30.0-36.0); Mean Corpuscular Hemoglobin 31.6 pg (28.0-34.0); Mean Corpuscular Volume 104.6 fL (80-94); Mean Platelet Volume 10.6 fL (7.4-10.4); Monocytes # 0.2 10^3/uL (0.2-0.9); Monocytes % 2.8 %; Neutrophils # 7.94 10^3/uL (1.8-7.7); Neutrophils % 93.7 %; Nucleated Red Blood Cells % 0 %; Platelet Count 171 10^3/cmm (130-400); Red Blood Count 3.23 10^6/uL (4.1-5.3); Red Cell Distribution Width 16.6 % (12.1-15.1); White Blood Count 8.5 10^3/uL (4.0-10.0)
[2020-10-02 06:16] LABS: Alanine Aminotransferase 9 U/L (0-41); Albumin Level 2.8 g/dL (3.5-5.2); Alkaline Phosphatase 66 IU/L (40-130); Anion Gap 9.5 (5-19); Aspartate Amino Transferase 15 U/L (0-40); Blood Urea Nitrogen 27 mg/dL (6-20); Calcium 8.1 mg/dL (8.5-10.5); Carbon Dioxide 37 mmol/L (22-29); Chloride 104 mmol/L (98-107); Globulin 4.3 g/dL (1.3-4.6); Glomerular Filtration Rate 86.4 mL/min (90-130); Glucose 130 mg/dL (65-115); Osmolality Calculated 311 mOsm/kg (285-295); Potassium 3.5 mmol/L (3.5-5.1); Sodium 147 mmol/L (136-145); Total Bilirubin 0.3 mg/dL (0.15-1.2); Total Protein 7.1 g/dL (6.6-8.7)
--- NOTE | 2020-10-02 07:27 | PC.NURSE ---
AM NOTE NOTED PT TO HAVE CONTINOUS PULSE OX ON - 02 AT 95% HEART RATE 50'S
[2020-10-02] MEDS: ipratropium-albuterol 3 mL Neb INHALATION ×4 (07:53→19:40)
--- NOTE | 2020-10-02 07:53 | XR_ITS ---
WS: [id number] XR chest 1V portable [id number] REASON FOR EXAM: hypoxia FINDINGS: Compared to the previous examination of 09/29/2010, there is some increase in the volume of infiltrate in the left mid peripheral lung field and in the right lower lung field. Infiltrates are interstitia l with patchy airspace consolidation. The heart is not significantly enlarged. No new finding or other interval change. XR/XR chest 1V portable [id number] IMPRESSION: Probable evolving pneumonitis versus CHF.
--- NOTE | 2020-10-02 09:37 | PC.NURSE ---
DR RAQUEL GARCÍA NOTIFIED OF INCREASED LETHARGY - PT UNABLE TO SAFELY SWALLOW AM MEDS - NEW ORDERS REC'D
[2020-10-02 09:52] LABS: ABG PH Result 7.42 (7.35-7.45); Arterial Blood Gas Hematocrit 34.8 % (42-52); Base Excess ABG 13.5 mmol/L (-2.0-2.0); Blood Gas Allen Test Pos; Blood Gas Sample Type Arterial; Carboxyhemoglobin 1.1 %THgb (0.4-20.1); HCO3 ABG 40.3 mmol/L (22-26); HGB O2 Sat 95.9 % (95-100); Ionized Calcium Level - ABG 1.2 mmol/L (1.1-1.4); Methemoglobin 0.4 % (0.4-1.5); Oxygen Saturation ABG 97.3; PO2 ABG 84.7 mmHg (80.0-100.0); Potassium Level - ABG 3.8 mmol/L (3.5-5.0); Total Hemoglobin 11.4 g/dL (14-18)
--- NOTE | 2020-10-02 09:52 | PC.NURSE ---
ABG PT WILL RESPOND TO PAINFUL STIMULI - OPENS EYES TO ABG - ABLE TO HOLD EYES OPEN - REMAINS TO LETHARGIC TO SWALLOW AM MEDS - JEREMY THOMAS AT SIDE WELL RT - CONTINOUS PULSE OX REMAINS IN PLACE WITH SATS AT 94 HEART RATE AT 58
[2020-10-02 09:54] LABS: Alveolar-Arterial Oxygen Gradi 26.9 mmHg (5-10); Blood Gas Operator Identificat MONRO; Blood Gas Sample Site Radial, right; Oxygen Device OXY MASK
[2020-10-02 09:55] LABS: ABG PCO2 62.2 mmHg (35-45)
[2020-10-02] MEDS: levothyroxine 100 mcg SDV 60 MCG IVP (10:44)
[2020-10-02] MEDS: vancomycin 1,500 MG/300 ML PIGGYBACK 150 MG IV (10:45)
--- NOTE | 2020-10-02 11:30 | PC.NURSE ---
BIPAP PT TOLERATING BIPAP WELL
[2020-10-02] MEDS: OLANZapine 5 mg TABLET PO (17:13)
--- NOTE | 2020-10-02 19:36 | P.PN_ITS ---
Subjective Subjective: Interval history: This morning he was somnolent, again found hypercapnic, requiring BiPAP support, in the afternoon awake, alert, vocalizing. Not in distress. Vitals/I&O/Wt Last Vital Signs Temp 97.8 F 10/02/20 18:58 Pulse 65 10/02/20 18:58 Resp 18 10/02/20 18:58 BP 108/65 10/02/20 18:58 Pulse Ox 96 10/02/20 18:58 10/02/20 10/02/20 10/02/20 06:59 14:59 22:59 Intake Total 50 / 790 400 / 400 170 / 570 Output Total 400 / 600 1350 / 1350 Balance -350 / 190 400 / 400 -1180 / -780 Weight last 48 hrs Weight 92.986 kg Weight 86.999 kg Weight 86.999 kg Physical Exam Const: COMMON NORMALS: no acute distress and alert; negative for patient oriented x3 GENERAL APPEARANCE: comfortable ORIENTATION/CONSCIOUSNESS: Yes awake OTHER: On BiPAP. becoming more awake during my assessment. Later transitioned to nasal cannula. HENMT: COMMON NORMALS: oropharynx normal Neck/C-Spine: COMMON NORMALS: no JVD Resp: COMMON NORMALS: normal respiratory effort AUSCULTATION: rhonchi and wheezes Cardio: COMMON NORMALS: no JVD, regular rhythm, S1 normal heart sound present, S2 normal heart sound present and No murmurs present (Cardio) RHYTHM: regular rhythm HEART SOUNDS: S1 normal heart sound present and S2 normal heart sound present GI: COMMON NORMALS: Normal to inspection, nondistended, normoactive bowel sounds present, Soft to palpation and non-tender PALPATION: Yes Soft to palpation Extremity: COMMON NORMALS: no joint enlargement and no pedal edema Neuro: COMMON NORMALS: moves all extremities; negative for patient oriented x3 SENSORIUM/ORIENTATION: Yes alert Skin: COMMON NORMALS: no rashes or lesions noted GENERAL SKIN EXAM: no rashes or lesions noted Data : 10/02/20 04:52 10/02/20 04:52 Micro: Microbiology 09/30/20 09:15 Urine Culture - Final Urine Suprapubic Pseudomonas aeruginosa A&P Assessment and plan (1) Acute respiratory failure with hypoxia and hypercapnia: Yesterday more alert, this morning again lethargic with hypercapnic encephalopathy. Noted to get hypercapnia, CO2 up to 62. Restarted on BiPAP. Improved in the afternoon, transition to nasal cannula. Avoid hyperoxia. Continue treatment of COPD exacerbation, hold off on further steroid taper for now. Continue treatment of right lower lobe pneumonia. Continue IV levothyroxine for now. Maintain aspiration precautions. Continue oral Lasix. Monitor. Reevaluate volume status. Status: Acute Additional A&P Information UTI: Pseudomonas continue Zosyn. Attestations Medical Necessity Statement*: Continue admission for assessment management of respiratory failure, requiring BiPAP support intermittently, with hypercapnia, with episodes of encephalopathy due to hypercapnia, treatment of COPD exacerbation, pneumonia, UTI. Coding Level of Care Code Acute Pediatric Speech Therapist for [facility] Hero Diagnoses Acute respiratory failure with hypoxia and hypercapnia J96.01; J96.02
[2020-10-03] VITALS (23 sets, daily range): BP systolic 99–129; BP diastolic 65–79; PULSE 48–87; RESP 14–20; TEMP 36.2–36.6; O2SAT 90–100
[2020-10-03] MEDS: enoxaparin 40 mg/0.4 mL Syringe SUBCUT (03:10)
[2020-10-03] MEDS: famotidine 20 mg/2 mL INJ IVP (03:10)
[2020-10-03] MEDS: vancomycin 1,500 MG/300 ML PIGGYBACK 150 MG IV (04:04)
[2020-10-03 05:41] LABS: Basophils % 0.1 %; Hematocrit 35.1 % (42.0-52.0); Hemoglobin 10.4 g/dL (11.7-16.6); Lymphocytes # 0.3 10^3/uL (0.8-4.8); Lymphocytes % 3.6 %; Mean Corpuscular HGB Conc 29.6 g/dL (30.0-36.0); Mean Corpuscular Hemoglobin 31.3 pg (28.0-34.0); Mean Corpuscular Volume 105.7 fL (80-94); Mean Platelet Volume 10.9 fL (7.4-10.4); Monocytes # 0.3 10^3/uL (0.2-0.9); Monocytes % 4.2 %; Neutrophils # 6.25 10^3/uL (1.8-7.7); Neutrophils % 90.4 %; Nucleated Red Blood Cells % 0 %; Platelet Count 159 10^3/cmm (130-400); Red Blood Count 3.32 10^6/uL (4.1-5.3); Red Cell Distribution Width 16.7 % (12.1-15.1); White Blood Count 6.9 10^3/uL (4.0-10.0)
[2020-10-03 06:04] LABS: Alanine Aminotransferase 38 U/L (0-41); Albumin Level 2.8 g/dL (3.5-5.2); Alkaline Phosphatase 62 IU/L (40-130); Aspartate Amino Transferase 43 U/L (0-40); Blood Urea Nitrogen 24 mg/dL (6-20); Calcium 7.9 mg/dL (8.5-10.5); Carbon Dioxide 36 mmol/L (22-29); Chloride 106 mmol/L (98-107); Glomerular Filtration Rate 86.4 mL/min (90-130); Glucose 111 mg/dL (65-115); Osmolality Calculated 309 mOsm/kg (285-295); Sodium 147 mmol/L (136-145); Total Bilirubin 0.5 mg/dL (0.15-1.2); Total Protein 6.8 g/dL (6.6-8.7)
[2020-10-03] MEDS: piperacillin-tazobactam 3.375 GM in sodium chloride 0.9% (plus) 50 ML IV ×2 (06:24→14:06)
[2020-10-03] MEDS: ipratropium-albuterol 3 mL Neb INHALATION ×4 (07:26→19:40)
[2020-10-03] MEDS: donepezil 5 MG Tablet PO (08:17)
[2020-10-03] MEDS: loratadine 10 mg Tablet PO (08:17)
[2020-10-03] MEDS: citalopram 20 mg Tablet 40 MG PO (08:17)
[2020-10-03] MEDS: FUROsemide 40 mg Tablet PO (08:18)
[2020-10-03 12:43] LABS: ABG PCO2 38.1 mmHg (35-45); ABG PH Result 7.44 (7.35-7.45); Alveolar-Arterial Oxygen Gradi 12.3 mmHg (5-10); Arterial Blood Gas Hematocrit 34.9 % (42-52); Base Excess ABG 12.5 mmol/L (-2.0-2.0); Blood Gas Allen Test Pos; Blood Gas Operator Identificat MONRO; Blood Gas Sample Site Radial, left; Blood Gas Sample Type Arterial; Carboxyhemoglobin 0.6 %THgb (0.4-20.1); HCO3 ABG 35.5 mmol/L (22-26); HGB O2 Sat 98.3 % (95-100); Methemoglobin 0.5 % (0.4-1.5); Oxygen Device OXY MASK; Oxygen Saturation ABG 99.4; Potassium Level - ABG 6.3 mmol/L (3.5-5.0); Total Hemoglobin 11.4 g/dL (14-18)
[2020-10-03] MEDS: levothyroxine 100 mcg SDV 60 MCG IVP (14:00)
--- NOTE | 2020-10-03 21:22 | PM.PN ---
Subjective Subjective: Interval history: In the morning awake, alert, localizing, slightly agitated. In the afternoon, however, again episode of lethargy. Withdrawing to pain, localizing, but very lethargic, with some asterixis-like twitches. Vitals/I&O/Wt Last Vital Signs Temp 97.8 F 10/03/20 18:50 Pulse 71 10/03/20 19:45 Resp 18 10/03/20 19:40 BP 125/71 10/03/20 18:50 Pulse Ox 92 10/03/20 19:40 10/03/20 10/03/20 10/03/20 06:59 14:59 22:59 Intake Total 350 / 920 170 / 170 Output Total 200 / 1550 440 / 440 550 / 990 Balance 150 / -630 -270 / -270 -550 / -820 Weight last 48 hrs Weight 92.306 kg Weight 92.986 kg Weight 86.999 kg Physical Exam Const: COMMON NORMALS: no acute distress and alert; negative for patient oriented x3 GENERAL APPEARANCE: comfortable ORIENTATION/CONSCIOUSNESS: Yes awake OTHER: Lethargic. With asterixis-like twitches. Withdrawing and localizing to pain, but otherwise not waking up. HENMT: COMMON NORMALS: oropharynx normal Neck/C-Spine: COMMON NORMALS: no JVD Resp: COMMON NORMALS: normal respiratory effort AUSCULTATION: rhonchi (Better) and no wheezes Cardio: COMMON NORMALS: no JVD, regular rhythm, S1 normal heart sound present, S2 normal heart sound present and No murmurs present (Cardio) RHYTHM: regular rhythm HEART SOUNDS: S1 normal heart sound present and S2 normal heart sound present GI: COMMON NORMALS: Normal to inspection, nondistended, normoactive bowel sounds present, Soft to palpation and non-tender PALPATION: Yes Soft to palpation Extremity: COMMON NORMALS: no joint enlargement and no pedal edema Neuro: COMMON NORMALS: moves all extremities; negative for patient oriented x3 SENSORIUM/ORIENTATION: Yes alert Skin: COMMON NORMALS: no rashes or lesions noted GENERAL SKIN EXAM: no rashes or lesions noted Data : 10/03/20 04:53 10/03/20 04:53 A&P Assessment and plan (1) Acute respiratory failure with hypoxia and hypercapnia: Today plan was for discharge, however, again episodes of lethargy with some asterixis. Restarted on BiPAP. Subsequently again awake. Will request overnight pulse oximetry. Overall hypercapnia is doing better. He does appear to become hypercapnic whenever he falls asleep, and this appears to require BiPAP with sleeping or napping. We will try to get this arranged for him. Avoid hyperoxia. Continue treatment of COPD exacerbation. Today he overall sounds better. Will taper down steroid further to 20 mg prednisone daily. Change antibiotics to Levaquin. Transition to oral levothyroxine. Maintain aspiration precautions. For now hold additional Lasix. Monitor. Reevaluate volume status. Status: Acute Additional A&P Information UTI: Pseudomonas. Change antibiotics to Levaquin. Attestations Medical Necessity Statement*: Continue admission for assessment management of episodes of encephalopathy, lethargy, hypercapnia, treatment of COPD exacerbation, pneumonia, UTI, in a gentleman unable to communicate with advanced dementia at risk of recurrent encephalopathy, hypercapneic respiratory failure. Coding Level of Care Code Acute Trans Router for Gio Monahan Diagnoses Acute respiratory failure with hypoxia and hypercapnia J96.01; J96.02
[2020-10-03] MEDS: OLANZapine 5 mg TABLET PO (22:05)
[2020-10-03] MEDS: famotidine 20 mg Tablet PO (22:05)
[2020-10-04] VITALS (18 sets, daily range): BP systolic 103–147; BP diastolic 66–81; PULSE 45–70; RESP 15–18; TEMP 36.3–36.6; O2SAT 86–99
[2020-10-04] MEDS: enoxaparin 40 mg/0.4 mL Syringe SUBCUT (03:59)
[2020-10-04] MEDS: levoFLOXacin 750 mg Tablet PO (05:06)
[2020-10-04 05:37] LABS: Eosinophils % 0.5 %; Hematocrit 34.4 % (42.0-52.0); Hemoglobin 10.4 g/dL (11.7-16.6); Lymphocytes # 0.4 10^3/uL (0.8-4.8); Lymphocytes % 10.2 %; Mean Corpuscular HGB Conc 30.2 g/dL (30.0-36.0); Mean Corpuscular Hemoglobin 31.6 pg (28.0-34.0); Mean Corpuscular Volume 104.6 fL (80-94); Mean Platelet Volume 10.6 fL (7.4-10.4); Monocytes # 0.4 10^3/uL (0.2-0.9); Monocytes % 9.9 %; Neutrophils # 3.08 10^3/uL (1.8-7.7); Neutrophils % 78.6 %; Nucleated Red Blood Cells % 0 %; Platelet Count 133 10^3/cmm (130-400); Red Blood Count 3.29 10^6/uL (4.1-5.3); Red Cell Distribution Width 16.6 % (12.1-15.1); White Blood Count 3.9 10^3/uL (4.0-10.0)
[2020-10-04 06:01] LABS: Alanine Aminotransferase 51 U/L (0-41); Albumin Level 2.8 g/dL (3.5-5.2); Alkaline Phosphatase 59 IU/L (40-130); Anion Gap 7.5 (5-19); Aspartate Amino Transferase 40 U/L (0-40); Blood Urea Nitrogen 22 mg/dL (6-20); Calcium 8.1 mg/dL (8.5-10.5); Carbon Dioxide 36 mmol/L (22-29); Chloride 108 mmol/L (98-107); Globulin 3.7 g/dL (1.3-4.6); Glomerular Filtration Rate 98.9 mL/min (90-130); Glucose 78 mg/dL (65-115); Osmolality Calculated 308 mOsm/kg (285-295); Potassium 3.5 mmol/L (3.5-5.1); Sodium 148 mmol/L (136-145); Total Bilirubin 0.4 mg/dL (0.15-1.2); Total Protein 6.5 g/dL (6.6-8.7)
[2020-10-04] MEDS: ipratropium-albuterol 3 mL Neb INHALATION ×3 (08:30→16:02)
[2020-10-04] MEDS: loratadine 10 mg Tablet PO (10:40)
[2020-10-04] MEDS: levothyroxine 112 mcg Tablet PO (10:40)
[2020-10-04] MEDS: citalopram 20 mg Tablet 40 MG PO (10:40)
[2020-10-04] MEDS: donepezil 5 MG Tablet PO (10:40)
[2020-10-04] MEDS: predniSONE 20 mg Tablet PO (10:40)
[2020-10-04] MEDS: famotidine 20 mg Tablet PO (10:42)
--- NOTE | 2020-10-04 10:42 | PC.NURSE ---
Med pass Delayed d/t being in other pt's room with PRNs.
--- NOTE | 2020-10-04 22:32 | P.DS_ITS ---
Discharge Providers Date of Admission: 09/30/20 01:12 Date of Discharge: October 04, 2020 Attending Provider at Admission: Gerard Henderson MD Attending Provider at Discharge: Geovanni Osborn Primary Care Provider: Jimmy Gomez MD Diagnoses at Discharge Discharge Diagnosis (1) Acute respiratory failure with hypoxia and hypercapnia: Status: Acute (2) UTI (urinary tract infection): Status: Acute Reason for Visit Reason for Visit: CHF Hospital Course Hospital Course 60-year-old gentleman with Down syndrome, early erythematous dementia, with progressive functional and cognitive decline over the last 6 months, was a dmitted due to lethargy, with noted acute respiratory failure with hypoxia and hypercapnia on presentation, requiring BiPAP support, started on treatments for COPD distribution, pneumonia, initially worsening despite BiPAP support, but subsequently gradually improved. Also with noted urinary tract infection. Treated with Zosyn and vancomycin initially. Subsequently transition to quinolone. Urine culture growing Pseudomonas which was sensitive. During hospitalization several times noted with recurrent hypercapnic encephalopathy. Appears has tendency to retain CO2 anytime he is asleep or napping. Improving with BiPAP. Hypoxic on overnight pulse oximetry. BiPAP with oxygen bleed through requested for him on discharge due to COPD, OHS, recurrent hypercapnia while asleep. He otherwise continues on chronic oxygen support. UTI he is also referred for sleep study to assess for additional central sleep apnea as he was noted with irregular respirations during lethargy episodes. Overall he has quite significantly improved. Most of the day when awake remained energetic, vocalizing excitedly. Appeared comfortable. He does not communicate or follow any commands. With noted decreased levels of free T3 and free T4. TSH normal. While in hospital is receiving levothyroxine by IV until more stable oral intake due to concern regarding additional contribution of hypothyroidism to his symptoms. Levothyroxine dose increased slightly to 125 mcg. Please follow-up thyroid function. Physical Exam Const: COMMON NORMALS: no acute distress and alert; negative for patient oriented x3 GENERAL APPEARANCE: comfortable ORIENTATION/CONSCIOUSNESS: Yes awake OTHER: Awake, alert, in good spirits. Comfortable. Smiling and happily vocalizing. HENMT: COMMON NORMALS: oropharynx normal Neck/C-Spine: COMMON NORMALS: no JVD Resp: COMMON NORMALS: normal respiratory effort AUSCULTATION: no rhonchi and no wheezes OTHER: Better air entry. Cardio: COMMON NORMALS: no JVD, regular rhythm, S1 normal heart sound present, S2 normal heart sound present and No murmurs present (Cardio) RHYTHM: regular rhythm HEART SOUNDS: S1 normal heart sound present and S2 normal heart sound present GI: COMMON NORMALS: Normal to inspection, nondistended, normoactive bowel sounds present, Soft to palpation and non-tender PALPATION: Yes Soft to palpation Extremity: COMMON NORMALS: no joint enlargement and no pedal edema Neuro: COMMON NORMALS: moves all extremities; negative for patient oriented x3 SENSORIUM/ORIENTATION: Yes alert Skin: COMMON NORMALS: no rashes or lesions noted GENERAL SKIN EXAM: no rashes or lesions noted Discharge Data Data Completed and Pending: Completed Studies During Hospitalization Category Date Time Status XR chest 1V des ble [id number] Routine Exams 10/02/20 07:53 Completed XR chest 1V des ble [id number] Stat Exams 09/29/20 23:25 Completed Pending at discharge Category Date Time Status Blood Culture Sta t Lab 09/29/20 06:15 Results Labs from last 24 hours 10/04/20 10/04/20 04:51 04:51 WBC 3.9 L RBC 3.29 L Hgb 10.4 L Hct 34.4 L MCV 104.6 H MCH 31.6 MCHC 30.2 RDW 16.6 H Plt Count 133 MPV 10.6 H Neut % (Auto) 78.6 Lymph % (Auto) 10.2 [place] % (Auto) 9.9 Eos % (Auto) 0.5 Baso % (Auto) 0.0 Neut # (Auto) 3.08 Lymph # (Auto) 0.4 L [place] # (Auto) 0.4 Eos # (Auto) 0.0 Baso # (Auto) 0.0 Nucleated RBC % (a uto) 0 Nucleated RBCs # 0.0 Sodium 148 H Potassium 3.5 Chloride 108 H Carbon Dioxide 36 H Anion Gap 7.5 BUN 22 H Creatinine 0.8 GFR Calculation 98.9 Glucose 78 Calculated Osmolal ity 308 H Calcium 8.1 L Total Bilirubin 0.4 AST 40 ALT 51 H Alkaline Phosphata se 59 Total Protein 6.5 L Albumin 2.8 L Globulin 3.7 Vitals: Last Vital Signs Temp 97.8 F 10/04/20 15:28 Pulse 70 10/04/20 17:00 Resp 18 10/04/20 16:06 BP 114/76 10/04/20 15:28 Pulse Ox 92 10/04/20 16:06 Discharge Plan Discharge Patient Disposition: Home Condition: Fair Prescriptions: New prednisone 10 mg tablet 20 mg PO DAILY Qty: 7 RF: 0 levofloxacin 750 mg Tablet 750 mg PO DAILY@0600 Qty: 5 RF: 0 levothyroxine 125 mcg capsule 125 mcg PO DAILY Qty: 30 RF: 0 Continued olanzapine [Zyprexa] 5 mg tablet 5 mg PO BEDTIME@1800 RF: 0 carbamide peroxide [Debrox] 6.5 % drops 5 drop EAR-BOTH DAILY RF: 0 citalopram [Celexa] 40 mg tablet 40 mg PO DAILY@08 RF: 0 donepezil [Aricept] 5 mg tablet 5 mg PO DAILY@0800 RF: 0 bismuth subsalicylate 525 mg/15 mL suspension 525 mg PO Q30M PRN (Reason: DIARRHEA/STOMACH RELIEF) RF: 0 magnesium hydroxide [Milk Of Magnesia Concentrated] 2,400 mg/10 mL suspension 30 ml PO DAILY PRN (Reason: Constipation) RF: 0 olanzapine [Zyprexa] 2.5 mg tablet 5 mg PO Q6H PRN (Reason: paranoia) RF: 0 albuterol sulfate 2.5 mg /3 mL (0.083 %) solution for nebulization 2.5 mg INHALATION Q6H PRN (Reason: Shortness Of Breath) RF: 0 loratadine [Claritin] 10 mg tablet 10 mg PO DAILY@0800 RF: 0 (DME) Urinary Leg Bag Kit See Rx Instructions .ROUTE .MEDSUPPLY Qty: 1 RF: 12 alum-mag hydroxide-simeth [Mylanta Maximum Strength] 400-400-40 mg/5 mL suspension 30 ml PO Q4H PRN (Reason: UPSET STOMACH/GAS RELIEF) RF: 0 (DME) depends incontience diapers large See Rx Instructions .Route .MEDSUPPLY Qty: 60 RF: 6 furosemide 40 mg Tablet 40 mg PO DAILY@0800 RF: 0 Tylenol 325 mg Tablet 650 mg PO Q6H PRN (Reason: Pain) RF: 0 guaifenesin 100 mg/5 mL Liquid 200 mg PO Q4H PRN (Reason: Cough) RF: 0 furosemide 20 mg Tablet 10 mg PO DAILY@0800 RF: 0 ketoconazole 2 % Cream 1 applic TOPICAL BID RF: 0 Neosporin (hbm-yqc-lvbay) 3.5-400-5,000 pa-mipr-lfct Ointment In Packet See Rx Instructions .ROUTE .COMPLEX RF: 0 Discontinued levothyroxine 112 mcg capsule 112 mcg PO DAILY Qty: 30 RF: 1 Discharge Orders: Discharge Order (Routine); Ordered 10/04/20 Ordered By: Geovanni Osborn Other Ambulatory Orders: DME: BIPAP (Order) Location: None Selected Ordered By: Geovanni Osborn Sleep Study/Titration (Routine) Timeframe: 2 Days Location: None Selected Ordered By: Geovanni Osborn Referrals: Jimmy Gomez MD [Primary Care Provider] - 4-7 days Discharge Diet: Usual diet Discharge Activity: Resume usual activity and Oxygen as instructed Patient Instructions: Acute Respiratory Distress Syndrome (DC), How to Care for Your Suprapubic Catheter (DC) Activity Restrictions/Additional Instructions: Levothyroxine dose adjusted slightly up to 125 mcg. Please follow-up thyroid studies in 3 weeks. Please maintain BiPAP on any time sleeping or napping. Please complete course of antibiotic for pneumonia, urinary tract infection (Pseudomonas). Reposition frequently to prevent pressure ulcers. Maintain aspiration precautions. Discharge Attestations Time Spent in Discharge Care*: greater than 30 min Quality Metrics Clinical Quality Measures During this hospital stay, did patient experience: None Coding Level of Care Code Acute Chg FW DC note Diagnoses Acute respiratory failure with hypoxia and hypercapnia J96.01; J96.02 UTI (urinary tract infection) N39.0
== END 2020-10-04 17:25 | disposition home or self-care (01) | DRG 189 ==
LOC: ER 23:53 → ICU 09-30 01:33 → MEDSURG 10-01 15:50
PROVIDERS: Nurse Practitioner Family; Admitting Provider Family Medicine; Emergency Provider Emergency Medicine; PCP Internal Medicine; Visit Provider Internal Medicine
DX: J96.02 Acute respiratory failure with hypercapnia (principal); J69.0 Pneumonitis due to inhalation of food and vomit; T83.518A Infection and inflammatory reaction due to other urinary catheter, initial encounter; G93.49 Other encephalopathy; J44.1 Chronic obstructive pulmonary disease with (acute) exacerbation; J44.0 Chronic obstructive pulmonary disease with (acute) lower respiratory infection; J96.01 Acute respiratory failure with hypoxia; Q90.9 Down syndrome, unspecified; G30.0 Alzheimer's disease with early onset; F02.80 Dementia in other diseases classified elsewhere, unspecified severity, without behavioral disturbance, psychotic disturbance, mood disturbance, and anxiety; Z86.718 Personal history of other venous thrombosis and embolism; E03.9 Hypothyroidism, unspecified; Z99.3 Dependence on wheelchair; Z66 Do not resuscitate; F31.9 Bipolar disorder, unspecified; Z79.01 Long term (current) use of anticoagulants; M24.312 Pathological dislocation of left shoulder, not elsewhere classified; M24.311 Pathological dislocation of right shoulder, not elsewhere classified; Z96.0 Presence of urogenital implants; Y73.1 Therapeutic (nonsurgical) and rehabilitative gastroenterology and urology devices associated with adverse incidents; Z79.51 Long term (current) use of inhaled steroids; B96.5 Pseudomonas (aeruginosa) (mallei) (pseudomallei) as the cause of diseases classified elsewhere
CPT/HCPCS: 36415; 36600; 71045; 80051; 80053; 80061; 80202; 82330; 82550; 82803; 82805; 83605; 83735; 83880; 84100; 84145; 84439; 84443; 84481; 84484; 85025; 85610; 86140; 87040; 87077; 87086; 87186; 92610; 93005; 94640; 94660; 94664; 94762; 96365; 96372; 96375; 99291; J0696; J1200; J1650; J1940; J2543; J2920; J2930; J3370; J3490; J7512; J7611

== ENCOUNTER 2020-10-11 10:03 | Inpatient (IN) | payer MEDICARE, MEDICAID, SELFPAY ==
[2020-10-11] VITALS (36 sets, daily range): BP systolic 83–132; BP diastolic 50–95; PULSE 79–131; RESP 6–38; TEMP 36.9; O2SAT 83–100; BMI 30.3
--- NOTE | 2020-10-11 10:17 | CT_ITS ---
WS: [id number] CT HEAD NONCONTRAST HISTORY: mental status change TECHNIQUE: Contiguous axial imaging performed through the brain in 2.5 mm imaging. Bone and soft tiss ue windows. Sagittal and coronal reformats reviewed. All CT scans at [facility] use at ast one of these dose optimization techniques: automated exposure control; mA and/or kV adjustment pe r patient size (includes targeted exams where dose is matched to clinical indication); or iterative r econstruction. DLP: 928.64 mGy.cm COMPARISON: 04/29/2019 No acute intracranial hemorrhage, midline shift or mass effect. Moderate atrophy and chronic ischemic disease. Benign bilateral basal ganglia calcifications. Ventricles: Normal size with no hydrocephalus. Mild intracranial carotid atherosclerosis. Paranasal sinuses: As visualized are clear. Mastoid air cells: Congenitally small mastoid air cells. Increased soft tissue along the internal aud itory canals similar to prior studies. Calvarium and scalp: Skull is intact with no soft tissue edema or swelling. CT/CT head wo con* [id number] IMPRESSION: 1. Quality limited by motion artifact. 2. No acute intracranial hemorrhage. 3. Mild atrophy and chronic ischemic disease.
--- NOTE | 2020-10-11 10:18 | ECG_ITS ---
[facility] Test Date: 2020-10-11 Pat Name: Nicanor Hung Department: Room: ICU09 Gender: Male Cement Patcher: : [id number] Requested By: Teto Mcdonnell Order Number: [id number] Terrell MD: Celeste Emerson M.D. Measurements Intervals Monument Rate: 90 P: 37 LA: 137 QRS: -22 QRSD: 88 T: 18 QT: 364 QTc: 448 Interpretive Statements SINUS RHYTHM BORDERLINE LEFT AXIS DEVIATION [QRS AXIS < -20] LOW QRS VOLTAGE IN PRECORDIAL LEADS [QRS DEFLECTION < 1.0 mV IN CHEST LEADS] POSSIBLE RIGHT VENTRICULAR CONDUCTION DELAY [RSR (QR) IN V1/V2] Compared to ECG 09/30/2020 04:24:55 Incomplete right bundle-branch block no longer present Electronically Signed On 10-11-2020 18:11:48 CDT by Celeste Emerson M.D. [id number]
--- NOTE | 2020-10-11 10:37 | CT_ITS ---
WS: [id number] CT CHEST ANGIOGRAPHY WITH REFORMATS HISTORY: cough, possible aspiration, hemoptysis TECHNIQUE: Contiguous axial images are obtained through the chest during arterial injection of intrav enous contrast. Images are reconstructed to evaluate the pulmonary arteries. MIP imaging also reviewe d. All CT scans at [facility] use at least one of these dose optimization techniques: aut omated exposure control; mA and/or kV adjustment per patient size (includes targeted exams where dose is matched to clinical indication); or iterative reconstruction. CONTRAST: Omnipaque 350; 95 mL IV. DLP: 554.68 mGy.cm COMPARISON: 04/23/2020 Significantly limited evaluation of the pulmonary artery and lungs because of motion artifact. There is no large central pulmonary embolism. Beyond the lobar branches the opacification is suboptimal. He art size is enlarged. No pericardial effusion. Aorta is normal size. Focal areas of consolidation consistent with pneumonia. Most significant in the LEFT upper and LEFT l ower lobes and to a lesser extent in the RIGHT upper and RIGHT lower lobes. Consistent with pneumonia . There is diffuse esophageal wall thickening. Soft tissue thickening within the esophagus is greates t just above the paulo. Limited evaluation for lymphadenopathy. LEFT renal parapelvic cyst. No adrenal mass. Thoracolumbar scoliosis. CT/CT angio chest PE protcl [id number] IMPRESSION: 1. Pulmonary artery evaluation is significantly limited by motion artifact. No large central pulmonary embolism. 2. Multilobar bilateral pneumonia. Consider aspiration as an etiology. The mos t significant consolidations in the LEFT upper lower lobes. 3. Diffuse esophageal wall thickening, greatest above the paulo. Consider eso phagitis.
--- NOTE | 2020-10-11 10:57 | XR_ITS ---
WS: [id number] Exam: XR chest 1V portable [id number] Date/Time of Exam: 10/11/2020 10:57 AM Reason For Exam: possible aspiration Comparison 10/02/2020. Bilateral perihilar infiltrates are noted which are most likely predominantly chronic in nature. The lungs are fully expanded. No pleural effusions. Mild cardiac enlargement. The mediastinum and osseous thorax are intact. XR/XR chest 1V portable [id number] IMPRESSION: 1. Bilateral perihilar infiltrates which appear to be mostly chronic in nature.
[2020-10-11 10:59] LABS: Basophils # 0.1 10^3/uL (0.0-0.1); Basophils % 0.4 %; Eosinophils % 0.3 %; Hematocrit 42.6 % (42.0-52.0); Hemoglobin 12.9 g/dL (11.7-16.6); Lymphocytes # 0.6 10^3/uL (0.8-4.8); Lymphocytes % 4.7 %; Mean Corpuscular HGB Conc 30.3 g/dL (30.0-36.0); Mean Corpuscular Volume 105.7 fL (80-94); Mean Platelet Volume 10.1 fL (7.4-10.4); Monocytes # 0.9 10^3/uL (0.2-0.9); Monocytes % 7.7 %; Neutrophils # 10.28 10^3/uL (1.8-7.7); Nucleated Red Blood Cells % 0 %; Platelet Count 168 10^3/cmm (130-400); Red Blood Count 4.03 10^6/uL (4.1-5.3); Red Cell Distribution Width 16.8 % (12.1-15.1)
[2020-10-11 11:09] LABS: Troponin(5th) Baseline 48 ng/L (0-15)
[2020-10-11] MEDS: iohexol 350 mg/mL 100 mL Btl IV (11:17)
[2020-10-11 11:18] LABS: ABG PH Result 7.34 (7.35-7.45); Alveolar-Arterial Oxygen Gradi 48.5 mmHg (5-10); Arterial Blood Gas Hematocrit 37.4 % (42-52); Base Excess ABG 13.4 mmol/L (-2.0-2.0); Blood Gas Allen Test Pos; Blood Gas Sample Site Radial, right; Blood Gas Sample Type Arterial; Carboxyhemoglobin 1.1 %THgb (0.4-20.1); HCO3 ABG 42.4 mmol/L (22-26); HGB O2 Sat 98.9 % (95-100); Ionized Calcium Level - ABG 1.2 mmol/L (1.1-1.4); Methemoglobin 0.3 % (0.4-1.5); Oxygen Device NRB; Oxygen Saturation ABG > 100.0; Potassium Level - ABG 4.2 mmol/L (3.5-5.0); Total Hemoglobin 12.2 g/dL (14-18)
[2020-10-11 11:19] LABS: ABG PCO2 78.3 mmHg (35-45)
[2020-10-11 11:19] LABS: Alanine Aminotransferase 20 U/L (0-41); Albumin Level 3.2 g/dL (3.5-5.2); Alkaline Phosphatase 73 IU/L (40-130); Anion Gap 9.3 (5-19); Aspartate Amino Transferase 19 U/L (0-40); Blood Urea Nitrogen 20 mg/dL (6-20); Calcium 8.1 mg/dL (8.5-10.5); Carbon Dioxide 40 mmol/L (22-29); Chloride 99 mmol/L (98-107); Globulin 3.5 g/dL (1.3-4.6); Glomerular Filtration Rate 86.4 mL/min (90-130); Glucose 100 mg/dL (65-115); NT Pro B Type Natriuretic Pept 115 pg/mL (0-125); Osmolality Calculated 301 mOsm/kg (285-295); Potassium 4.3 mmol/L (3.5-5.1); Sodium 144 mmol/L (136-145); Total Bilirubin 0.5 mg/dL (0.15-1.2); Total Protein 6.7 g/dL (6.6-8.7)
--- NOTE | 2020-10-11 11:30 | ED_ITS ---
HPI - SOB/Dyspnea General: Chief Complaint: Shortness of Breath/Dyspnea Stated Complaint: possible aspiration/ change in mental status Time Seen by Provider: 10/11/20 10:19 History of Present Illness: HPI Narrative: 60-year-old male with a history of Down syndrome who was brought in by EMS with altered mental status and what appeared to be vomitus around the mouth. Patient usually wears CPAP. Patient was hospitalized on September 30 and discharged home on October 04 with pneumonia he also grew out Pseudomonas from the urine. Caregivers question if the patient has some heart failure but he has never been formally diagnosed. He is completely nonresponsive in the emergency room caregiver state he is a Do Not Recussitate. Previous hospitalization with Respiratory failure he required BiPAP. MD elicited complaint: shortness of breath and cough Pertinent past history: COPD Onset (ago): hour(s) Context: choking/aspiration Timing: constant Severity: severe Known history of: COPD Associated symptoms: Reports other; Deny abdominal pain, chest pain, fever(s), nausea, orthopnea or vomiting Treatment prior to arrival: oxygen Review of Systems Const: Denies: fever(s), chills, body aches, change in appetite, fatigue or malaise ENMT: Denies: throat pain, ear or mastoid pain, nasal discharge or nasal congestion Card: Denies: chest pain, edema, dyspnea on exertion or orthopnea Resp: Denies: dyspnea, productive cough or non-productive cough GI: Denies: abdominal pain, nausea, vomiting, hematemesis, coffee ground emesis, diarrhea, constipation, bloating, hematochezia or melena : Denies: flank pain, dysuria, urinary frequency or urinary urgency Skin/Breast: Denies: rash or pruritus PFSH ED PFSH: Medical History (Updated 10/12/20 @ 12:42 by Chandler Hernandez DO) Acute respiratory failure with hypoxia and hypercapnia Alzheimers disease Bipolar 1 disorder Chronic anticoagulation DVT (deep venous thrombosis) Hypothyroidism, unspecified Hypoxemia Pathological dislocation of both shoulder joints Suprapubic catheter Traumatic injury of urethra Trisomy 21 Social History Smoking and tobacco status: never smoked Alcohol intake: never Housing: Assisted Living Facility Marital status: Single Current occupational status: disabled History of recent travel: No Physical Exam HENMT: COMMON NORMALS: normocephalic and atraumatic HEAD & SCALP: normocephalic and atraumatic Resp: AUSCULTATION: rhonchi, wheezes and diminished lung sounds Cardio: RATE: tachycardic GI: COMMON NORMALS: Soft to palpation and No hepatosplenomegaly present AUSCULTATION: Yes normoactive bowel sounds PALPATION: Yes Soft to palpation, No Tenderness to palpation present (GI), No Guarding due to palpation present (GI) and Yes No hepatosplenomegaly present Course Vital Signs: Vital signs: Vital Signs Temperature 97.7 F 10/12/20 07:43 Pulse Rate 76 10/12/20 12:00 Respiratory Rate 18 10/12/20 12:00 Blood Pressure 88/60 10/12/20 12:00 Pulse Oximetry 98 10/12/20 12:00 MDM - SOB/Dyspnea MDM Narrative: Medical decision making narrative: Patient acute respiratory failure he is improving with the BiPAP start him on antibiotics because Dr. Ellis will admit. Lab Data: Labs: Lab Results 10/11/20 10/11/20 10/11/20 Range/Units 09:44 09:44 09:44 WBC 12.0 H (4.0-10.0) 10^3/ uL RBC 4.03 L (4.1-5.3) 10^6/u L Hgb 12.9 (11.7-16.6) g/dL Hct 42.6 (42.0-52.0) % MCV 105.7 H (80-94) fL MCH 32.0 (28.0-34.0) pg MCHC 30.3 (30.0-36.0) g/dL RDW 16.8 H (12.1-15.1) % Plt Count 168 (130-400) 10^3/c mm MPV 10.1 (7.4-10.4) fL Neut % (Auto) 86.0 % Lymph % (Auto) 4.7 % Ball[place] % (Auto) 7.7 % Eos % (Auto) 0.3 % Baso % (Auto) 0.4 % Neut # (Auto) 10.28 H (1.8-7.7) 10^3/u L Lymph # (Auto) 0.6 L (0.8-4.8) 10^3/u L Ball[place] # (Auto) 0.9 (0.2-0.9) 10^3/u L Eos # (Auto) 0.0 (0.0-0.8) 10^3/u L Baso # (Auto) 0.1 (0.0-0.1) 10^3/u L Nucleated RBC % (a uto) 0 % Nucleated RBCs # 0.0 /100WBC Specimen Type Sample Site ABG pH (7.35-7.45) ABG pCO2 (35-45) mmHg ABG pO2 (80.0-100.0) mmH g ABG HCO3 (22-26) mmol/L ABG O2 Saturation ABG Base Excess (-2.0-2.0) mmol/ L Barry Test A-a O2 Gradient (5-10) mmHg Hematocrit (42-52) % Hgb O2 Saturation (95-100) % Carboxyhemoglobin (0.4-20.1) %THgb Methemoglobin (0.4-1.5) % Total Hemoglobin (14-18) g/dL Ionized Calcium (1.1-1.4) mmol/L O2 Delivery Device FiO2 % Bottle [employer] Supervisor ID Sodium 144 (136-145) mmol/L Potassium 4.3 (3.5-5.1) mmol/L Chloride 99 (98-107) mmol/L Carbon Dioxide 40 H (22-29) mmol/L Anion Gap 9.3 (5-19) BUN 20 (6-20) mg/dL Creatinine 0.9 (0.7-1.2) mg/dL GFR Calculation 86.4 L (90-130) mL/min Glucose 100 (65-115) mg/dL Calculated Osmolal ity 301 H (285-295) mOsm/k g Lactic Acid (0.5-2.2) mmol/L Calcium 8.1 L (8.5-10.5) mg/dL Magnesium (1.7-2.3) mg/dL Total Bilirubin 0.5 (0.15-1.2) mg/dL AST 19 (0-40) U/L ALT 20 (0-41) U/L Alkaline Phosphata se 73 (40-130) IU/L Troponin T Baselin e 48 H (0-15) ng/L NT-Pro-B Natriuret Pep 115 (0-125) pg/mL Total Protein 6.7 (6.6-8.7) g/dL Albumin 3.2 L (3.5-5.2) g/dL Globulin 3.5 (1.3-4.6) g/dL 10/11/20 10/11/20 10/11/20 Range/Units 09:44 09:46 11:08 WBC (4.0-10.0) 10^3/ uL RBC (4.1-5.3) 10^6/u L Hgb (11.7-16.6) g/dL Hct (42.0-52.0) % MCV (80-94) fL MCH (28.0-34.0) pg MCHC (30.0-36.0) g/dL RDW (12.1-15.1) % Plt Count (130-400) 10^3/c mm MPV (7.4-10.4) fL Neut % (Auto) % Lymph % (Auto) % Ballard % (Auto) % Eos % (Auto) % Baso % (Auto) % Neut # (Auto) (1.8-7.7) 10^3/u L Lymph # (Auto) (0.8-4.8) 10^3/u L Ballard # (Auto) (0.2-0.9) 10^3/u L Eos # (Auto) (0.0-0.8) 10^3/u L Baso # (Auto) (0.0-0.1) 10^3/u L Nucleated RBC % (a uto) % Nucleated RBCs # /100WBC Specimen Type Arterial Sample Site Radial, right ABG pH 7.34 L (7.35-7.45) ABG pCO2 78.3 H* (35-45) mmHg ABG pO2 247.0 H (80.0-100.0) mmH g ABG HCO3 42.4 H (22-26) mmol/L ABG O2 Saturation > 100.0 ABG Base Excess 13.4 H (-2.0-2.0) mmol/ L Barry Test Pos A-a O2 Gradient 48.5 H (5-10) mmHg Hematocrit 37.4 L (42-52) % Hgb O2 Saturation 98.9 (95-100) % Carboxyhemoglobin 1.1 (0.4-20.1) %THgb Methemoglobin 0.3 L (0.4-1.5) % Total Hemoglobin 12.2 L (14-18) g/dL Ionized Calcium 1.2 (1.1-1.4) mmol/L O2 Delivery Device Nrb FiO2 100.0 % [employer] Supervisor ID [id number] Sodium 144.0 H (136-145) mmol/L Potassium 4.2 (3.5-5.1) mmol/L Chloride (98-107) mmol/L Carbon Dioxide (22-29) mmol/L Anion Gap (5-19) BUN (6-20) mg/dL Creatinine (0.7-1.2) mg/dL GFR Calculation (90-130) mL/min Glucose 93.0 (65-115) mg/dL Calculated Osmolal ity (285-295) mOsm/k g Lactic Acid (0.5-2.2) mmol/L Calcium (8.5-10.5) mg/dL Magnesium 2.4 H (1.7-2.3) mg/dL Total Bilirubin (0.15-1.2) mg/dL AST (0-40) U/L ALT (0-41) U/L Alkaline Phosphata se (40-130) IU/L Troponin T Baselin e (0-15) ng/L NT-Pro-B Natriuret Pep 115 (0-125) pg/mL Total Protein (6.6-8.7) g/dL Albumin (3.5-5.2) g/dL Globulin (1.3-4.6) g/dL 10/11/20 Range/Units 11:32 WBC (4.0-10.0) 10^3/ uL RBC (4.1-5.3) 10^6/u L Hgb (11.7-16.6) g/dL Hct (42.0-52.0) % MCV (80-94) fL MCH (28.0-34.0) pg MCHC (30.0-36.0) g/dL RDW (12.1-15.1) % Plt Count (130-400) 10^3/c mm MPV (7.4-10.4) fL Neut % (Auto) % Lymph % (Auto) % Ballard % (Auto) % Eos % (Auto) % Baso % (Auto) % Neut # (Auto) (1.8-7.7) 10^3/u L Lymph # (Auto) (0.8-4.8) 10^3/u L Ballard # (Auto) (0.2-0.9) 10^3/u L Eos # (Auto) (0.0-0.8) 10^3/u L Baso # (Auto) (0.0-0.1) 10^3/u L Nucleated RBC % (a uto) % Nucleated RBCs # /100WBC Specimen Type Sample Site ABG pH (7.35-7.45) ABG pCO2 (35-45) mmHg ABG pO2 (80.0-100.0) mmH g ABG HCO3 (22-26) mmol/L ABG O2 Saturation ABG Base Excess (-2.0-2.0) mmol/ L Barry Test A-a O2 Gradient (5-10) mmHg Hematocrit (42-52) % Hgb O2 Saturation (95-100) % Carboxyhemoglobin (0.4-20.1) %THgb Methemoglobin (0.4-1.5) % Total Hemoglobin (14-18) g/dL Ionized Calcium (1.1-1.4) mmol/L O2 Delivery Device FiO2 % [employer] Supervisor ID Sodium (136-145) mmol/L Potassium (3.5-5.1) mmol/L Chloride (98-107) mmol/L Carbon Dioxide (22-29) mmol/L Anion Gap (5-19) BUN (6-20) mg/dL Creatinine (0.7-1.2) mg/dL GFR Calculation (90-130) mL/min Glucose (65-115) mg/dL Calculated Osmolal ity (285-295) mOsm/k g Lactic Acid 1.0 (0.5-2.2) mmol/L Calcium (8.5-10.5) mg/dL Magnesium (1.7-2.3) mg/dL Total Bilirubin (0.15-1.2) mg/dL AST (0-40) U/L ALT (0-41) U/L Alkaline Phosphata se (40-130) IU/L Troponin T Baselin e (0-15) ng/L NT-Pro-B Natriuret Pep (0-125) pg/mL Total Protein (6.6-8.7) g/dL Albumin (3.5-5.2) g/dL Globulin (1.3-4.6) g/dL Discharge Plan Discharge Patient Disposition: Admitted As Inpatient Admit Provider: Maritza Ellis Clinical Impression: Acute respiratory failure with hypoxia and hypercapnia, Trisomy 21, Aspiration pneumonia Condition: Stable Coding Level of Care Code ED First Coat Operator for Chg Fwd Exam Expanded Problem Focused
--- NOTE | 2020-10-11 12:18 | ECG_ITS ---
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 Measurements Intervals [place] Rate: 105 P: 35 SD: 116 QRS: -11 QRSD: 96 T: 24 QT: 349 QTc: 463 Interpretive Statements SINUS TACHYCARDIA WITH SHORT SD INTERVAL LOW QRS VOLTAGE IN PRECORDIAL LEADS [QRS DEFLECTION < 1.0 mV IN CHEST LEADS] INCOMPLETE RIGHT BUNDLE BRANCH BLOCK [90+ ms QRS DURATION, TERMINAL R IN V1/V2, 40+ ms S IN I/aVL/V4/V5/V6] MINIMAL ST DEPRESSION [0.025+ mV ST DEPRESSION] ABNORMAL RHYTHM ECG Compared to ECG 09/30/2020 04:24:55 Short SD interval now present ST (T wave) deviation now present Sinus rhythm no longer present Electronically Signed On 10-12-2020 0:08:37 CDT by Celeste Emerson M.D. [id number]
[2020-10-11 12:23] LABS: Troponin 5 2HR 50.92 ng/L (0-15); Troponin 5 2HR Delta 2.92 ABS# (0-10)
[2020-10-11] MEDS: FUROsemide 10 mg/mL SDV 10mL 60 MG IVP (12:23)
[2020-10-11] MEDS: sodium chloride 0.9% 1,000 ML 999 ML IV (12:28)
[2020-10-11] MEDS: levofloxacin-dextrose 5 % 750 MG/150 ML PREMIX 100 MG IV (12:28)
[2020-10-11] MEDS: piperacillin-tazobactam 3.375 GM in sodium chloride 0.9% (plus) 50 ML IV ×2 (12:30→19:01)
[2020-10-11 13:18] LABS: Bacteria Urine 1+ /hpf; Bilirubin Urine Neg (Negative); Blood Urine 3+ (Negative); Glucose Urine UA Norm (Normal); Ketones Urine Negative (Negative); Leukocyte Esterase Urine Negative (Negative); Mucus Urine TRACE /hpf; Nitrate Urine Negative (Negative); Protein Urine Trace (Negative); RBC Urine 80-100 /hpf (0-2); Squamous Epithelial Cell Urine 0-4 /hpf (0-5); Urine Appearance SL Hazy (CLEAR); Urine Color Yellow (Yellow); Urobilinogen Urine Norm (Negative); pH Urine 5 (5-7)
[2020-10-11 13:19] LABS: Add Urine Culture? Yes
[2020-10-11 13:24] LABS: Magnesium 2.4 mg/dL (1.7-2.3)
--- NOTE | 2020-10-11 15:52 | PC.NURSE ---
Patient was transferred to ICU from ER via bed. Patient was having spastic movements in all four limbs. Patient is non verbal. All belongings are at bedside. This nurse called [facility] and spoke to care companion to finish admission assessment.
--- NOTE | 2020-10-11 16:18 | ECG_ITS ---
[facility] Test Date: 2020-10-11 Pat Name: Nicanor Hung Department: Room: ICU09 Gender: Male Magistrate: : 1960 Requested By: Teto Mcdonnell Order Number: [id number] Terrell MD: Celeste Emerson M.D. Measurements Intervals [place] Rate: 101 P: 41 TN: 112 QRS: -4 QRSD: 86 T: 4 QT: 343 QTc: 445 Interpretive Statements SINUS TACHYCARDIA WITH SHORT TN INTERVAL WITH OCCASIONAL ECTOPIC PREMATURE COMPLEXES LOW QRS VOLTAGE IN PRECORDIAL LEADS [QRS DEFLECTION < 1.0 mV IN CHEST LEADS] POSSIBLE RIGHT VENTRICULAR CONDUCTION DELAY [RSR (QR) IN V1/V2] ABNORMAL RHYTHM ECG Compared to ECG 10/11/2020 12:56:57 Incomplete right bundle-branch block no longer present ST (T wave) deviation no longer present Electronically Signed On 10-12-2020 0:08:17 CDT by Celeste Emerson M.D. [id number]
[2020-10-11] MEDS: enoxaparin 40 mg/0.4 mL Syringe SUBCUT (16:32)
[2020-10-11 17:10] LABS: Troponin 5 6HR 49.04 ng/L (0-15); Troponin 5 6HR Delta 1.04 ng/L (0-12)
[2020-10-11 17:15] LABS: NT Pro B Type Natriuretic Pept 115 pg/mL (0-125)
--- NOTE | 2020-10-11 17:43 | P.HP_ITS ---
Providers/Chief Complaint Admitting Physician: Maritza Ellis MD Primary Care Provider: Jimmy Gomez MD Chief Complaint: possible aspiration/ change in mental status History of Present Illness Nicanor Hung is a 60 year old male 60-year-old gentleman with Down syndrome, early erythematous dementia, with progressive functional and cognitive decline over the last 6 months, was recently admitted due to lethargy, with noted acute respiratory failure with hypoxia and hypercapnia on presentation, requiring BiPAP support, started on treatments for COPD, pneumonia, initially worsening despite BiPAP support, but subsequently gradually improved. ents today after being noted to have aspiration episode at the long-term, vomitus noted in the bipap followed shortly after by hypoxic hypercapneic respiratory failure. History obtained by chart review and discussing with carlo MOSS non verbal Review of Systems General: Reports: ROS unobtainable due to medical condition Medications/Allergies Home Medications Medication Instructions Recorded Confirmed Last Taken Type bismuth subsalicylate 525 mg/15 mL 525 mg PO Q30M PRN 11/08/19 10/11/20 Unknown History oral suspension citalopram 40 mg tablet 40 mg PO DAILY@08 11/08/19 10/11/20 10/10/20 History donepezil 5 mg tablet 5 mg PO DAILY@0800 11/08/19 10/11/20 10/10/20 History magnesium hydroxide 2,400 mg/10 mL 30 ml PO DAILY PRN 11/08/19 10/11/20 Unknown History oral suspension olanzapine 5 mg tablet 5 mg PO BEDTIME@1999 PRN 11/08/19 10/11/20 10/10/20 History ketoconazole 1 applic TOPICAL BID@08,199912/17/19 10/11/20 10/10/20 History albuterol sulfate 2.5 mg INHALATION Q6H PRN 01/17/20 10/11/20 10/04/20 History olanzapine 2.5 mg tablet 5 mg PO Q6H PRN tab 01/17/20 10/11/20 Unknown History urinary bag #1 each 01/17/20 10/11/20 Unknown Rx loratadine 10 mg tablet 10 mg PO DAILY@0800 03/29/20 10/11/20 10/10/20 History aluminum-mag hydroxide-simethicone 30 ml PO Q4H PRN ml 06/17/20 10/11/20 Unknown History 400 mg-400 mg-40 mg/5 mL oral susp depends incontience diapers #60 ea 06/20/20 10/11/20 Unknown Rx acetaminophen [Tylenol] 650 mg PO Q6H PRN 09/30/20 10/11/20 09/21/20 History furosemide 10 mg PO DAILY@0800 09/30/20 10/11/20 10/10/20 History furosemide 40 mg PO DAILY@0800 09/30/20 10/11/20 10/10/20 History guaifenesin 200 mg PO Q4H PRN 09/30/20 10/11/20 Unknown History levofloxacin 750 mg PO DAILY@0600 #5 tab 10/04/20 10/11/20 10/09/20 Rx prednisone 20 mg PO DAILY #7 tab 10/04/20 10/11/20 10/08/20 Rx levothyroxine 125 mcg PO DAILY@0700 10/11/20 10/11/20 10/10/20 History ogdfzpxt-xljrgtbfxZl-kqfhrgciX 1 applic TOPICAL BID PRN 10/11/20 10/11/20 Unknown History [Neosporin (iet-cwq-dszyl)] prednisone 2.5 mg PO .COMPELX 10/11/20 10/11/20 10/10/20 History Allergies Allergy/AdvReac Type Severity Reaction Status Date / Time No Known Allergies Allergy Verified 06/11/20 23:19 PFSH Acute PFSH: Medical History Acute respiratory failure with hypoxia and hypercapnia Alzheimers disease Bipolar 1 disorder Chronic anticoagulation DVT (deep venous thrombosis) Hypothyroidism, unspecified Hypoxemia Pathological dislocation of both shoulder joints Suprapubic catheter Traumatic injury of urethra Trisomy 21 Social History Smoking and tobacco status: never smoked Alcohol intake: never Housing: Assisted Living Facility Marital status: Single Current occupational status: disabled History of recent travel: No Vitals/I&O/Wt Last Vital Signs Temp 98.5 F 10/11/20 10:05 Pulse 106 H 10/11/20 16:45 Resp 32 H 10/11/20 16:45 BP 116/95 03/26/21 16:45 Pulse Ox 95 10/11/20 16:45 10/11/20 10/11/20 10/11/20 06:59 14:59 22:59 Intake Total 50 / 50 150 / 200 Output Total 1000 / 1000 Balance 50 / 50 -850 / -800 Weight last 48 hrs Weight 80.24 kg Physical Exam Narrative: EXAM NARRATIVE: GEN: Awake, non verbal, olmedo snot respond to questions CVS: S1S2 N RS: B/L coarse crackles to auscultation Abd: Soft, nt/nd , bs+ [place]: unbale to assess at this time due to mental status EXT: no edema cyanosis or clubbing Data : 10/11/20 09:44 10/11/20 09:44 Micro: Microbiology 10/11/20 11:59 Blood Culture - Preliminary Blood SPECIMEN COLLECTED 10/11/20 11:59 Blood Culture - Preliminary Blood SPECIMEN COLLECTED A&P Assessment and plan (1) Acute respiratory failure with hypoxia and hypercapnia: Currently on Bipap support, ABG noted, continue BIpap add duoneb q6h Status: Acute (2) Aspiration pneumonia: abx coverage with zosyn and vancomycin sputum cx MRSA PCR Rapid covid, influenza negative Status: Acute Attestations Medical Necessity Statement*: aspiration pneumonia with respiratory failure, needs iv abx and Bipap support Coding Level of Care Code 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
--- NOTE | 2020-10-11 19:07 | PC.NURSE ---
Caleb gave verbal order to hold fluids
[2020-10-11 20:42] LABS: SARS Covid-2 Antigen Negative (Negative)
--- NOTE | 2020-10-11 22:37 | PC.NURSE ---
Patient pulling IV's and not able to follow verbal reminders of not removing lines. Called Dr. Roach and received orders for 1:1 sitter, notified warehouse stock clerk of sitter needed in ICU. Continue care.
--- NOTE | 2020-10-11 23:37 | PC.NURSE ---
patient pulled IV L wrist, not wanting to keep Bipap on and trying to pull at catheter, Dr. Roach notified and approved order for one on one sitter
[2020-10-11] MEDS: vancomycin 1,250 MG/250 ML PIGGYBACK 250 MG IV (23:51)
[2020-10-12] VITALS (50 sets, daily range): BP systolic 81–156; BP diastolic 46–115; PULSE 59–106; RESP 12–30; TEMP 36.5–37.1; O2SAT 75–100
[2020-10-12] MEDS: piperacillin-tazobactam 3.375 GM in sodium chloride 0.9% (plus) 50 ML IV ×3 (01:28→17:31)
[2020-10-12] MEDS: LORazepam 2 mg/mL INJ 1 mL 1 MG IVP ×2 (01:42→14:43)
--- NOTE | 2020-10-12 02:03 | PC.NURSE ---
increased frequency and severity of tremors to upper extremities noted, increased RR in high 30s, PRN ativan administered per order, RT suctioned airway, no tremors noted at this time, patient currently on NC, LOC at baseline looks when name is called but does not respond or follow commands
[2020-10-12 02:04] LABS: ABG PCO2 77.4 mmHg (35-45); ABG PH Result 7.37 (7.35-7.45); Arterial Blood Gas Hematocrit 41.1 % (42-52); Base Excess ABG 15.8 mmol/L (-2.0-2.0); Blood Gas Allen Test Pos; Blood Gas Operator Identificat JB; Blood Gas Sample Site Radial, right; Blood Gas Sample Type Arterial; Carboxyhemoglobin 1.3 %THgb (0.4-20.1); HGB O2 Sat 95.9 % (95-100); Ionized Calcium Level - ABG 1.1 mmol/L (1.1-1.4); Methemoglobin < 0.0 % (0.4-1.5); Oxygen Device NC; Oxygen Saturation ABG 96.5; PO2 ABG 76.9 mmHg (80.0-100.0); Total Hemoglobin 13.4 g/dL (14-18)
--- NOTE | 2020-10-12 02:28 | PC.NURSE ---
increased secretions obstructing airway, patient unable to clear or suction by staff, O2 drops to 80s while on bipap, RT consulted unable to reach guardian on chart, RT placed patient on oxy mask and nasal trumpet
--- NOTE | 2020-10-12 02:47 | PC.NURSE ---
Dr. Roach contacted and informed of decline in condition and obstructed airway, and clarified AND status with DR. Roach, this nurse was advised to have RT place patient on HFNC
[2020-10-12] MEDS: morphine 4 mg/mL SDV 1 mL 2 MG IVP (02:52)
--- NOTE | 2020-10-12 03:38 | PC.NURSE ---
Addendum entered by Ramu Godinez RN 10/12/20 03:41: RT informed this nurse an abg could be obtained in a couple of hours since one was obtained at 0149 Original Note: O2 83 on 15L Oxy mask, Dr. Roach notified as well that RT thought patient would not tolorate the HFNC which is why patient is still on Oxymask, Dr. Roach ordered an ABG, this nurse informed HCP that an ABG was obtained at 0149
--- NOTE | 2020-10-12 03:46 | PC.NURSE ---
RT notified of Dr. Vergara's order for HF and ABG and O2 sat of 80, RT to to come to bedside
[2020-10-12 05:29] LABS: Basophils # 0.1 10^3/uL (0.0-0.1); Basophils % 0.7 %; Eosinophils # 0.1 10^3/uL (0.0-0.8); Eosinophils % 1.3 %; Hematocrit 41.7 % (42.0-52.0); Hemoglobin 12.1 g/dL (11.7-16.6); Lymphocytes # 0.5 10^3/uL (0.8-4.8); Lymphocytes % 7.2 %; Mean Corpuscular Hemoglobin 31.4 pg (28.0-34.0); Mean Corpuscular Volume 108.3 fL (80-94); Monocytes # 0.7 10^3/uL (0.2-0.9); Monocytes % 9.7 %; Neutrophils # 5.42 10^3/uL (1.8-7.7); Neutrophils % 79.6 %; Nucleated Red Blood Cells % 0 %; Platelet Count 147 10^3/cmm (130-400); Red Blood Count 3.85 10^6/uL (4.1-5.3); Red Cell Distribution Width 16.9 % (12.1-15.1); White Blood Count 6.8 10^3/uL (4.0-10.0)
--- NOTE | 2020-10-12 05:47 | PC.NURSE ---
Dr. Roach at bedside, observed patient, no N.O. at this time
[2020-10-12 06:01] LABS: Alanine Aminotransferase 19 U/L (0-41); Albumin Level 2.9 g/dL (3.5-5.2); Alkaline Phosphatase 70 IU/L (40-130); Anion Gap 8.9 (5-19); Aspartate Amino Transferase 18 U/L (0-40); Blood Urea Nitrogen 16 mg/dL (6-20); Calcium 7.9 mg/dL (8.5-10.5); Chloride 99 mmol/L (98-107); Globulin 3.8 g/dL (1.3-4.6); Glomerular Filtration Rate 98.9 mL/min (90-130); Glucose 83 mg/dL (65-115); Osmolality Calculated 302 mOsm/kg (285-295); Potassium 3.9 mmol/L (3.5-5.1); Sodium 146 mmol/L (136-145); Total Bilirubin 0.8 mg/dL (0.15-1.2); Total Protein 6.7 g/dL (6.6-8.7)
[2020-10-12 06:06] LABS: Carbon Dioxide 42 mmol/L (22-29)
[2020-10-12] MEDS: vancomycin 1,250 MG/250 ML PIGGYBACK 250 MG IV (12:10)
[2020-10-12] MEDS: enoxaparin 40 mg/0.4 mL Syringe SUBCUT (14:07)
[2020-10-12] MEDS: sodium chloride 0.9% 1,000 ML 100 ML IV (14:08)
--- NOTE | 2020-10-12 14:23 | PM.PN ---
Subjective Subjective: Interval history: Patient is currently on Levophed at 6 mics per hour, afebrile, leukocytosis today resolved at 6.8, sodium trending up to 146. Overnight thought to have seizure-like activity for which Ativan was given, patient this morning is lethargic, nonverbal, does not wake up to calling name, blood culture 1 out of 4 reported positive for GPC in clusters, will await identification Medications: Reviewed: Yes Vitals/I&O/Wt Last Vital Signs Temp 97.7 F 10/12/20 07:43 Pulse 90 10/12/20 14:00 Resp 25 H 10/12/20 14:00 BP 100/51 10/12/20 14:00 Pulse Ox 92 10/12/20 14:00 10/11/20 10/12/20 10/12/20 22:59 06:59 14:59 Intake Total 150 / 200 100 / 300 597.412 / 597.412 Output Total 1000 / 1000 1100 / 2100 300 / 300 Balance -850 / -800 -1000 / -1800 297.412 / 297.412 Weight last 48 hrs Weight 81.647 kg Weight 80.24 kg Physical Exam Narrative: EXAM NARRATIVE: GEN: Somnolent, does not open eyes or follow commands CVS: S1S2 N RS: B/L coarse crackles to auscultation Abd: Soft, nt/nd , bs+ 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: unable to assess at this time due to mental status EXT: no edema cyanosis or clubbing Urinary Catheter Management^: Suprapubic: Cath Placed During This Visit: no Reason for Continuing Indwelling Catheter: Accurate Measurement of Urinary Output in Critically Ill Patients Data : 10/12/20 05:10 10/12/20 05:10 Micro: Microbiology 10/11/20 20:00 MRSA Culture - Final Nose 10/12/20 13:56 Blood Culture - Preliminary Blood SPECIMEN COLLECTED 10/12/20 13:51 Blood Culture - Preliminary Blood SPECIMEN COLLECTED 10/11/20 11:59 Blood Culture - Preliminary Blood NEGATIVE TO DATE 10/11/20 11:59 Blood Culture - Preliminary Blood Gram positive cocci 10/11/20 12:49 Urine Culture - Preliminary Urine,Clean Catch A&P Assessment and plan (1) Acute respiratory failure with hypoxia and hypercapnia: Continued BiPAP support Increase steroids to 40 mg IV every 8 hours Status: Acute (2) Aspiration pneumonia: abx coverage with zosyn and vancomycin sputum cx MRSA PCR Rapid covid, influenza negative Status: Acute (3) Sepsis associated hypotension: Abx coverage as above Related to aspiration pneumonia, currently on levophed BNP WNL, Cheetah placed, npt fluid responsive based on low SVI Check echocardiogram continue maintainnce fluids Titrate levophed check rept blood cx, thus far 1/ + GPC in clusters Status: Acute Attestations Medical Necessity Statement*: sepsis, needs iv abx, Pressor support, respiratory support Coding Level of Care Code 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
--- NOTE | 2020-10-12 14:25 | USCV_ITS ---
Hung Nicanor Age: 60 Gender: M : 1960 Exam Date: 10/12/2020 17:09 Ordering Phys: Maritza Ellis MD Technologist: Nikkie Carty Exam Location: [facility] [place] Indication: Septic shock on pressors, h/o CHF, Estimate EF and diastolic function BP: 118 / 80 HR: 73 Rhythm: Sinus Technical Quality: Fair MEASUREMENTS (Male / Female) Normal Values 2D ECHO LV Diastolic Diameter PLAX 4.7 cm 4.2 - 5.9 / 3.9 - 5.3 cm LV Systolic Diameter PLAX 3.2 cm LV Chamber Size 3.1 cm IVS Diastolic Thickness 0.9 cm 0.6 - 1.0 / 0.6 - 0.9 cm IVS Systolic Thickness 1.1 cm LVPW Diastolic Thickness 0.9 cm 0.6 - 1.0 / 0.6 - 0.9 cm LVPW Systolic Thickness 1.3 cm RV Chamber Size 2.3 cm LVOT Diameter 2.0 cm LV Ejection Fraction 2D Teich 58.9 % LV Ejection Fraction MOD 2C 59.7 % LV Ejection Fraction 2C AL 62.0 % LA Diameter 2.6 cm LA Width 2.6 cm LA Height 3.8 cm RA Width 2.7 cm RA Height 4.3 cm Aorta at Sinotubular Diameter 2.2 cm M-MODE LV Diastolic Diameter MM 4.9 cm 4.2 - 5.9 / 3.9 - 5.3 cm LV Systolic Diameter MM 3.5 cm LV Ejection Fraction MM Teich 55.4 % IVS Diastolic Thickness MM 1.3 cm 0.6 - 1.0 / 0.6 - 0.9 cm IVS Systolic Thickness MM 1.0 cm LVPW Diastolic Thickness MM 1.1 cm 0.6 - 1.0 / 0.6 - 0.9 cm LVPW Systolic Thickness MM 1.4 cm RV Diastolic Diameter MM 1.1 cm Aortic Annulus Diameter 2.8 cm LA Ao Ratio MM 1.1 MV E Point Septal Separation 0.9 cm DOPPLER AV Peak Velocity 153.0 cm/s LVOT Peak Velocity 96.0 cm/s AV Area Cont Eq vti 2.0 cm squared AV Area Cont Eq pk 1.9 cm squared MV Area PHT 5.0 cm squared Mitral E to A Ratio 1.2 MV E' Velocity 54.5 cm/s Mitral E to MV E' Ratio 15.2 Mitral E to LV E' Lateral Ratio 15.0 Mitral E to LV E' Septal Ratio 15.7 TV Peak E Velocity 76.0 cm/s Right Atrial Pressure 8.0 mmHg PV Peak Velocity 124.0 cm/s RV Acceleration Time 0.1 s RV Ejection Time 0.3 s RV AcT/ET 0.4 FINDINGS Left Ventricle Normal left ventricular size. LV systolic function is normal with EF of 50-55%. No regional wall motion abnormalities are seen. Diastolic function is abnormal Right Ventricle The right ventricle is mildly dilated Right Atrium The right atrium is normal in size. Left Atrium The left atrium is normal in size. Mitral Valve Structurally normal mitral valve without significant stenosis or prolapse. There is trace mitral regurgitation. Aortic Valve Structurally normal aortic valve without significant sclerosis or stenosis. There is no aortic regurgitation. Tricuspid Valve Structurally normal tricuspid valve without significant stenosis. Trace tricuspid regurgitation. Insufficient TR jet to calculate RVSP. Pulmonic Valve Structurally normal pulmonic valve without significant stenosis. There is no pulmonic regurgitation. Pericardium Normal pericardium without effusion. Aorta Normal ascending aorta dimension. CONCLUSIONS LV systolic function is normal with EF of 50-55% Diastolic function is abnormal Right ventricle is mildly dilated Trace mitral regurgitation No comparison studies are available Juan Kerr MD (Electronically Signed) Final Date: 13 October 2020 13:42 S
--- NOTE | 2020-10-12 14:38 | PC.NURSE ---
Patient restless and attempting to get out of bed. He attempts to remove all linens, IV lines, BiPap mask and monitor cords. Reoriented the patient to place and situation and primary nurse notified. Titoter and this nurse at bedside.
[2020-10-12] MEDS: dextrose 5%-sod chloride 0.45% 1,000 ML 75 ML IV (14:47)
--- NOTE | 2020-10-12 19:00 | PC.NURSE ---
All care documented by occupational health nursing director between 10/12/2020/ [id number] was under my supervision.
[2020-10-12] MEDS: vancomycin 1,250 MG/250 ML PIGGYBACK 150 MG IV (22:27)
[2020-10-13] VITALS (37 sets, daily range): BP systolic 79–130; BP diastolic 44–104; PULSE 45–101; RESP 12–25; TEMP 36.3–36.9; O2SAT 64–98
[2020-10-13] MEDS: piperacillin-tazobactam 3.375 GM in sodium chloride 0.9% (plus) 50 ML IV ×2 (02:23→09:28)
[2020-10-13] MEDS: LORazepam 2 mg/mL INJ 1 mL 1 MG IVP (02:49)
--- NOTE | 2020-10-13 02:49 | PC.NURSE ---
Ativan Administered 1mg ativan administed IV for making multipe attempts to take off Bipap, pulling at IV's and EKG leads. Attempted distraction methods worked for brief period. Pt agitated and restless moving legs continuously and yelling out.
--- NOTE | 2020-10-13 03:20 | PC.NURSE ---
Dr. Roach Notified after administration of ativan breathing using accessory muscles on bipap, low tidal volumes 100-250. O2 sats 96%. RT at bedside adjusting bipap settings. Increased coarse/rhonchi lung sounds. Pt has weak non-productive cough. Nurse concerned with dosage of ativan. Orders received to obtain chest xray and ABG.
--- NOTE | 2020-10-13 03:23 | XRR_ITS ---
PROCEDURE INFORMATION: Exam: XR Chest Exam date and time: 10/13/2020 3:41 AM Age: 60 years old Clinical indication: Dyspnea and other: Congestion; Patient HX: On bipap; Additional info: Increased lung congestion TECHNIQUE: Imaging protocol: XR of the chest Views: 1 view. COMPARISON: CR XR chest 1V portable [id number] 10/11/2020 11:14 AM FINDINGS: Lungs: Mild airspace opacity in the right lung base may indicate infection. Pleural spaces: Unremarkable. No pleural effusion. No pneumothorax. Heart/Mediastinum: The heart size is at the upper limit of normal. Bones/joints: No acute fracture. XR/XR chest 1V portable [id number] IMPRESSION: Mild airspace opacity in the right lung base may indicate infection.
[2020-10-13 03:29] LABS: ABG PH Result 7.35 (7.35-7.45); Arterial Blood Gas Hematocrit 38.9 % (42-52); Base Excess ABG 11.8 mmol/L (-2.0-2.0); Blood Gas Sample Type Arterial; HCO3 ABG 40.5 mmol/L (22-26)
[2020-10-13 03:30] LABS: Blood Gas Sample Site Brachial, right; Oxygen Device BIPAP
[2020-10-13 03:35] LABS: ABG PCO2 73.9 mmHg (35-45)
[2020-10-13] MEDS: dextrose 5%-sod chloride 0.45% 1,000 ML 75 ML IV ×2 (05:04→18:48)
[2020-10-13 05:30] LABS: Basophils % 0.2 %; Hematocrit 40.4 % (42.0-52.0); Hemoglobin 12.3 g/dL (11.7-16.6); Lymphocytes # 0.4 10^3/uL (0.8-4.8); Lymphocytes % 3.8 %; Mean Corpuscular HGB Conc 30.4 g/dL (30.0-36.0); Mean Corpuscular Hemoglobin 31.5 pg (28.0-34.0); Mean Corpuscular Volume 103.3 fL (80-94); Mean Platelet Volume 10.6 fL (7.4-10.4); Monocytes # 0.1 10^3/uL (0.2-0.9); Monocytes % 0.9 %; Neutrophils # 9.27 10^3/uL (1.8-7.7); Nucleated Red Blood Cells % 0 %; Platelet Count 191 10^3/cmm (130-400); Red Blood Count 3.91 10^6/uL (4.1-5.3); Red Cell Distribution Width 15.3 % (12.1-15.1); White Blood Count 9.9 10^3/uL (4.0-10.0)
[2020-10-13 05:50] LABS: Alanine Aminotransferase 16 U/L (0-41); Albumin Level 3.1 g/dL (3.5-5.2); Alkaline Phosphatase 68 IU/L (40-130); Aspartate Amino Transferase 17 U/L (0-40); Blood Urea Nitrogen 13 mg/dL (6-20); Calcium 8.1 mg/dL (8.5-10.5); Carbon Dioxide 37 mmol/L (22-29); Chloride 100 mmol/L (98-107); Globulin 3.6 g/dL (1.3-4.6); Glomerular Filtration Rate 98.9 mL/min (90-130); Glucose 174 mg/dL (65-115); Osmolality Calculated 300 mOsm/kg (285-295); Sodium 143 mmol/L (136-145); Total Bilirubin 0.7 mg/dL (0.15-1.2); Total Protein 6.7 g/dL (6.6-8.7)
--- NOTE | 2020-10-13 06:08 | PC.NURSE ---
Bradycardia Pt sinus dc rate sustaining 44-49. Levophed infusing at 10mcg/min. Baseline has been 50's-70's this shift. Notified Dr. Roach at this time and received orders to start dopamine drip and titrate off levophed.
[2020-10-13] MEDS: DOPamine drip 400 MG/250 ML PREMIX 16.4 MG IV (06:19)
--- NOTE | 2020-10-13 10:31 | PC.NURSE ---
Nurse called [facility] and spoke with patient's caregiver Rocio and notified her about transitioning patient to comfort care measures. She said she would call family and notify them. Dr. Ellis ordered pressers be stopped and patient to be taken off of BiPap. Nurse asked that we wait until family be notified and see if they are able to visit. Dr. Ellis agreed.
[2020-10-13 10:36] LABS: Vancomycin Trough 17.5 ug/mL (10-15)
--- NOTE | 2020-10-13 10:47 | P.PN_ITS ---
Subjective Subjective: Interval history: Overnight patient's heart rate dropped to 49 and a second pressor by way of dopamine needed to be added. Patient remained on BiPAP overnight. This morning his mental status is slightly improved. He still does not follow commands, however is able to open his eyes and move extremities spontaneously. Medications: Reviewed: Yes Vitals/I&O/Wt Last Vital Signs Temp 98.3 F 10/13/20 08:00 Pulse 59 L 10/13/20 09:19 Resp 18 10/13/20 08:00 BP 103/44 10/13/20 08:00 Pulse Ox 90 10/13/20 09:19 10/12/20 10/13/20 10/13/20 22:59 06:59 14:59 Intake Total 358.275 / 1895.802 8545.833 / 2693.520 90.753 / 90.753 Output Total 200 / 500 900 / 1400 Balance 158.275 / 505.687 787.833 / 1293.520 90.753 / 90.753 Weight last 48 hrs Weight 87.498 kg Weight 81.647 kg Physical Exam Narrative: EXAM NARRATIVE: GEN: Awake, moves upper extremities in bed, cooperated with socks change a little earlier in the morning. HEENT BiPAP with face shield in place CVS: S1S2 N RS: Bilateral coarse conducted breath sounds Abd: Soft, nt/nd , bs+ BLEACHER KRAFT PULP: Unable to assess at this time, however noted to be awake, does not necessarily respond to command but does move bilateral upper extremities spontaneously moving left lower extremity earlier this morning to cooperate with soft change with RN. Urinary Catheter Management^: Suprapubic: Cath Placed During This Visit: no Reason for Continuing Indwelling Catheter: Chronic Indwelling Urinary Catheter on Admission Data : 10/13/20 04:33 10/13/20 04:33 Micro: Microbiology 10/11/20 11:59 Blood Culture - Preliminary Blood Coagulase negativ staphylococc 10/11/20 12:49 Urine Culture - Final Urine,Clean Catch 10/12/20 16:10 Bacterial Antigens - Final Urine Suprapubic 10/12/20 16:10 Legionella Urinary Antigen - Final Urine,Voided 10/11/20 20:00 MRSA Culture - Final Nose 10/12/20 13:56 Blood Culture - Preliminary Blood SPECIMEN COLLECTED 10/12/20 13:51 Blood Culture - Preliminary Blood SPECIMEN COLLECTED 10/11/20 11:59 Blood Culture - Preliminary Blood NEGATIVE TO DATE A&P Assessment and plan (1) Acute respiratory failure with hypoxia and hypercapnia: Status: Acute (2) Aspiration pneumonia: Status: Acute Qualifiers: Aspiration pneumonia type: unspecified Laterality: right Lung location: lower lobe of lung Qualified Code(s): J69.0 - Pneumonitis due to inhalation of food and vomit (3) Sepsis associated hypotension: Status: Acute (4) Metabolic encephalopathy: Present on admission Status: Acute Additional A&P Information 60-year-old male with Down syndrome, dementia, progressive functional and cognitive decline over the past few months admitted on October 11, 2020 with acute respiratory failure with hypoxia and hypercapnia upon presentation, requiring BiPAP support, noted to have vomitus while on BiPAP at senior care, right lower lobe pneumonia on x-rays, with overall picture suggestive of aspiration pneumonia with sepsis present on admission and acute encephalopathy as a result of the same. #Right lower lobe aspiration pneumonia #Hypoxic hypercapnic respiratory failure, likely to be multifactorial as a re sult of pneumonia and also underlying COPD #Sepsis, hypotensive upon admission, currently on 2 pressors dopamine and Levophed. #Metabolic encephalopathy from above, appears to be improving this morning. #Down syndrome, progressive cognitive and functional decline, senior care resident Patient has been on appropriate antibiotic course of piperacillin tazobactam and IV vancomycin during the course of admission. He is on antibiotic day 3 currently. No overall improvement in pressor requirements, in fact has added a second pressor overnight, no gross improvement in respiratory status. His encep halopathy however does seem to be better today, which may in part be attributed to hydration that started yesterday. Overnight became bradycardic with heart rate down to 40s. Though there has been some improvement is in mental status today, his hemodynamics do remain compromised, as does his respiratory status. I have extensively reviewed the notes from his past admissions, patient was recently admitted for similar presentation [address] Gomez's notes from February 2020 his sats on room air are noted to be below 80, 88% with supplemental 02. He is being followed for palliative care by his PCP. Notes document end-of-life care. Reviewed also notes from neurology outpatient visits from May 2020, note made of increasing weakness and difficulty to walk, unable to ambulate by himself anymore, increased twitching also noted. Motor function is gradually deteriorating, thought to be in some stage of the dying process per notes review. He is being cared for at the senior care, caregivers have known him for over 10 years, they are committed to taking care of him to end of life, unlikely that patient would function in a half-way setting or less personal environment. He has had multiple ER visits and hospital admissions over the past year. Overall keeping in view the global deterioration ongoing at least over the past several months, continuing aggressive treatment may treat his sepsis and acute issues of pneumonia at this time, however unlikely to add any meaningful quality of life for the long-term. The point where patient is right now, next steps w ould involve placement of a central line for continuing pressors, arterial line for accurate measurement of blood pressure, transcutaneous/transvenous pacer if heart rate continues to fall. In spite of these aggressive measures, patient is unlikely to benefit from these interventions for the long-term and certainly would not add any meaningful quality. Discussed this with patient's designated guardian/hebert of state Teto Lobato that transition to a more palliative approach and an even comfort care if patient continues to deteriorate would be more appropriate. He is already a DNR/DNI. Mr. Lobato is in agreement with this recommendation. Will discontinue both levophed and dopamine. discontinue Bipap and switch to nasal canula Swallow assessment now that mentation is better If able to take po intake, start dysphagia diet, will give trial of midodrine Continue antibiotcs to complete 5 days of treatment No further aggressive interventions, no central lines, no iv pressors or drips, 02 titration to keep patient comfortable. Morphine, ativan as needed If patient continues to deteriorate in spite of above measures, transition to comfort care measures with focus on pain and anxiety management only. If survives this hospital course, consider hospice referral to enable palliative measures at senior care. Attestations Medical Necessity Statement*: transition to palliative measures, transfer out of ICU Coding Level of Care Code Acute Rejogger for Gio Monahan Diagnoses Acute respiratory failure with hypoxia and hypercapnia J96.01; J96.02 Aspiration pneumonia J69.0 Aspiration pneumonia type: unspecified Laterality: right Lung location: lower lobe of lung Sepsis associated hypotension A41.9; I95.9 Metabolic encephalopathy G93.41
[2020-10-13 10:52] LABS: Free T4 Free Thyroxine 0.86 ng/dL (0.82-1.77); T3 Free 1.2 PG/ML (2.0-4.4)
[2020-10-13] MEDS: vancomycin 1,250 MG/250 ML PIGGYBACK 150 MG IV (11:58)
--- NOTE | 2020-10-13 14:12 | PC.NURSE ---
Report called to YOHANA Francis, no further questions. Patient and belongings moved to [facility] via bed by this nurse, accompanied by patient's brother and caregiver. Bedside report given in room.
[2020-10-13] MEDS: midodrine 5 mg TABLET PO ×2 (14:20→21:00)
[2020-10-13] MEDS: enoxaparin 40 mg/0.4 mL Syringe SUBCUT (14:20)
[2020-10-13] MEDS: metroNIDAZOLE 500 MG Tablet PO (18:48)
[2020-10-14 02:08] VITALS: O2SAT 95
[2020-10-14] MEDS: LORazepam 2 mg/mL INJ 1 mL 0.5 MG IVP ×2 (04:32→21:24)
[2020-10-14] MEDS: levoFLOXacin 750 mg Tablet PO (05:51)
[2020-10-14] MEDS: dextrose 5%-sod chloride 0.45% 1,000 ML 75 ML IV ×2 (08:05→20:17)
[2020-10-14] MEDS: metroNIDAZOLE 500 MG Tablet PO ×2 (08:06→18:08)
[2020-10-14] MEDS: midodrine 5 mg TABLET PO ×3 (08:06→20:17)
[2020-10-14] MEDS: levothyroxine 150 mcg Tablet PO (08:06)
[2020-10-14] MEDS: citalopram 20 mg Tablet 40 MG PO (08:06)
[2020-10-14] MEDS: donepezil 5 MG Tablet PO (08:07)
[2020-10-14 08:29] VITALS: PULSE 72; RESP 20; O2SAT 95
--- NOTE | 2020-10-14 14:05 | PC.SOCIAL ---
Pg 2 IMM Explained to Teto Lobato, via phone, Pg 2 IMM. Copy provided to pt. Initialed, dated, & timed a copy & placed in chart.
--- NOTE | 2020-10-14 19:14 | PC.NURSE ---
Report to Francheska LUNA at this time.
--- NOTE | 2020-10-14 19:42 | P.PN_ITS ---
Subjective Subjective: Interval history: No acute events overnight.Has remained afebrile. Continue to remain on 5 L oxygen through nasal cannula. Medications: Reviewed: Yes Vitals/I&O/Wt Last Vital Signs Temp 98.5 F 10/13/20 19:16 Pulse 72 10/14/20 08:29 Resp 20 H 10/14/20 08:29 BP 114/65 10/13/20 19:16 Pulse Ox 95 10/14/20 08:29 10/14/20 10/14/20 10/14/20 06:59 14:59 22:59 Intake Total 290 / 1976.313 996.25 / 996.25 Output Total 450 / 1000 1450 / 1450 550 / 2000 Balance -160 / 976.313 -453.75 / -453.75 -550 / -1003.75 Weight last 48 hrs Weight 87.498 kg Weight 87.498 kg Physical Exam Narrative: EXAM NARRATIVE: GEN: Awake CVS: S1S2 N RS: B/L coarse breath sounds Abd: Soft, nt/nd , bs+ EXT: no edema cyanosis or clubbing Urinary Catheter Management^: Suprapubic: Cath Placed During This Visit: no Reason for Continuing Indwelling Catheter: Chronic Indwelling Urinary Catheter on Admission Data : 10/13/20 04:33 10/13/20 04:33 A&P Assessment and plan (1) Acute respiratory failure with hypoxia and hypercapnia: Status: Acute (2) Aspiration pneumonia: Status: Acute Qualifiers: Aspiration pneumonia type: unspecified Laterality: right Lung location: lower lobe of lung Qualified Code(s): J69.0 - Pneumonitis due to inhalation of food and vomit (3) Sepsis associated hypotension: Status: Acute (4) Metabolic encephalopathy: Present on admission Status: Acute Additional A&P Information 60-year-old male with Down syndrome, dementia, progressive functional and cognitive decline over the past few months admitted on October 11, 2020 with acute respiratory failure with hypoxia and hypercapnia upon presentation, requiring BiPAP support, noted to have vomitus while on BiPAP at intermediate, right lower lobe pneumonia on x-rays, with overall picture suggestive of aspiration pneumonia with sepsis present on admission and acute encephalopathy as a result of the same. #Right lower lobe aspiration pneumonia #Hypoxic hypercapnic respiratory failure, likely to be multifactorial as a result of pneumonia and also underlying COPD #Sepsis, hypotensive upon admission, currently on 2 pressors dopamine and Levophed. #Metabolic encephalopathy from above, appears to be improving this morning. #Down syndrome, progressive cognitive and functional decline, intermediate resident Patient has been on appropriate antibiotic course of piperacillin tazobactam and IV vancomycin during the course of admission. He is on antibiotic day 3 currently. No overall improvement in pressor requirements, in fact has added a second pressor overnight, no gross improvement in respiratory status. His encephalopathy however does seem to be better today, which may in part be attributed to hydration that started yesterday. Overnight became bradycardic with heart rate down to 40s. Though there has been some improvement is in mental status today, his hemodynamics do remain compromised, as does his respiratory status. I have extensively reviewed the notes from his past admissions, patient was recently admitted for similar presentation [address] Gomez's notes from February 2020 his sats on room air are noted to be below 80, 88% with supplemental 02. He is being followed for palliative care by his PCP. Notes document end-of-life care. Reviewed also notes from neurology outpatient visits from May 2020, note made of increasing weakness and difficulty to walk, unable to ambulate by himself anymore, increased twitching also noted. Motor function is gradually deteriorating, thought to be in some stage of the dying process per notes review. He is being cared for at the intermediate, caregivers have known him for over 10 years, they are committed to taking care of him to end of life, unlikely that patient would function in a halfway setting or less personal environment. He has had multiple ER visits and hospital admissions over the past year. Overall keeping in view the global deterioration ongoing at least over the past several months, continuing aggressive treatment may treat his sepsis and acute issues of pneumonia at this time, however unlikely to add any meaningful quality of life for the long-term. The point where patient is right now, next steps would involve placement of a central line for continuing pressors, arterial line for accurate measurement of blood pressure, transcutaneous/transvenous pacer if heart rate continues to fall. In spite of these aggressive measures, patient is unlikely to benefit from these interventions for the long-term and certainly would not add any meaningful quality. Discussed this with patient's designated guardian/hebert of state Teto Lobato that transition to a more palliative approach and an even comfort care if patient continues to deteriorate would be more appropriate. He is already a DNR/DNI. Mr. Lobato is in agreement with this recommendation. Will discontinue both levophed and dopamine. discontinue Bipap and switch to nasal canula Swallow assessment now that mentation is better If able to take po intake, start dysphagia diet, will give trial of midodrine Continue antibiotcs to complete 5 days of treatment No further aggressive interventions, no central lines, no iv pressors or drips, 02 titration to keep patient comfortable. Morphine, ativan as needed If patient continues to deteriorate in spite of above measures, transition to comfort care measures with focus on pain and anxiety management only. If survives this hospital course, consider hospice referral to enable palliative measures at intermediate. Attestations Medical Necessity Statement*: Currently patient is awaiting transfer to hospice. Coding Level of Care Code Acute Sas Clinical Programmer for Gio Monahan Diagnoses Acute respiratory failure with hypoxia and hypercapnia J96.01; J96.02 Aspiration pneumonia J69.0 Aspiration pneumonia type: unspecified Laterality: right Lung location: lower lobe of lung Sepsis associated hypotension A41.9; I95.9 Metabolic encephalopathy G93.41
[2020-10-15 00:51] VITALS: BP 119/83; PULSE 79; RESP 18; TEMP 36.5; O2SAT 93
[2020-10-15 08:58] VITALS: PULSE 100; RESP 24; O2SAT 93
--- NOTE | 2020-10-15 11:36 | P.DS_ITS ---
Discharge Providers Date of Admission: 10/11/20 11:55 Date of Discharge: October 15, 2020 Attending Provider at Admission: Maritza Ellis MD Attending Provider at Discharge: Bernabe Stephen MD Primary Care Provider: Jimmy Gomez MD Diagnoses at Discharge Discharge Diagnosis (1) Acute respiratory failure with hypoxia and hypercapnia: Status: Acute (2) Aspiration pneumonia: Status: Acute Qualifiers: Aspiration pneumonia type: unspecified Laterality: right Lung location: lower lobe of lung Qualified Code(s): J69.0 - Pneumonitis due to inhalation of food and vomit (3) Sepsis associated hypotension: Status: Acute (4) Metabolic encephalopathy: Status: Acute Reason for Visit Reason for Visit: possible aspiration/ change in mental status Hospital Course Hospital Course 60-year-old male with Down syndrome, dementia, progressive functional and cognitive decline over the past few months admitted on October 11, 2020 with acute respiratory failure with hypoxia and hypercapnia upon presentation, requiring BiPAP support, noted to have vomitus while on BiPAP at [facility], right lower lobe pneumonia on x-rays, with overall picture suggestive of aspiration pneumonia with sepsis present on admission and acute encephalopathy as a result of the same. #Right lower lobe aspiration pneumonia #Hypoxic hypercapnic respiratory failure, likely to be multifactorial as a result of pneumonia and also underlying COPD. #Sepsis, hypotensive upon admission, was on 2 pressors dopamine and Levophed. #Metabolic encephalopathy from above. #Down syndrome, progressive cognitive and functional decline, [facility] resident. Patient was on appropriate antibiotic course of piperacillin tazobactam and IV vancomycin during the course of admission. Dr. Gomez's notes from February 2020 his sats on room air are noted to be below 80, 88% with supplemental 02. He is being followed for palliative care by his PCP. Notes document end-of-life care. Reviewed also notes from neurology outpatient visits from May 2020, note made of increasing weakness and difficulty to walk, unable to ambulate by himself anymore, increased twitching also noted. Motor function is gradually deteriorating, thought to be in some stage of the dying process per notes review. He is being cared for at the [facility], caregivers have known him for over 10 years, they are committed to taking care of him to end of life, unlikely that patient would function in a fdc setting or less personal environment. He has had multiple ER visits and hospital admissions over the past year. Overall keeping in view the global deterioration ongoing at least over the past several months.This was Discussed with patient's designated guardian/hebert of state Teto Lobato that transition to a more palliative approach and an even comfort care if patient continues to deteriorate would be more appropriate. He is already a DNR/DNI. Mr. Lobato is in agreement with this recommendation.Aggressive management was discontinued.He was transitioned to po antibiotic. Bipap was discontinued and switch to nasal canula. Other comfort measures were initiated. He was later discharged to [facility] and [facility] hos If survives this hospital course, consider hospice referral to enable palliative measures at [facility] and [facility] was set up. Physical Exam Urinary Catheter Management^: Suprapubic: Cath Placed During This Visit: no Reason for Continuing Indwelling Catheter: Chronic Indwelling Urinary Catheter on Admission Discharge Data Data Completed and Pending: Completed Studies During Hospitalization Category Date Time Status CT angio chest PE protcl [id number] Urge nt Cat Scan 10/11/20 10:[address] head wo con* 7 0450 Urgent Cat Scan 10/11/20 10:17 Completed XR chest 1V des ble [id number] Routine Exams 10/13/20 03:23 Completed XR chest 1V des ble [id number] Stat Exams 10/11/20 10:57 Completed CV echo complete* [id number] Routine Ultrasound 10/12/20 14:25 Completed Pending at discharge Category Date Time Status Blood Culture Sta t Lab 10/11/20 11:59 Results Blood Culture Sta t Lab 10/12/20 13:56 Results Vitals: Last Vital Signs Temp 97.7 F 10/15/20 00:51 Pulse 100 10/15/20 08:58 Resp 24 H 10/15/20 08:58 BP 119/83 10/15/20 00:51 Pulse Ox 93 10/15/20 08:58 Discharge Plan Discharge Patient Disposition: Home Condition: Stable Prescriptions: New levofloxacin 750 mg tablet 750 mg PO DAILY 7 Days RF: 0 metronidazole 500 mg tablet 500 mg PO BID Qty: 14 RF: 0 Continued olanzapine [Zyprexa] 5 mg tablet 5 mg PO BEDTIME@2000 PRN (Reason: PARANOIA) RF: 0 citalopram [Celexa] 40 mg tablet 40 mg PO DAILY@08 RF: 0 donepezil [Aricept] 5 mg tablet 5 mg PO DAILY@0800 RF: 0 bismuth subsalicylate 525 mg/15 mL suspension 525 mg PO Q30M PRN (Reason: DIARRHEA/STOMACH RELIEF) RF: 0 magnesium hydroxide [Milk Of Magnesia Concentrated] 2,400 mg/10 mL suspension 30 ml PO DAILY PRN (Reason: Constipation) RF: 0 olanzapine [Zyprexa] 2.5 mg tablet 5 mg PO Q6H PRN (Reason: paranoia) RF: 0 albuterol sulfate 2.5 mg /3 mL (0.083 %) solution for nebulization 2.5 mg INHALATION Q6H PRN (Reason: Shortness Of Breath) RF: 0 (DME) Urinary Leg Bag Kit See Rx Instructions .ROUTE .MEDSUPPLY Qty: 1 RF: 12 alum-mag hydroxide-simeth [Mylanta Maximum Strength] 400-400-40 mg/5 mL suspension 30 ml PO Q4H PRN (Reason: UPSET STOMACH/GAS RELIEF) RF: 0 (DME) depends incontience diapers large See Rx Instructions .Route .MEDSUPPLY Qty: 60 RF: 6 acetaminophen [Tylenol] 325 mg Tablet 650 mg PO Q6H PRN (Reason: Pain) RF: 0 guaifenesin 100 mg/5 mL Liquid 200 mg PO Q4H PRN (Reason: Cough) RF: 0 hgilhzjp-dxsfyulihIt-jzikfifyT 3.5-400-5,000 jr-qfio-xooc Ointment In Packet 1 applic TOPICAL BID PRN (Reason: SCRATCHES) RF: 0 levothyroxine 125 mcg capsule 125 mcg PO DAILY@0700 RF: 0 Discontinued loratadine [Claritin] 10 mg tablet 10 mg PO DAILY@0800 RF: 0 furosemide 40 mg Tablet 40 mg PO DAILY@0800 RF: 0 furosemide 20 mg Tablet 10 mg PO DAILY@0800 RF: 0 prednisone 10 mg tablet 20 mg PO DAILY Qty: 7 RF: 0 levofloxacin 750 mg Tablet 750 mg PO DAILY@0600 Qty: 5 RF: 0 prednisone 5 mg Tablet 2.5 mg PO .COMPELX RF: 0 ketoconazole 2 % Cream 1 applic TOPICAL BID@0800,2000 RF: 0 Discharge Orders: Discharge Order (Routine); Ordered 10/15/20 Ordered By: Bernabe Stephen Discharge Diet: GI Soft Discharge Activity: Bedrest Patient Instructions: Metronidazole (By mouth), Levofloxacin (By mouth) Discharge Attestations Time Spent in Discharge Care*: less than 30 min Quality Metrics Clinical Quality Measures During this hospital stay, did patient experience: None Coding Level of Care Code Acute Chg FW DC note Diagnoses Acute respiratory failure with hypoxia and hypercapnia J96.01; J96.02 Aspiration pneumonia J69.0 Aspiration pneumonia type: unspecified Laterality: right Lung location: lower lobe of lung Sepsis associated hypotension A41.9; I95.9 Metabolic encephalopathy G93.41
[2020-10-15 12:20] VITALS: BP 119/83; PULSE 100; RESP 24; TEMP 36.5; O2SAT 93
--- NOTE | 2020-10-15 12:40 | PC.NURSE ---
report called to JEREMY Jarvis at [facility]
== END 2020-10-15 14:38 | disposition hospice, home (50) | DRG 871 ==
LOC: ER 11:29 → ICU 12:45 → MEDSURG 10-13 13:37
PROVIDERS: Hospitalist; Physician Assistant; Admitting Provider Student in an Organized Health Care Education/Training Program; Emergency Provider Family Medicine; PCP Internal Medicine; Visit Provider Internal Medicine
DX: A41.9 Sepsis, unspecified organism (principal); J96.02 Acute respiratory failure with hypercapnia; J96.01 Acute respiratory failure with hypoxia; J69.0 Pneumonitis due to inhalation of food and vomit; G93.41 Metabolic encephalopathy; J44.0 Chronic obstructive pulmonary disease with (acute) lower respiratory infection; I95.9 Hypotension, unspecified; Q90.9 Down syndrome, unspecified; G30.9 Alzheimer's disease, unspecified; F02.80 Dementia in other diseases classified elsewhere, unspecified severity, without behavioral disturbance, psychotic disturbance, mood disturbance, and anxiety; F31.9 Bipolar disorder, unspecified; Z86.718 Personal history of other venous thrombosis and embolism; E03.9 Hypothyroidism, unspecified; Z96.0 Presence of urogenital implants; Z66 Do not resuscitate; Z79.51 Long term (current) use of inhaled steroids
CPT/HCPCS: 36415; 36600; 70450; 71045; 71275; 80051; 80053; 80202; 81001; 82330; 82803; 82805; 83605; 83735; 83880; 84439; 84443; 84481; 84484; 85025; 86403; 87040; 87086; 87205; 87426; 87449; 87641; 93005; 93306; 94640; 94660; 94664; 96365; 96367; 96372; 96375; 99291; J1265; J1650; J1940; J1956; J2060; J2270; J2543; J2920; J3370; J7030; J7512; J7611; J7799; Q9967